=== PATIENT | male | born 1975 | race Caucasian/White ===

== ENCOUNTER → 2021-09-30 | Outpatient (CLI) | payer BC ==
[~2021-09-30] MED LIST: BEBTELOVIMAB (EUA) 175 MG/2 ML VIAL IV NR; SODIUM CHLORIDE 0.9% 500 ML 500 ML in EMPTY BAG 1 BAG IV PRN
[2021-09-30 12:20] VITALS: PULSE 99; TEMP 98
[2021-09-30 13:09] VITALS: BP 128/81; RESP 16
== END ==
LOC: PROCWHC3 12:02
PROVIDERS: ATTEND Physician Assistant Medical
DX: U07.1 COVID-19 (principal); E66.9 Obesity, unspecified; Z28.310 Unvaccinated for COVID-19; F17.200 Nicotine dependence, unspecified, uncomplicated; Z68.31 Body mass index [BMI] 31.0-31.9, adult
CPT/HCPCS: 96374; Q0222; M0222

== ENCOUNTER 2023-04-15 11:57 | Emergency (ER) | payer BC ==
--- NOTE | 2023-04-15 12:23 | ED ---
General Adult HPI - General Chief complaint: Neck Pain/Injury Stated complaint: right swelling in neck Time Seen by Provider: 04/15/23 12:07 Source: patient, RN notes reviewed, old records reviewed Mode of arrival: ambulatory Limitations: no limitations - History of Present Illness Initial comments: 47-year-old presents for evaluation of right-sided neck mass. Patient states he noticed a mass over the past 24 hours. He was seen at urgent care and had x-ray showing soft tissue density and was sent to the emergency department for evaluation by CT imaging. He denies pain. Denies fever. He is a current smoker. He reports prior alcohol use but is not currently drinking. No chest pain or abdominal pain. No difficulty breathing. No difficulty eating or swallowing. - Related Data Allergies Allergy/AdvReac Type Severity Reaction Status Date / Time No Known Allergies Allergy Verified 09/30/21 12:13 Review of Systems ROS Statement: Those systems with pertinent positive or pertinent negative responses have been documented in the HPI. ROS Other: All systems not noted in ROS Statement are negative. Past Medical History Past Medical History: No Reported History History of Any Multi-Drug Resistant Organisms: None Reported Past Surgical History: No Surgical Hx Reported Past Psychological History: No Psychological Hx Reported Past Alcohol Use History: Abuse Past Drug Use History: None Reported General Exam Limitations: no limitations General appearance: alert, in no apparent distress Head exam: Present: atraumatic, normocephalic Eye exam: Present: normal appearance, PERRL Neck exam: Present: other (Supraclavicular swelling on the right, no erythema, no tenderness) Respiratory exam: Present: normal lung sounds bilaterally. Absent: respiratory distress, wheezes Cardiovascular Exam: Present: regular rate, normal rhythm GI/Abdominal exam: Present: soft. Absent: distended, tenderness, guarding Neurological exam: Present: alert, oriented X3, CN II-XII intact. Absent: motor sensory deficit Psychiatric exam: Present: normal affect, normal mood Skin exam: Present: warm, dry, intact. Absent: cyanosis, diaphoretic Course Vital Signs 04/15/23 04/15/23 12:01 13:16 Temperature 98 F Pulse Rate 94 Respiratory 16 18 Rate Blood Pressure 134/89 O2 Sat by Pulse 98 Oximetry Medical Decision Making - Medical Decision Making Was pt. sent in by a medical professional or institution (, PA, LAND EXAMINER, urgent care, hospital, or intermediate...) When possible be specific @ -No Did you speak to anyone other than the patient for history (EMS, parent, family, police, friend...)? What history was obtained from this source @ -No Did you review nursing and triage notes (agree or disagree)? Why? @ -I reviewed and agree with nursing and triage notes Were old charts reviewed (outside hosp., previous admission, EMS record, old EKG, old radiological studies, urgent care reports/EKG's, intermediate records)? Report findings @ -No old charts were reviewed Differential Diagnosis (chest pain, altered mental status, abdominal pain women, abdominal pain men, vaginal bleeding, weakness, fever, dyspnea, syncope, headache, dizziness, GI bleed, back pain, seizure, CVA, palpatations, mental health, musculoskeletal)? @ -Lymphadenopathy, lymphoma, viral infection EKG interpreted by me (3pts min.). @ -As above X-rays interpreted by me (1pt min.). @ -None done CT interpreted by me (1pt min.). @DD showing cervical anterior lymphadenopathy consistent with exam. U/S interpreted by me (1pt. min.). @ -None done What testing was considered but not performed or refused? (CT, X-rays, U/S, labs)? Why? @ -None What meds were considered but not given or refused? Why? @ -None Did you discuss the management of the patient with other professionals (professionals i.e. , PA, LAND EXAMINER, lab, RT, psych nurse, social media content specialist, property field inspector, teacher, major gifts officer, pillowcase sewer)? Give summary @ -No Was smoking cessation discussed for >3mins.? @ -No Was critical care preformed (if so, how long)? @ -No Were there social determinants of health that impacted care today? How? (Homelessness, low income, unemployed, alcoholism, drug addiction, transportation, low edu. Level, literacy, decrease access to med. care, group home, rehab)? @ -No Was there de-escalation of care discussed even if they declined (Discuss DNR or withdrawal of care, Hospice)? DNR status @ -No What co-morbidities impacted this encounter? (DM, HTN, Smoking, COPD, CAD, Cancer, CVA, ARF, Chemo, Hep., AIDS, mental health diagnosis, sleep apnea, morbid obesity)? @ -None Was patient admitted / discharged? Hospital course, mention meds given and route, prescriptions, significant lab abnormalities, going to OR and other pertinent info. @ -47-year-old male with right-sided neck mass and swelling. No pain. Sent in for CT imaging. CT performed showing diffuse lymphadenopathy concerning for lymphoma. Patient's has an appointment arranged with hematology oncology for the following Thursday. Patient is instructed to maintain this appointment. He will return to the emergency department with any worsening or changing symptoms. Undiagnosed new problem with uncertain prognosis? @ yes , lymphadenopathy concern for lymphoma Drug Therapy requiring intensive monitoring for toxicity (Heparin, Nitro, Insulin, Cardizem)? @ -No Were any procedures done? @ -No Diagnosis/symptom? @ -Lymphadenopathy Acute, or Chronic, or Acute on Chronic? @ -[Acute Uncomplicated (without systemic symptoms) or Complicated (systemic symptoms)? @ -default Side effects of treatment? @ -No Exacerbation, Progression, or Severe Exacerbation? @ -No Poses a threat to life or bodily function? How? (Chest pain, [place], [place], pneumonia, PE, COPD, DKA, ARF, appy, cholecystitis, CVA, Diverticulitis, Homicidal, Suicidal, threat to staff... and all critical care pts) @ -[Moderate risk - Lab Data Result diagrams: 04/15/23 12:34 04/15/23 12:34 Lab Results 04/15/23 04/15/23 Range/Units 12:34 12:34 WBC 12.8 H (3.8-10.6) k/uL RBC 5.23 (4.30-5.90) m/uL Hgb 14.7 (13.0-17.5) gm/dL Hct 44.5 (39.0-53.0) % MCV 85.1 (80.0-100.0) fL MCH 28.1 (25.0-35.0) pg MCHC 33.0 (31.0-37.0) g/dL RDW 13.3 (11.5-15.5) % Plt Count 657 H (150-450) k/uL MPV 6.8 Neutrophils % 79 % Lymphocytes % 9 % Monocytes % 7 % Eosinophils % 3 % Basophils % 1 % Neutrophils # 10.2 H (1.3-7.7) k/uL Lymphocytes # 1.2 (1.0-4.8) k/uL Monocytes # 0.9 (0-1.0) k/uL Eosinophils # 0.3 (0-0.7) k/uL Basophils # 0.1 (0-0.2) k/uL Sodium 138 (137-145) mmol/L Potassium 4.4 (3.5-5.1) mmol/L Chloride 98 (98-107) mmol/L Carbon Dioxide 28 (22-30) mmol/L Anion Gap 12 mmol/L BUN 11 (9-20) mg/dL Creatinine 0.89 (0.66-1.25) mg/dL Est GFR (CKD-EPI)AfAm >90 (>60 ml/min/1.73 sqM) Est GFR (CKD-EPI)NonAf >90 (>60 ml/min/1.73 sqM) Glucose 108 H (74-99) mg/dL Calcium 10.3 H (8.4-10.2) mg/dL Total Bilirubin 0.4 (0.2-1.3) mg/dL AST 32 (17-59) U/L ALT 24 (4-49) U/L Alkaline Phosphatase 102 (38-126) U/L Total Protein 8.0 (6.3-8.2) g/dL Albumin 4.6 (3.5-5.0) g/dL Disposition Clinical Impression: Lymphadenopathy Disposition: HOME SELF-CARE Condition: Fair Instructions (If sedation given, give patient instructions): Lymphadenopathy (ED) Additional Instructions: Please follow up with hematology oncology on the Is patient prescribed a controlled substance at d/c from ED?: No Referrals: Naif Roberson [STAFF PHYSICIAN] - 04/22/23 3:00 pm (Appointment at [id number] [place] [address]) None,Stated [REFERRING] - 1-2 days Time of Disposition: 14:34
[2023-04-15 13:05] LABS: Basophils # (A) 0.1 k/uL (0-0.2); Basophils % (A) 1 %; Eosinophils # (A) 0.3 k/uL (0-0.7); Eosinophils % (A) 3 %; HCT 44.5 % (39.0-53.0); HGB 14.7 gm/dL (13.0-17.5); Lymphocytes # (A) 1.2 k/uL (1.0-4.8); Lymphocytes % (A) 9 %; MCH 28.1 pg (25.0-35.0); MCV 85.1 fL (80.0-100.0); Mean Platelet Volume 6.8; Monocytes # (A) 0.9 k/uL (0-1.0); Monocytes % (A) 7 %; Neutrophils # (A) 10.2 k/uL (1.3-7.7); Neutrophils % (A) 79 %; Platelet Count 657 k/uL (150-450); RBC 5.23 m/uL (4.30-5.90); RDW 13.3 % (11.5-15.5); WBC 12.8 k/uL (3.8-10.6)
[2023-04-15 13:10] LABS: ALT 24 U/L (4-49); AST 32 U/L (17-59); African American GFR (CKD) >90 (>60 ml/min/1.73 sqM); Albumin 4.6 g/dL (3.5-5.0); Alkaline Phosphatase 102 U/L (38-126); Anion Gap 12 mmol/L; Blood Urea Nitrogen 11 mg/dL (9-20); Calcium 10.3 mg/dL (8.4-10.2); Carbon Dioxide 28 mmol/L (22-30); Chloride 98 mmol/L (98-107); Glucose 108 mg/dL (74-99); Non-African American GFR(CKD) >90 (>60 ml/min/1.73 sqM); Potassium 4.4 mmol/L (3.5-5.1); Sodium 138 mmol/L (137-145); Total Bilirubin 0.4 mg/dL (0.2-1.3)
--- NOTE | 2023-04-15 13:24 | CT ---
EXAMINATION TYPE: CT neck chest w con CT DLP: 1129.3 mGycm, Automated exposure control for dose reduction was used. DATE OF EXAM: 04/15/2023 1:03 PM COMPARISON: 07/21/2015. CLINICAL INDICATION:Male, 47 years old with history of rt sided neck mass;, Right sided neck mass TECHNIQUE: Standard enhanced CT of the neck and chest. Axial sections with coronal and sagittal refo rmats were obtained. Contrast used:100 ml mL of Isovue 300 with IV Contrast, (none if empty) Oral contrast used: (none if empty) FINDINGS: Brain: Visualized portions are grossly unremarkable. Orbits: Unremarkable Sinuses: Grossly unremarkable. Spaces of the neck: There are right lower neck/shoulder enlarged lymph nodes the largest measuring 43 x 32 mm. Musculoskeletal: No acute osseous pathology. Lymph nodes: Multiple nonenlarged lymph nodes are seen along both anterior chains of the neck. Vascular structures: Visualized major arteries are patent without evidence of aneurysm. Thoracic Inlet/airway: Airway is patent. The lung apices are clear. Soft tissues/Thyroid: Thyroid and remainder of the soft tissues are unremarkable. Other: none. LUNGS/ PLEURA: The lung parenchyma appears unremarkable. AIRWAY: Patent and unremarkable. HEART: Size within normal limits. MEDIASTINUM: Scattered enlarged lymph nodes throughout the mediastinum and right hilar region hilar r egion measuring renal up to 23 mm. Additionally there is conglomerate right paratracheal lymphadenopa thy. AP windowr lymph node measuring up to 2.0 cm in short axis. VASCULATURE: No aortic aneurysm. MUSCULOSKELETAL: No acute osseous abnormalities SOFT TISSUES/LYMPH NODES: Unremarkable. UPPER ABDOMEN: Upper abdomen demonstrates enlarged lymph nodes which are partially visualized in the retroperitoneum and gastrohepatic region. The largest measuring 2.4 cm. IMPRESSION Right shoulder/neck lymph nodes as well as mediastinal and upper abdominal/retroperitoneal lymphadeno brianna. Findings compatible with neoplastic process. Correlate for lymphoma versus other etiologies. O ncology workup recommended
[2023-04-15 14:45] VITALS: BP 139/74; PULSE 81; RESP 16; TEMP 98.1
== END 2023-04-15 14:44 | disposition home or self-care (01) ==
LOC: EC 11:57
DX: R59.1 Generalized enlarged lymph nodes (principal); F17.200 Nicotine dependence, unspecified, uncomplicated
CPT/HCPCS: 99284; 36415; 80053; 85025; 70491; 71260; Q9967

== ENCOUNTER 2023-05-12 12:11 | Day surgery (SDC) | payer BC ==
[2023-05-12] MEDS ORDERED: ALPRAZolam 0.5 MG TAB PO STA (13:32)
[2023-05-12 13:39] VITALS: RESP 16; TEMP 97.6
[2023-05-12 14:54] VITALS: BP 111/75; PULSE 98
--- NOTE | 2023-05-12 15:16 | US ---
ULTRASOUND GUIDED CORE BIOPSY RIGHT NECK LYMPH NODE: CLINICAL HISTORY: Right neck lymph node FINDINGS: The procedure was explained to the patient. The risks, complications, benefits and alternatives were discussed and any questions were answered. Informed consent was obtained. Patient was placed supin e on the ultrasound table and prepped and draped in the usual sterile fashion. Utilizing a 18 gauge needle, two passes were made into the right neck lymph node. Patient was stable throughout the procedure. Pathology is pending. All elements of maximal barrier technique were utilized. IMPRESSION: 1. Successful ultrasound guided core biopsy right neck lymph node.
== END 2023-05-12 14:20 | disposition home or self-care (01) ==
LOC: RADPROMAIN 12:11
PROVIDERS: ATTEND Internal Medicine
DX: R59.0 Localized enlarged lymph nodes (principal); C96.9 Malignant neoplasm of lymphoid, hematopoietic and related tissue, unspecified
CPT/HCPCS: 38505; 76942; 88305; 88341; 88342

== ENCOUNTER → 2023-06-04 | Outpatient (CLI) | payer BC ==
--- NOTE | 2023-06-08 15:57 | PE ---
EXAMINATION TYPE: PET CT fusion skull to thigh DATE OF EXAM: 06/04/2023 COMPARISON: None Prior PET/CT: None at this location HISTORY: Lymphadenopathy TECHNIQUE: Following the intravenous administration of 12.3 mCi of F-18 FDG, whole body images are p erformed from the skull base to the midthigh. Images are reviewed on the computer in the coronal, ax ial, and sagittal planes. Reconstructed rotating images are created on independent workstation and r eviewed on the computer. A localization and attenuation correction CT is performed in conjunction w ith the PET scan. DLP: 813.32 mGycm SCAN: Initial Blood glucose: 90 mg/dL Average Mediastinum SUV: 1.81 Average Liver SUV: 2.21 FINDINGS: NECK: Abnormal uptake is in the supraclavicular lymph nodes. Example image 54, left SUV 11.09, right SUV 8.15. Additional right supraclavicular lymph nodes are present. THORAX: There is extensive adenopathy within the mediastinum including superior mediastinum, paratrac heal, periaortic subcarinal, peribronchial, paraesophageal, para-aortic and retrocrural. Additional u ptake is within the posterior medial paraspinal soft tissue. ABDOMEN: Extensive adenopathy including celiac axis, periportal, periaortic, retrocaval. PELVIS: No abnormal uptake OSSEOUS STRUCTURES: No abnormal uptake LOCALIZATION CT: Extensive adenopathy is evident and appears to correspond to the areas of uptake. No nobstructing renal stone is in the left mid kidney. Couple punctate nonobstructing upper pole right r enal stones are present. COMPARISON: Adenopathy appears similar to comparison of 04/15/2023. IMPRESSION: 1. Extensive abnormal uptake within adenopathy within the supraclavicular regions, through the medias tinum and thoracic paraspinal soft tissue, and within the upper abdomen.
== END | disposition home or self-care (01) ==
LOC: RADPETMAIN 07:18
PROVIDERS: ATTEND Internal Medicine
DX: R59.0 Localized enlarged lymph nodes (principal)
CPT/HCPCS: 78815; A9552

== ENCOUNTER 2023-07-07 12:25 | Day surgery (SDC) | payer BC ==
[2023-07-07] MEDS: ALPRAZolam 0.5 MG TAB PO STA (12:52)
[2023-07-07 13:34] VITALS: RESP 16; TEMP 98.1
[2023-07-07 15:10] VITALS: BP 138/88; PULSE 90
--- NOTE | 2023-07-07 15:52 | US ---
EXAMINATION TYPE: US biopsy lymph node DATE OF EXAM: 07/07/2023 2:25 PM CLINICAL INDICATION:Male, 47 years old with history of R59.0 LOCALIZED ENLARGED LYMPH NODES; , thyroi d nodule. COMPARISON: 05/12/2023 ATTENDING: Dr. Toby Contreras PROCEDURE: Informed consent was obtained. The risks and benefits of the procedure were discussed with the patien t. The site was marked. Timeout procedure was performed Ultrasound imaging of the left neck demonstrates lymphadenopathy The patient was prepped, draped in the usual sterile fashion, and locally anesthetized with 1% lidoca ine. Right Four 18-gauge core biopsies were obtained. Samples were sent to the pathology department f or further analysis. Patient tolerated the procedure without incident and was sent home in stable co ndition. IMPRESSION: Successful 18-gauge core biopsy of the right neck lymph node.
== END 2023-07-07 14:25 | disposition home or self-care (01) ==
LOC: RADPROMAIN 12:25
PROVIDERS: ATTEND Internal Medicine
DX: C79.89 Secondary malignant neoplasm of other specified sites (principal)
CPT/HCPCS: 38505; 76942; 88305; 88341; 88342

== ENCOUNTER → 2023-09-07 | Outpatient (CLI) | payer BC ==
[2023-09-07 14:07] LABS: African American GFR (CKD) 77 (>60 ml/min/1.73 sqM); Blood Urea Nitrogen 13 mg/dL (9-20); Non-African American GFR(CKD) 66 (>60 ml/min/1.73 sqM)
--- NOTE | 2023-09-07 16:00 | CT ---
EXAMINATION TYPE: CT soft tissue neck w con DATE OF EXAM: 09/07/2023 COMPARISON: 04/15/2023 and 06/04/2023 HISTORY: 47-year-old male C80.0 Suspected CA. TECHNIQUE: Contiguous axial scanning of the soft tissues of the neck performed with IV Contrast, steven ent injected with 100ml mL of Isovue 300. Coronal/sagittal reconstructions performed. CT DLP: 3097.7 mGycm Automated exposure control for dose reduction was used. FINDINGS: Lower right cervical adenopathy measures up to 3.7 cm versus 3.5 cm previously. Left paramedian lower neck adenopathy measures up to 2.2 cm versus 1.2 cm, previously. Medial left supraclavicular adenopathy measures 3.4 cm versus 2.0 cm, previously. Medial right lower cervical adenopathy measures 2.7 cm versus 1.9 cm, previously. Small 2.5 cm intramuscular lipoma medial right pectoralis major. Small 8 mm hypodense nodule right lobe of the thyroid gland. Submandibular glands are satisfactory. Parotid glands are mildly atrophic. Punctate calcifications of the bilateral palatine tonsils. Nasopharynx and oropharynx are otherwise c lear. Epiglottis and prevertebral soft tissues are satisfactory. Glottic and subglottic structures as well as the tracheal column are clear. Moderate spondylotic change at C6/C7. Visualized intracranial structures, orbits and globes, paranasal sinuses, and mastoid air cells appea r clear. IMPRESSION: SLIGHT PROGRESSION IN MID AND LOWER CERVICAL ADENOPATHY COMPARED TO 06/04/2023 WITH LYMPH NODES MEASUR ING UP TO 3.7 CM.
--- NOTE | 2023-09-07 16:55 | CT ---
EXAMINATION TYPE: CT ChestAbdPelvis w con DATE OF EXAM: 09/07/2023 COMPARISON: Head CT 06/04/2023 HISTORY: 47-year-old male C80.0, Suspected CA. TECHNIQUE: Contiguous axial scanning of the chest, abdomen, and pelvis performed with IV Contrast, pa tient injected with 100ml mL of Isovue 300. Delayed images through the kidneys were obtained. Coronal /sagittal reconstructions performed. CT DLP: 3097.7 mGycm Automated exposure control for dose reduction was used. FINDINGS: Chest: Heart is normal size with small anterior pericardial effusion which is unchanged. Aorta normal caliber with conventional arch vessel branching anatomy. Redemonstrated diffuse mediastinal adenopathy. Lymph nodes have enlarged in the interval currently me asuring up to 5.1 cm versus up to 3.2 cm, previously. Additional posterior mediastinal paraspinal adenopathy and retrocrural adenopathy measuring up to 3.8 cm versus 2.5 cm, previously. There is some pleural-based nodularity posteromedial lower lung measuring up to 3.7 cm on the right v ersus 2.1 cm previously. New small right and trace left pleural effusions. Some patchy density at the right base probably atel ectasis. ABDOMEN: No definite focal liver lesion is seen. There is anterior displacement of the main portal vein due to extensive underlying gastrohepatic and loulou hepatic adenopathy. This extends to the retroperitoneum with no conglomerate adenopathy measuri ng up to 14.3 cm. Clustered, prominent nodes in the gastrohepatic ligament region measuring up to 7.2 cm, previously. Individual retroperitoneal nodes measure up to 7.0 cm on the left versus 4.3 cm, previously. There is moderate left-sided hydronephrosis and delayed excretion of contrast from the left kidney. T he reason for this unclear. 5 mm nonobstructing left renal calculus. No dilated small bowel, free fluid, or free air. Normal appendix. Mild stool burden. Mildly redundant sigmoid colon. No pericolonic inflammatory dinero e. Pelvis: Bladder incompletely distended. No abnormal fluid collection in the pelvis or pelvic lymphadenopathy. Bones: Mild degenerative change of the hips. Facet arthropathy lower lumbar spine. Normal variant sternal fo ramen. No osseous destructive process. IMPRESSION: 1. PROGRESSIVE ANTERIOR, MIDDLE, AND POSTERIOR MEDIASTINAL ADENOPATHY. WORSENING RETROCRURAL ADENOPAT HY. INCREASING PLEURAL-BASED NODULARITY POSTEROMEDIAL MID AND LOWER LUNGS NOW WITH SMALL RIGHT AND TR SARAI LEFT PLEURAL EFFUSIONS. 2. WORSENING, NOW CONGLOMERATE UPPER ABDOMINAL AND RETROPERITONEAL ADENOPATHY. 3. MODERATE LEFT-SIDED HYDRONEPHROSIS APPEARS WORSENED FROM PRIOR. UNCLEAR ETIOLOGY.
== END | disposition home or self-care (01) ==
LOC: RADCTMAIN 13:04
PROVIDERS: ATTEND Internal Medicine
DX: C80.0 Disseminated malignant neoplasm, unspecified (principal); J90 Pleural effusion, not elsewhere classified; R59.0 Localized enlarged lymph nodes; N13.30 Unspecified hydronephrosis; R91.8 Other nonspecific abnormal finding of lung field
CPT/HCPCS: 82565; 84520; 70491; 71260; 74177; 36415; Q9967

== ENCOUNTER 2023-09-24 14:15 | Inpatient (IN) | payer BC ==
--- NOTE | 2023-09-24 14:37 | ED ---
Recheck HPI - General Chief Complaint: Recheck/Abnormal Lab/Rx Stated Complaint: Abd labs-sent from PCP Time Seen by Provider: 09/24/23 14:24 Source: patient, RN notes reviewed, old records reviewed Mode of arrival: ambulatory Limitations: no limitations - History of Present Illness Initial Comments: This is a 48-year-old male to the ER for evaluation today. Patient has new diagnosis of cancer presents to office today with evaluation in regards to po sitive outpatient lab test of increasing calcium levels. Patient himself feels weak and has been feeling increasingly weak here in the ER but has no real significant complaints MD Complaint: abnormal lab -: minutes(s) Returns Today for: Called Because of Abnormal Lab/Test, persistent/worsening pain related to initial visit Symptoms Since Prior Visit: worsening pain Context: planned re-check, called for abnormal lab result Associated Symptoms: none Treatments Prior to Arrival: other - Related Data Home Medications Medication Instructions Recorded Confirmed Dextroamphetamine/Amphetamine 30 mg PO TID PRN 04/30/23 09/30/23 [Adderall] HYDROcodone/APAP 7.5-325MG [[place] 1 tab PO TID PRN 04/30/23 09/30/23 7.5-325] lisinopriL [Zestril] 10 mg PO DAILY 04/30/23 09/30/23 Cholecalciferol (Vitamin D3) 1,250 mcg PO Q28D 09/24/23 09/30/23 [Vitamin D3 (1250 Mcg = 50,000 Iu)] Cyanocobalamin [Vitamin B-12 1,000 mcg SQ TU 09/24/23 09/30/23 Injection] OLANZapine [ZyPREXA] 2.5 - 5 mg PO DIRECTED 09/24/23 09/30/23 ondansetron HCL [Zofran] 8 mg PO Q6H PRN 09/24/23 09/30/23 Acetaminophen/Diphenhydramine 2 tab PO HS PRN 09/30/23 09/30/23 [Tylenol PM 500-25mg] Docusate [Colace] 100 mg PO DAILY PRN 09/30/23 09/30/23 amLODIPine [Norvasc] 5 mg PO DIRECTED 09/30/23 09/30/23 Allergies Allergy/AdvReac Type Severity Reaction Status Date / Time No Known Allergies Allergy Verified 09/30/23 19:26 Review of Systems ROS Statement: Those systems with pertinent positive or pertinent negative responses have been documented in the HPI. ROS Other: All systems not noted in ROS Statement are negative. Past Medical History Past Medical History: Cancer, Hyperlipidemia, Hypertension Additional Past Medical History / Comment(s): cervical and supraclavicular lymphadenopathy , constipated recently .recent tx for bronchitis. prod cough. abx and steroids.( pt states Dr Dickerson is aware) .still testing to confirm cancer . recent PET scan. left foot pain from prior injury playing basketball History of Any Multi-Drug Resistant Organisms: None Reported Past Surgical History: No Surgical Hx Reported Additional Past Surgical History / Comment(s): lymph node core biopsy right suprclavicular x2. - xanax pt states he was not asleep Past Anesthesia/Blood Transfusion Reactions: No Reported Reaction Additional Past Anesthesia/Blood Transfusion Reaction / Comment(s): no history transfusions Past Psychological History: ADD/ADHD Smoking Status: Current every day smoker - Past Family History Father Family Medical History: Diabetes Mellitus General Exam Limitations: no limitations General appearance: alert, in no apparent distress Head exam: Present: atraumatic, normocephalic, normal inspection Eye exam: Present: normal appearance, PERRL, EOMI. Absent: scleral icterus, conjunctival injection, periorbital swelling ENT exam: Present: normal exam, mucous membranes moist Neck exam: Present: normal inspection. Absent: tenderness, meningismus, lymphadenopathy Respiratory exam: Present: normal lung sounds bilaterally. Absent: respiratory distress, wheezes, rales, rhonchi, stridor Cardiovascular Exam: Present: regular rate, normal rhythm, normal heart sounds. Absent: systolic murmur, diastolic murmur, rubs, gallop, clicks GI/Abdominal exam: Present: soft, normal bowel sounds. Absent: distended, tenderness, guarding, rebound, rigid Extremities exam: Present: normal inspection, full ROM, normal capillary refill. Absent: tenderness, pedal edema, joint swelling, calf tenderness Back exam: Present: normal inspection Neurological exam: Present: alert, oriented X3, CN II-XII intact Psychiatric exam: Present: normal affect, normal mood Skin exam: Present: warm, dry, intact, normal color. Absent: rash Course Vital Signs 09/24/23 09/24/23 09/24/23 14:21 15:15 16:14 Temperature 98.0 F 97.7 F 98.3 F Pulse Rate 88 75 73 Respiratory 20 17 17 Rate Blood Pressure 163/94 166/106 167/113 O2 Sat by Pulse 98 97 100 Oximetry 09/24/23 09/24/23 09/24/23 17:02 18:05 18:30 Temperature 97.9 F Pulse Rate 71 73 71 Respiratory 20 18 17 Rate Blood Pressure 165/111 167/105 163/97 O2 Sat by Pulse 97 98 97 Oximetry 09/24/23 09/24/23 09/24/23 19:30 20:45 21:17 Temperature Pulse Rate 73 75 69 Respiratory 21 19 18 Rate Blood Pressure 146/87 175/116 182/110 O2 Sat by Pulse 97 98 99 Oximetry 09/24/23 21:30 Temperature Pulse Rate 67 Respiratory 18 Rate Blood Pressure 150/91 O2 Sat by Pulse 98 Oximetry - Reevaluation(s) Reevaluation #1: 09/24/23 16:44 Records reviewed Reevaluation #2: 09/24/23 16:44 Symptoms are unchanged Reevaluation #3: 09/24/23 16:44 Patient informed of results and questions answered Reevaluation #4: Was pt. sent in by a medical professional or institution (, PA, TOW OPERATOR, urgent care, hospital, or [facility]...) When possible be specific @ -no Did you speak to anyone other than the patient for history (EMS, parent, family, police, friend...)? What history was obtained from this source @ -no Did you review nursing and triage notes (agree or disagree)? Why? @ -agree Are old charts reviewed (outside hosp., previous admission, EMS record, old EKG, old radiological studies, urgent care reports/EKG's, [facility] records)? Report findings @ -yes Differential Diagnosis (chest pain, altered mental status, abdominal pain women, abdominal pain men, vaginal bleeding, weakness, fever, dyspnea, syncope, headache, dizziness, GI bleed, back pain, seizure, CVA, palpatations, mental health, musculoskeletal)? @ -prior EKG interpreted by me (3pts min.). @ -yes X-rays interpreted by me (1pt min.). @ -no CT interpreted by me (1pt min.). @ -no U/S interpreted by me (1pt. min.). @ -no What testing was considered but not performed or refused? (CT, X-rays, U/S, labs)? Why? @ -none What meds were considered but not given or refused? Why? @ -none Did you discuss the management of the patient with other professionals (professionals i.e. , PA, TOW OPERATOR, lab, RT, psych nurse, social service technician, numerical control nesting operator, teacher, chief data officer, high risk case manager)? Give summary @ -no Was smoking cessation discussed for >3mins.? @ -no Was critical care preformed (if so, how long)? @ -yes31 Were there social determinants of health that impacted care today? How? (Homelessness, low income, unemployed, alcoholism, drug addiction, transportation, low edu. Level, literacy, decrease access to med. care, long-term, rehab)? @ -none Was there de-escalation of care discussed even if they declined (Discuss DNR or withdrawal of care, Hospice)? DNR status @ -no What co-morbidities impacted this encounter? (DM, HTN, Smoking, COPD, CAD, Cancer, CVA, ARF, Chemo, Hep., AIDS, mental health diagnosis, sleep apnea, morbid obesity)? @ -none Was patient admitted / discharged? Hospital course, mention meds given and route, prescriptions, significant lab abnormalities, going to OR and other pertinent info. @ - 48 male with cancer malignant cancer coming in for elevation of calcium level on an outpatient basis. Patient also has acute kidney injury and will admit for IV hydration Admitted Undiagnosed new problem with uncertain prognosis? @ -no Drug Therapy requiring intensive monitoring for toxicity (Heparin, Nitro, Insuli n, Cardizem)? @ -no Were any procedures done? @ -no Diagnosis/symptom? @ -Renal failure hypercalcemia Acute, or Chronic, or Acute on Chronic? @ -Acute Uncomplicated (without systemic symptoms) or Complicated (systemic symptoms)? @ -Complicated Side effects of treatment? @ -no Exacerbation, Progression, or Severe Exacerbation? @ -exacerbation Poses a threat to life or bodily function? How? (Chest pain, USA, MO, pneumonia, PE, COPD, DKA, ARF, appy, cholecystitis, CVA, Diverticulitis, Homicidal, Suicidal, threat to staff... and all critical care pts) @ -yes with significant lab abnormalities Reevaluation #5: Differential Weakness: Hypoglycemia, shock, sepsis, hyponatremia, anemia, infection, MO, ETOH, adverse medicine reaction, overdose, stroke, this is not meant to be an all-inclusive list. - Consultations Consultation #1: Spoke with Dr. Hester to admit this patient Medical Decision Making - Medical Decision Making 48 male with cancer malignant cancer coming in for elevation of calcium level on an outpatient basis. Patient also has acute kidney injury and will admit for IV hydration - Lab Data Result diagrams: 09/25/23 08:22 09/29/23 06:54 Lab Results 09/24/23 09/24/23 Range/Units 14:38 14:38 WBC 10.7 H (3.8-10.6) k/uL RBC 4.45 (4.30-5.90) m/uL Hgb 12.7 L (13.0-17.5) gm/dL Hct 37.3 L (39.0-53.0) % MCV 83.8 (80.0-100.0) fL MCH 28.5 (25.0-35.0) pg MCHC 34.0 (31.0-37.0) g/dL RDW 16.2 H (11.5-15.5) % Plt Count 372 (150-450) k/uL MPV 10.3 Neutrophils % 78 % Lymphocytes % 7 % Monocytes % 11 % Eosinophils % 3 % Basophils % 0 % Neutrophils # 8.3 H (1.3-7.7) k/uL Lymphocytes # 0.7 L (1.0-4.8) k/uL Monocytes # 1.2 H (0-1.0) k/uL Eosinophils # 0.3 (0-0.7) k/uL Basophils # 0.1 (0-0.2) k/uL Anisocytosis Slight Sodium 141 (137-145) mmol/L Potassium 3.9 (3.5-5.1) mmol/L Chloride 102 (98-107) mmol/L Carbon Dioxide 30 (22-30) mmol/L Anion Gap 9 mmol/L BUN 33 H (9-20) mg/dL Creatinine 2.49 H (0.66-1.25) mg/dL Est GFR (CKD-EPI)AfAm 34 (>60 ml/min/1.73 sqM) Est GFR (CKD-EPI)NonAf 29 (>60 ml/min/1.73 sqM) Glucose 96 (74-99) mg/dL Calcium 13.5 H* (8.4-10.2) mg/dL Ionized Calcium Rohit 7.6 H* (4.5-5.3) mg/dL Phosphorus 4.0 (2.5-4.5) mg/dL Magnesium 1.5 L (1.6-2.3) mg/dL Total Bilirubin 0.6 (0.2-1.3) mg/dL AST 28 (17-59) U/L ALT 15 (4-49) U/L Alkaline Phosphatase 125 (38-126) U/L Total Protein 7.6 (6.3-8.2) g/dL Albumin 4.2 (3.5-5.0) g/dL - EKG Data -: EKG Interpreted by Me (EKG sinus 71 [place] 148 QRS 91 QTc 390) Disposition Clinical Impression: Hypercalcemia, SHANEKA (acute kidney injury) Disposition: ADMITTED IP TO THIS HOSP Condition: Fair Is patient prescribed a controlled substance at d/c from ED?: No Time of Disposition: 16:45
[2023-09-24] MEDS: SODIUM CHLORIDE 0.9% 1,000 ML IV STA ×2 (14:41)
[2023-09-24 15:12] LABS: Ionized Calcium 7.6 mg/dL (4.5-5.3)
[2023-09-24 15:14] LABS: ALT 15 U/L (4-49); AST 28 U/L (17-59); African American GFR (CKD) 34 (>60 ml/min/1.73 sqM); Albumin 4.2 g/dL (3.5-5.0); Alkaline Phosphatase 125 U/L (38-126); Anion Gap 9 mmol/L; Blood Urea Nitrogen 33 mg/dL (9-20); Carbon Dioxide 30 mmol/L (22-30); Chloride 102 mmol/L (98-107); Glucose 96 mg/dL (74-99); Magnesium 1.5 mg/dL (1.6-2.3); Non-African American GFR(CKD) 29 (>60 ml/min/1.73 sqM); Potassium 3.9 mmol/L (3.5-5.1); Sodium 141 mmol/L (137-145); Total Bilirubin 0.6 mg/dL (0.2-1.3); Total Protein 7.6 g/dL (6.3-8.2)
[2023-09-24 15:21] LABS: Calcium 13.5 mg/dL (8.4-10.2)
[2023-09-24 15:56] LABS: Anisocytosis Slight; Basophils # (A) 0.1 k/uL (0-0.2); Basophils % (A) 0 %; Eosinophils # (A) 0.3 k/uL (0-0.7); Eosinophils % (A) 3 %; HCT 37.3 % (39.0-53.0); HGB 12.7 gm/dL (13.0-17.5); Lymphocytes # (A) 0.7 k/uL (1.0-4.8); Lymphocytes % (A) 7 %; MCH 28.5 pg (25.0-35.0); MCV 83.8 fL (80.0-100.0); Mean Platelet Volume 10.3; Monocytes # (A) 1.2 k/uL (0-1.0); Monocytes % (A) 11 %; Neutrophils # (A) 8.3 k/uL (1.3-7.7); Neutrophils % (A) 78 %; Platelet Count 372 k/uL (150-450); RBC 4.45 m/uL (4.30-5.90); RDW 16.2 % (11.5-15.5); WBC 10.7 k/uL (3.8-10.6)
[2023-09-24] MEDS: SODIUM CHLORIDE 0.9% 1,000 ML IV ONE (16:22)
[2023-09-24] MEDS ORDERED: NALOXONE 0.4 MG/ML 1 ML VIAL IV PRN (16:41)
[2023-09-24] MEDS: LABETALOL 5 MG/ML VIAL MDV IVP STA ×2 (18:22→21:18)
[2023-09-24] MEDS: hydrALAZINE HCL 20 MG/ML 1 ML VIAL IVP PRN (22:39)
[2023-09-25 09:40] LABS: Anisocytosis Slight; Basophils # (A) 0.1 k/uL (0-0.2); Basophils % (A) 1 %; Eosinophils # (A) 0.3 k/uL (0-0.7); Eosinophils % (A) 2 %; HCT 35.7 % (39.0-53.0); HGB 11.8 gm/dL (13.0-17.5); Lymphocytes # (A) 0.9 k/uL (1.0-4.8); Lymphocytes % (A) 7 %; MCH 28.1 pg (25.0-35.0); MCHC 33.1 g/dL (31.0-37.0); MCV 84.9 fL (80.0-100.0); Mean Platelet Volume 10.2; Monocytes # (A) 1.3 k/uL (0-1.0); Monocytes % (A) 10 %; Neutrophils # (A) 10.2 k/uL (1.3-7.7); Neutrophils % (A) 79 %; Platelet Count 421 k/uL (150-450); RBC 4.21 m/uL (4.30-5.90); RDW 16.5 % (11.5-15.5); WBC 12.9 k/uL (3.8-10.6)
[2023-09-25 10:14] LABS: ALT 14 U/L (4-49); AST 24 U/L (17-59); African American GFR (CKD) 34 (>60 ml/min/1.73 sqM); Albumin 3.9 g/dL (3.5-5.0); Alkaline Phosphatase 132 U/L (38-126); Anion Gap 7 mmol/L; Blood Urea Nitrogen 28 mg/dL (9-20); Calcium 12.9 mg/dL (8.4-10.2); Carbon Dioxide 27 mmol/L (22-30); Chloride 108 mmol/L (98-107); Glucose 87 mg/dL (74-99); Magnesium 1.5 mg/dL (1.6-2.3); Non-African American GFR(CKD) 29 (>60 ml/min/1.73 sqM); Phosphorus 3.7 mg/dL (2.5-4.5); Potassium 3.8 mmol/L (3.5-5.1); Sodium 142 mmol/L (137-145); Total Bilirubin 0.4 mg/dL (0.2-1.3); Total Protein 6.9 g/dL (6.3-8.2)
--- NOTE | 2023-09-25 10:40 | P.NPCON ---
History of Present Illness - Reason for Consult acute renal failure - History of Present Illness Reason for consultation: Acute kidney injury History of present illness: Patient is a 48-year-old male seen in renal consultation for acute kidney injury. Patient's creatinine dated September 09, 2023 was 1.2. This admission it has been stable at 2.5. Patient had blood work done outpatient and was advised to go to the hospital due to high calcium level. Calcium level on admission was 13.5 with ionized calcium at 7.6. Patient has been receiving normal saline at 130 cc an hour. Calcium level this morning was 12.9. Patient states he was recently diagnosed with testicular cancer and is scheduled to start chemotherapy next week. He does admit to taking Tums as needed. Patient states he took about 4-6 tabs of Tums in the last week. He also admits to taking Aleve as needed. Patient states he was also taking a vitamin D supplement once a month. No evidence of hypotension. In fact blood pressures have been on the higher side. He was on lisinopril outpatient which is currently held. Patient had a CT of the chest abdomen and pelvis done with IV contrast on September 07, 2023 which showed increasing pleural nodularity, mediastinal adenopathy, abdominal and retroperitoneal adenopathy as well as left-sided hydronephrosis. Patient denies history of diabetes or coronary artery disease. Denies family history of renal disease. Oral intake has been poor the last few days and he did vomit once. Vital signs are stable. General: No acute distress. HEENT: Head exam is unremarkable. LUNGS: No audible rhonchi or wheezes. HEART: Rate and Rhythm are regular. ABDOMEN: Nontender. EXTREMITITES: No edema. Past Medical History Past Medical History: Cancer, Hyperlipidemia, Hypertension Additional Past Medical History / Comment(s): cervical and supraclavicular lymphadenopathy , constipated recently .recent tx for bronchitis. prod cough. abx and steroids.( pt states Dr Dickerson is aware) .still testing to confirm cancer . recent PET scan. left foot pain from prior injury playing basketball History of Any Multi-Drug Resistant Organisms: None Reported Past Surgical History: No Surgical Hx Reported Additional Past Surgical History / Comment(s): lymph node core biopsy right suprclavicular x2. - xanax pt states he was not asleep Past Anesthesia/Blood Transfusion Reactions: No Reported Reaction Additional Past Anesthesia/Blood Transfusion Reaction / Comment(s): no history transfusions Past Psychological History: ADD/ADHD Smoking Status: Current every day smoker Past Alcohol Use History: None Reported Additional Past Alcohol Use History / Comment(s): smoking less when sick. 12-13 cigarettes Past Drug Use History: None Reported - Past Family History Father Family Medical History: Diabetes Mellitus Medications and Allergies Home Medications Medication Instructions Recorded Confirmed Type Dextroamphetamine/Amphetamine 30 mg PO TID PRN 04/30/23 09/24/23 History [Adderall] HYDROcodone/APAP 7.5-325MG [[place] 1 tab PO TID PRN 04/30/23 09/24/23 History 7.5-325] lisinopriL [Zestril] 10 mg PO DAILY 04/30/23 09/24/23 History Cholecalciferol (Vitamin D3) 1,250 mcg PO Q28D 09/24/23 09/24/23 History [Vitamin D3 (1250 Mcg = 50,000 Iu)] Cyanocobalamin [Vitamin B-12 1,000 mcg SQ TU 09/24/23 09/24/23 History Injection] OLANZapine [ZyPREXA] 2.5 - 5 mg PO DIRECTED 09/24/23 09/24/23 History ondansetron HCL [Zofran] 8 mg PO Q6H PRN 09/24/23 09/24/23 History Allergies Allergy/AdvReac Type Severity Reaction Status Date / Time rosuvastatin [From Crestor] AdvReac Nausea & Verified 09/24/23 16:16 Vomiting Physical Exam Vitals: Vital Signs Temp Pulse Pulse Resp BP BP Pulse Ox 09/25/23 09:16 97.8 F 66 16 161/85 96 09/25/23 04:00 80 16 163/92 97 09/24/23 23:07 97.7 F 72 16 182/94 97 09/24/23 21:30 67 18 150/91 98 09/24/23 21:17 69 18 182/110 99 09/24/23 20:45 75 19 175/116 98 09/24/23 19:30 73 21 146/87 97 09/24/23 18:30 71 17 163/97 97 09/24/23 18:05 97.9 F 73 18 167/105 98 09/24/23 17:02 71 20 165/111 97 09/24/23 16:14 98.3 F 73 17 167/113 100 09/24/23 15:15 97.7 F 75 17 166/106 97 09/24/23 14:21 98.0 F 88 20 163/94 98 Intake and Output 09/24/23 09/25/23 09/25/23 22:59 06:59 14:59 Intake Total 540 118 Balance 540 118 Intake: Oral 540 118 Other: # Voids 1 Weight 102.965 kg Results - Lab Results Most recent lab results Calcium 12.9 mg/dL (8.4-10.2) H 09/25/23 09:21 Phosphorus 3.7 mg/dL (2.5-4.5) 09/25/23 09:21 Magnesium 1.5 mg/dL (1.6-2.3) L 09/25/23 09:21 09/25/23 08:22 09/25/23 09:21 Assessment and Plan Plan: Assessment: 1. Acute kidney injury secondary to ATN secondary to hypercalcemia. Also genet rn for obstructive uropathy with recent CAT scan showing left-sided hydronephrosis. Creatinine stable at 2.5. Creatinine 1.2 dated September 09, 2023. 2. Hypercalcemia of malignancy further worsen with the use of Tums and vitamin D supplementation. 3. Left-sided hydronephrosis. 4. Recently diagnosed malignancy with significant adenopathy noted on CAT scan. Oncology consulted. 5. Hypomagnesemia from poor intake. Plan: Resume IV fluids with normal saline at 125 cc an hour. Calcitonin IM x 1 dose today. Zometa 4 mg IV once today. Replace magnesium. Avoid nephrotoxins. Continue to avoid calcium and vitamin D supplementation at this time. Check bladder scan to rule out urinary retention. Consult urology for the hydronephrosis. Check urinalysis. Check PTH and vitamin D level. Check calcitriol level as well as serum electrophoresis with immunofixation. Thank you for the consultation. I will continue to follow the patient with you during his hospital stay.
[2023-09-25] MEDS: CALCITONIN INJ 200 UNIT/ML (MDV) VIAL IM ONE (12:20)
[2023-09-25] MEDS: ZOLEDRONIC ACID 4 MG in SODIUM CHLORIDE 0.9% 100 ML IV ONE (12:21)
[2023-09-25] MEDS: SODIUM CHLORIDE 0.9% 1,000 ML IV SCH (12:21)
[2023-09-25] MEDS: ONDANSETRON 4 MG/2 ML VIAL IVP PRN (12:56)
[2023-09-25] MEDS: MAGNESIUM SULFATE-D5W PMX 1 GM in DEXTROSE/WATER 1 100ML.BAG IVPB SCH (12:56)
[2023-09-25 15:55] LABS: Protein, Total 6.9 g/dL (6.2-8.2)
[2023-09-25] MEDS: MORPHINE SULFATE 4 MG/ML SYRINGE IV PRN (20:12)
--- NOTE | 2023-09-26 01:10 | P.CONS ---
History of Present Illness - Reason for Consult Consult date: 09/25/23 hypercalcemia, cancer hx Requesting physician: Abhishek Wise - Chief Complaint elevated calcium, weakness - History of Present Illness Mr. Dumas is a 47 year old gentleman with a PMHx significant for ADHD and HL who presents for evaluation of lymphadenopathy. He noted mass in the right shoulder and neck after showering on 04/15/2023. He denied any preceeding excess fatigue, fevers, chills, night sweats, anorexia, weight loss, or any other sites of lymphadenopathy. Due to the swelling in the right neck, he presented to [facility] for additional management. CBC noted neutrophilic leukocytosis and thrombocytosis with WBC 12.8 (ANC 10.2) and platelets 657. CMP had no acute abnormalities. CT neck and chest on 04/15/2023 lymphadenopathy in the right neck/shoulder with the largest measuring 4.3 x 3.2 cm. Right hilar and mediastinal lymphadenopathy along with gastrohepatic and retroperitoneal lymphadenopathy was also noted. Biopsy of right supraclavicular lymph node on 05/12/2023 noted atypical neoplasm. Consultation at the [facility] reported metastatic undifferentiated malignant epithelioid neoplasm, which was suspicious for melanoma based on cell morphology and prominent nucleoli. PET/CT on 06/04/2023 noted FDG avid lymphadenopathy in the left supraclavicular, mediastinal, and upper abdominal lymph nodes. Labs following initial visit revealed persistent neutrophilic leukocytosis and thrombocytosis with negative HIV, hepatitis panel, and no evidence of monoclonal gammopathy. Serum tryptase was normal. Guardant 360 circulating tumor DNA did reveal evidence of KIT [id number] mutation in addition to 2 KRAS and 2 NRAS mutations. Repeat biopsy of the right supraclavicular lymph node obtained on 07/07/2023 due to insufficient sample for cancer type ID from the original biopsy was positive for vimentin and CD117. Cancer type ID noted 96% probability of seminoma with a less than 5% probability of nonseminoma. NGS from the lymph node revealed KRAS mutation ([id number]) with RUSTAM, low TMB, and PD-L1 50%. Bone marrow biopsy on 07/24/2023 noted variable cellularity at 30 to 45% with myeloid and megakaryocyte hyperplasia and few at ypical megakaryocytes seen with no staining consistent with CD117 or tryptase. FISH and cytogenetics were normal with flow cytometry noted to have limited sample. 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 Further workup revealed elevated beta-hCG at 175 and LDH is 658 in addition to vitamin B12 and iron deficiency. He received his first dose of Feraheme and parenteral vitamin B12 on 09/07/2023. 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 Recommended proceeding with 3-4 cycles of BEP chemotherapy. Patient is scheduled to begin cycle 1 on 09/28/23. Patient presented to the emergency room for elevated calcium noted on outpatient lab testing. Patient is reporting increased generalized weakness and 2 episodes of n/v. Denies confusion, muscle cramping and constipation. On admission calcium was noted at 13.5. Ionized calcium 7.6. Patient was given 3 L normal saline bolus. Repeat calcium today 12.9. Zometa and calcitonin has been ordered by nephrology. WBC 12.9, hemoglobin 11.8, platelets 421,000. Patient also noted to be in acute kidney failure with creatinine 2.5, GFR 29. Review of Systems 10 point ROS is negative except as stated in the HPI Past Medical History Past Medical History: Cancer, Hyperlipidemia, Hypertension Additional Past Medical History / Comment(s): cervical and supraclavicular lymphadenopathy , constipated recently .recent tx for bronchitis. prod cough. abx and steroids.( pt states Dr Dickerson is aware) .still testing to confirm cancer . recent PET scan. left foot pain from prior injury playing basketball History of Any Multi-Drug Resistant Organisms: None Reported Past Surgical History: No Surgical Hx Reported Additional Past Surgical History / Comment(s): lymph node core biopsy right suprclavicular x2. - xanax pt states he was not asleep Past Anesthesia/Blood Transfusion Reactions: No Reported Reaction Additional Past Anesthesia/Blood Transfusion Reaction / Comm: no history tr ansfusions Past Psychological History: ADD/ADHD Smoking Status: Current every day smoker Past Alcohol Use History: None Reported Additional Past Alcohol Use History / Comment(s): smoking less when sick. 12-13 cigarettes Past Drug Use History: None Reported - Past Family History Father Family Medical History: Diabetes Mellitus Medications and Allergies Home Medications Medication Instructions Recorded Confirmed Type Dextroamphetamine/Amphetamine 30 mg PO TID PRN 04/30/23 09/24/23 History [Adderall] HYDROcodone/APAP 7.5-325MG [[place] 1 tab PO TID PRN 04/30/23 09/24/23 History 7.5-325] lisinopriL [Zestril] 10 mg PO DAILY 04/30/23 09/24/23 History Cholecalciferol (Vitamin D3) 1,250 mcg PO Q28D 09/24/23 09/24/23 History [Vitamin D3 (1250 Mcg = 50,000 Iu)] Cyanocobalamin [Vitamin B-12 1,000 mcg SQ TU 09/24/23 09/24/23 History Injection] OLANZapine [ZyPREXA] 2.5 - 5 mg PO DIRECTED 09/24/23 09/24/23 History ondansetron HCL [Zofran] 8 mg PO Q6H PRN 09/24/23 09/24/23 History Allergies Allergy/AdvReac Type Severity Reaction Status Date / Time rosuvastatin [From Crestor] AdvReac Nausea & Verified 09/24/23 16:16 Vomiting Physical Exam Vitals: Vital Signs Temp Pulse Pulse Resp BP BP Pulse Ox 09/25/23 09:16 97.8 F 66 16 161/85 96 09/25/23 04:00 80 16 163/92 97 09/24/23 23:07 97.7 F 72 16 182/94 97 09/24/23 21:30 67 18 150/91 98 09/24/23 21:17 69 18 182/110 99 09/24/23 20:45 75 19 175/116 98 09/24/23 19:30 73 21 146/87 97 09/24/23 18:30 71 17 163/97 97 09/24/23 18:05 97.9 F 73 18 167/105 98 09/24/23 17:02 71 20 165/111 97 09/24/23 16:14 98.3 F 73 17 167/113 100 09/24/23 15:15 97.7 F 75 17 166/106 97 09/24/23 14:21 98.0 F 88 20 163/94 98 Intake and Output 09/24/23 09/25/2324 22:59 06:59 14:59 Intake Total 540 118 Balance 540 118 Intake: Oral 540 118 Other: # Voids 1 Weight 102.965 kg - Constitutional General appearance: average body habitus, no acute distress - EENT Eyes: anicteric sclerae, EOMI ENT: hearing grossly normal - Neck approx 2-3 cm medial right supraclavicular LN Neck: lymphadenopathy - Respiratory Respiratory: bilateral: CTA - Cardiovascular Rhythm: regular Heart sounds: normal: S1, S2 - Gastrointestinal General gastrointestinal: soft, no tenderness - Integumentary Integumentary: no cyanotic, no jaundiced - Neurologic Neurologic: CNII-XII intact - Musculoskeletal Musculoskeletal: strength equal bilaterally - Psychiatric Psychiatric: A&O x's 3 Results CBC & Chem 7: 09/25/23 08:22 09/25/23 09:21 Labs: Abnormal Lab Results - Last 24 Hours (Table) 09/24/23 09/24/23 Range/Units 14:38 14:38 WBC 10.7 H (3.8-10.6) k/uL Hgb 12.7 L (13.0-17.5) gm/dL Hct 37.3 L (39.0-53.0) % RDW 16.2 H (11.5-15.5) % Neutrophils # 8.3 H (1.3-7.7) k/uL Lymphocytes # 0.7 L (1.0-4.8) k/uL Monocytes # 1.2 H (0-1.0) k/uL BUN 33 H (9-20) mg/dL Creatinine 2.49 H (0.66-1.25) mg/dL Calcium 13.5 H* (8.4-10.2) mg/dL Ionized Calcium Rohit 7.6 H* (4.5-5.3) mg/dL Magnesium 1.5 L (1.6-2.3) mg/dL Assessment and Plan (1) SHANEKA (acute kidney injury) Current Visit: Yes Status: Acute Priority: High Code(s): N17.9 - ACUTE KIDNEY FAILURE, UNSPECIFIED SNOMED Code(s): 74447890 (2) Hypercalcemia Current Visit: Yes Status: Acute Priority: High Code(s): E83.52 - HYPERCALCEMIA SNOMED Code(s): 86320773 (3) Seminoma Current Visit: Yes Status: Acute Priority: High Code(s): C62.90 - MALIG NEOPLASM OF UNSP TESTIS, UNSP DESCENDED OR UNDESCENDED SNOMED Code(s): 281028714 Plan: Hypercalcemia of malignancy: -Presented to the emergency room for elevated calcium noted on outpatient lab testing. Patient is reporting increased generalized weakness and 2 episodes of n/v -On admission calcium was noted at 13.5. Ionized calcium 7.6. Patient was given 3 L normal saline bolus. Repeat calcium today 12.9. Zometa and calcitonin has been ordered by nephrology. -Continue to monitor calcium levels daily SHANEKA: -Creatinine 2.5, GFR 29 -R/t hypercalcemia, and possibly left sided hydronephrosis noted on CT scan on 09/07/23. -Nephrology following Seminoma: -Full history in HPI -Extensive workup revealed seminoma, consistent with stage IIIB ([id number]) that is intermediate risk given LDH elevation of almost 3 times upper limit of normal -Recommended proceeding with 3-4 cycles of BEP chemotherapy. Patient is scheduled to begin cycle 1 on 09/28/23 -Pending course of hospitalization, and noted SHANEKA, may need to delay treatment due to nephrotoxicity of cisplatin Doctor attests: I performed a history and physical examination of this patient, developed impression and plan of care. Discussed with dictator. I agree with dictators note, documented as a scribe.
[2023-09-26 07:49] LABS: ALT 14 U/L (4-49); AST 28 U/L (17-59); African American GFR (CKD) 38 (>60 ml/min/1.73 sqM); Alkaline Phosphatase 145 U/L (38-126); Anion Gap 9 mmol/L; Blood Urea Nitrogen 24 mg/dL (9-20); Carbon Dioxide 23 mmol/L (22-30); Chloride 109 mmol/L (98-107); Glucose 98 mg/dL (74-99); Magnesium 1.7 mg/dL (1.6-2.3); Non-African American GFR(CKD) 33 (>60 ml/min/1.73 sqM); Potassium 3.7 mmol/L (3.5-5.1); Sodium 141 mmol/L (137-145); Total Bilirubin 0.8 mg/dL (0.2-1.3); Total Protein 7.2 g/dL (6.3-8.2)
[2023-09-26] MEDS: LORazepam 1 MG TAB PO PRN (10:08)
--- NOTE | 2023-09-26 10:14 | P.PN ---
Subjective Patient is seen in follow-up for acute kidney injury and hypercalcemia. Renal function slightly better. On IV fluids. Calcium level trending down. No active complaints. Vital signs are stable. General: No acute distress. HEENT: Head exam is unremarkable. LUNGS: No audible rhonchi or wheezes. HEART: Rate and Rhythm are regular. ABDOMEN: Nontender. EXTREMITITES: No edema. Objective - Vital Signs Vital signs: Vital Signs Temp 98.0 F 09/26/23 07:48 Pulse 103 H 09/26/23 08:00 Resp 16 09/26/23 08:00 BP 168/90 09/26/23 07:48 Pulse Ox 95 09/26/23 07:48 FiO2 Intake & Output 09/25/23 09/26/23 09/26/23 18:59 06:59 18:59 Intake Total 118 1080 Balance 118 1080 Intake: Oral 118 1080 Other: Voiding Method Toilet # Voids 1 - Labs CBC & Chem 7: 09/25/23 08:22 09/26/23 07:13 Labs: Abnormal Lab Results - Last 24 Hours (Table) 09/25/23 09/25/23 09/25/23 Range/Units 09:21 12:22 12:22 Chloride 108 H (98-107) mmol/L BUN 28 H (9-20) mg/dL Creatinine 2.50 H (0.66-1.25) mg/dL Calcium 12.9 H (8.4-10.2) mg/dL Magnesium 1.5 L (1.6-2.3) mg/dL Alkaline Phosphatase 132 H (38-126) U/L Vitamin D 25-Hydroxy 24.3 L (30.0-100.0) ng/mL PTH Intact 10.3 L (14.0-72.0) pg/mL 09/26/23 Range/Units 07:13 Chloride 109 H (98-107) mmol/L BUN 24 H (9-20) mg/dL Creatinine 2.26 H (0.66-1.25) mg/dL Calcium 12.0 H (8.4-10.2) mg/dL Magnesium (1.6-2.3) mg/dL Alkaline Phosphatase 145 H (38-126) U/L Vitamin D 25-Hydroxy (30.0-100.0) ng/mL PTH Intact (14.0-72.0) pg/mL Assessment and Plan Plan: Assessment: 1. Acute kidney injury secondary to ATN secondary to hypercalcemia. Also concern for obstructive uropathy with recent CAT scan showing left-sided hydronephrosis. Renal function better. Creatinine 2.26.. Creatinine 1.2 dated September 09, 2023. 2. Hypercalcemia of malignancy further worsen with the use of Tums and vitamin D supplementation. Status post calcitonin and Zometa given September 25, 2023. PTH appropriately suppressed at 10.3. Vitamin D level 24.3. 3. Left-sided hydronephrosis. Urology consulted. 4. Recently diagnosed seminoma with significant adenopathy noted on CAT scan. Oncology following. 5. Hypomagnesemia from poor intake. Replaced. Better. 6. Benign hypertension. Plan: Maintain IV fluids. Avoid nephrotoxins. Continue to avoid calcium and vitamin D supplementation at this time. Follow-up urinalysis. Follow-up pending workup for hypercalcemia. Add oral magnesium oxide. Add amlodipine 5 mg once daily. Maintain as needed hydralazine.
--- NOTE | 2023-09-26 11:41 | P.GSCN ---
History of Present Illness Consult date: 09/26/23 Reason for Consult: Left hydronephrosis History of present illness: This is a 48-year-old male admitted to the hospital with hypercalcemia secondary to malignancy. He is recently diagnosed with metastatic seminoma with plan to start chemotherapy on Thursday. He was admitted to the hospital due to significant hypercalcemia with acute kidney injury. His creatinine on presentation was 2.5 from a baseline of 1.2. He did have a CT abdomen pelvis on September 06 which showed evidence of left hydronephrosis, with significant retroperitoneal lymphadenopathy compressing the ureter. He is having diffuse abdominal pain but denies any focal left flank pain. Denies any voiding dysfunction or gross hematuria. No previous history of kidney stones or any previous renal surgeries. His creatinine is slowly trending down to 2.29 from a 2.5. Review of Systems - Constitutional Reports weakness, Denies chills, Denies fever - EENT Ears, nose, mouth and throat: Denies dysphagia - Cardiovascular Denies chest pain, Denies shortness of breath - Respiratory Denies cough, Denies 7 - Gastrointestinal Reports abdominal pain, Denies nausea, Denies vomiting - Genitourinary Denies dysuria, Denies flank pain, Denies hematuria Past Medical History Past Medical History: Cancer, Hyperlipidemia, Hypertension Additional Past Medical History / Comment(s): cervical and supraclavicular lymphadenopathy , constipated recently .recent tx for bronchitis. prod cough. abx and steroids.( pt states Dr Dickerson is aware) .still testing to confirm cancer . recent PET scan. left foot pain from prior injury playing basketball History of Any Multi-Drug Resistant Organisms: None Reported Past Surgical History: No Surgical Hx Reported Additional Past Surgical History / Comment(s): lymph node core biopsy right suprclavicular x2. - xanax pt states he was not asleep Past Anesthesia/Blood Transfusion Reactions: No Reported Reaction Additional Past Anesthesia/Blood Transfusion Reaction / Comm: no history transfusions Past Psychological History: ADD/ADHD Smoking Status: Current every day smoker Past Alcohol Use History: None Reported Additional Past Alcohol Use History / Comment(s): smoking less when sick. 12-13 cigarettes Past Drug Use History: None Reported - Past Family History Father Family Medical History: Diabetes Mellitus Medications and Allergies Home Medications Medication Instructions Recorded Confirmed Type Dextroamphetamine/Amphetamine 30 mg PO TID PRN 04/30/23 09/24/23 History [Adderall] HYDROcodone/APAP 7.5-325MG [[place] 1 tab PO TID PRN 04/30/23 09/24/23 History 7.5-325] lisinopriL [Zestril] 10 mg PO DAILY 04/30/23 09/24/23 History Cholecalciferol (Vitamin D3) 1,250 mcg PO Q28D 09/24/23 09/24/23 History [Vitamin D3 (1250 Mcg = 50,000 Iu)] Cyanocobalamin [Vitamin B-12 1,000 mcg SQ TU 09/24/23 09/24/23 History Injection] OLANZapine [ZyPREXA] 2.5 - 5 mg PO DIRECTED 09/24/23 09/24/23 History ondansetron HCL [Zofran] 8 mg PO Q6H PRN 09/24/23 09/24/23 History Allergies Allergy/AdvReac Type Severity Reaction Status Date / Time rosuvastatin [From Crestor] AdvReac Nausea & Verified 09/24/23 16:16 Vomiting Surgical - Exam Vital Signs Temp Pulse Resp BP Pulse Ox 98.0 F 88 20 163/94 98 09/24/23 14:21 09/24/23 14:21 09/24/23 14:21 09/24/23 14:21 09/24/23 14:21 - General no distress, no pain - Eyes normal ocular movement, no pale - ENT normal nares, normal mucosa - Respiratory normal expansion, normal respiratory effort - Abdomen Abdomen: soft, non tender, no distended - Psychiatric oriented to time, oriented to person, oriented to place Results - Labs 09/25/23 08:22 09/26/23 07:13 Abnormal Lab Results - Last 24 Hours (Table) 09/25/23 09/25/23 09/26/23 Range/Units 12:22 12:22 07:13 Chloride 109 H (98-107) mmol/L BUN 24 H (9-20) mg/dL Creatinine 2.26 H (0.66-1.25) mg/dL Calcium 12.0 H (8.4-10.2) mg/dL Alkaline Phosphatase 145 H (38-126) U/L Vitamin D 25-Hydroxy 24.3 L (30.0-100.0) ng/mL PTH Intact 10.3 L (14.0-72.0) pg/mL Diabetes panel 09/26/23 Range/Units 07:13 Sodium 141 (137-145) mmol/L Potassium 3.7 (3.5-5.1) mmol/L Chloride 109 H (98-107) mmol/L Carbon Dioxide 23 (22-30) mmol/L BUN 24 H (9-20) mg/dL Creatinine 2.26 H (0.66-1.25) mg/dL Glucose 98 (74-99) mg/dL Calcium 12.0 H (8.4-10.2) mg/dL AST 28 (17-59) U/L ALT 14 (4-49) U/L Alkaline Phosphatase 145 H (38-126) U/L Total Protein 7.2 (6.3-8.2) g/dL Albumin 4.0 (3.5-5.0) g/dL Calcium panel 09/26/23 Range/Units 07:13 Calcium 12.0 H (8.4-10.2) mg/dL Albumin 4.0 (3.5-5.0) g/dL Pituitary panel 09/26/23 Range/Units 07:13 Sodium 141 (137-145) mmol/L Potassium 3.7 (3.5-5.1) mmol/L Chloride 109 H (98-107) mmol/L Carbon Dioxide 23 (22-30) mmol/L BUN 24 H (9-20) mg/dL Creatinine 2.26 H (0.66-1.25) mg/dL Glucose 98 (74-99) mg/dL Calcium 12.0 H (8.4-10.2) mg/dL Adrenal panel 09/26/23 Range/Units 07:13 Sodium 141 (137-145) mmol/L Potassium 3.7 (3.5-5.1) mmol/L Chloride 109 H (98-107) mmol/L Carbon Dioxide 23 (22-30) mmol/L BUN 24 H (9-20) mg/dL Creatinine 2.26 H (0.66-1.25) mg/dL Glucose 98 (74-99) mg/dL Calcium 12.0 H (8.4-10.2) mg/dL Total Bilirubin 0.8 (0.2-1.3) mg/dL AST 28 (17-59) U/L ALT 14 (4-49) U/L Alkaline Phosphatase 145 H (38-126) U/L Total Protein 7.2 (6.3-8.2) g/dL Albumin 4.0 (3.5-5.0) g/dL Assessment and Plan Assessment: 48-year-old male with metastatic seminoma, admitted to the hospital with acute kidney injury secondary to hypercalcemia. Had a CT from September 06 showing evidence of left-sided hydronephrosis secondary to retroperitoneal lymphadenopathy. Acute kidney injury is likely secondary to his hypercalcemia, there is a potential component of obstructive uropathy secondary to hydrone phrosis. Discussed with him his hydronephrosis is secondary to the retroperitoneal lymphadenopathy, if there is regression of his lymphadenopathy with chemotherapy the hydronephrosis would resolve, at this point we will continue to trend his creatinine, if no further improvement of kidney function despite addressing the hypercalcemia then he might require a stent, otherwise we will monitor progression of his renal function as he continues with his chemotherapy.
[2023-09-26] MEDS: amLODIPine 5 MG TAB PO SCH (15:21)
[2023-09-26] MEDS: MAGNESIUM OXIDE 400 MG TAB PO SCH (15:21)
--- NOTE | 2023-09-26 16:43 | HP ---
HISTORY AND PHYSICAL CHIEF COMPLAINT: Hypercalcemia and lower abdominal discomfort. HISTORY OF PRESENT ILLNESS: This is the first known admission for this 48-year-old white male. He is healthy up until several months ago when he presented with a mass in his neck and after extensive workup, he has been found to likely have a metastatic seminoma. He has recently been seeing Oncology and wished to be started on chemotherapy next week. Laboratory studies revealed a high calcium and he was told to come to the hospital. He had no nausea, vomiting, muscle cramps, etc. He is having quite a bit of lower abdominal discomfort. REVIEW OF SYSTEMS: He has otherwise not had any symptoms. Past medical history, family history, personal and social histories are essentially unremarkable otherwise. He is weak. He does not have what he would describe is bone pain. Calcium was 14. PHYSICAL EXAMINATION: VITAL SIGNS: Normal. HEAD, EARS, EYES, NOSE, MOUTH, AND THROAT: Normal. NECK: Veins not distended. CHEST: Clear. CARDIAC: Normal. ABDOMEN: Slightly tender and distended particularly in the lower half and there is no definite masses or tenderness. Bowel sounds are present. EXTREMITIES: Normal. IMPRESSION: 1. Hypercalcemia. 2. Lower abdominal discomfort. 3. Probable metastatic seminoma. PLAN: 1. Bedrest. 2. IV fluids. 3. Correct hypercalcemia. 4. Consult with Oncology. MMPHANL / IJN: [id number] /
[2023-09-26 18:41] LABS: Appearance,Urine Clear (Clear); Bilirubin,Urine Negative (Negative); Blood,Urine Negative (Negative); Color,Urine Colorless; Glucose,Urine (UA) Negative (Negative); Ketones,Urine Negative (Negative); Leukocyte Esterase,Urine Negative (Negative); Nitrite,Urine Negative (Negative); Protein,Urine Negative (Negative); Specific Gravity,Urine 1.006 (1.001-1.035); Urobilinogen,Urine <2.0 mg/dL (<2.0)
[2023-09-26] MEDS: ZOLPIDEM 5 MG TAB PO PRN (20:34)
--- NOTE | 2023-09-27 03:48 | PN ---
PROGRESS NOTE DATE OF SERVICE: 09/26/2023 CHIEF COMPLAINT: Metastatic testicular carcinoma. HISTORY OF PRESENT ILLNESS: This gentleman is a little bit more comfortable, although he still has quite a bit of lower abdominal discomfort. PHYSICAL EXAMINATION: VITAL SIGNS: Normal. CHEST: Clear. CARDIAC: Normal. ABDOMEN: Protuberant and he is somewhat tender in both lower quadrants. 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 PLAN: Continue him to keep comfortable as possible and to allow him to rest. MMODL / IJN: [id number] /
--- NOTE | 2023-09-27 08:59 | PN ---
PROGRESS NOTE DATE OF SERVICE: 09/25/2023 CHIEF COMPLAINT: Hypercalcemia. HISTORY OF PRESENT ILLNESS: This gentleman is having some difficulty, just feeling comfortable. He is having a lot of discomfort in the lower abdomen and back, which is probably a reflection of retroperitoneal adenopathy and ureteral obstruction on the left. LABORATORY DATA: BUN was elevated slightly at 28 and creatinine is at 2.5. PHYSICAL EXAMINATION: VITAL SIGNS: Blood pressure is elevated 167/92. CHEST: Clear. CARDIAC: Normal. ABDOMEN: Somewhat distended and has a full feeling in the lower quadrants. It was slight mild tenderness. IMPRESSION: 1. Hypercalcemia. 2. Metastatic seminoma. 3. Hypertension. 4. Acute kidney injury. PLAN: for comfort. MMODL / IJN: [id number] /
[2023-09-27 09:02] LABS: ALT 11 U/L (4-49); AST 25 U/L (17-59); African American GFR (CKD) 35 (>60 ml/min/1.73 sqM); Albumin 3.5 g/dL (3.5-5.0); Alkaline Phosphatase 124 U/L (38-126); Anion Gap 7 mmol/L; Blood Urea Nitrogen 21 mg/dL (9-20); Calcium 10.5 mg/dL (8.4-10.2); Carbon Dioxide 21 mmol/L (22-30); Chloride 108 mmol/L (98-107); Glucose 86 mg/dL (74-99); Magnesium 1.5 mg/dL (1.6-2.3); Non-African American GFR(CKD) 31 (>60 ml/min/1.73 sqM); Potassium 3.6 mmol/L (3.5-5.1); Sodium 136 mmol/L (137-145); Total Bilirubin 0.7 mg/dL (0.2-1.3); Total Protein 6.7 g/dL (6.3-8.2)
--- NOTE | 2023-09-27 10:05 | P.PN ---
Subjective Patient is seen in follow-up for acute kidney injury and hypercalcemia. Renal function fairly stable. On IV fluids. Calcium level trending down. No active complaints. Vital signs are stable. General: No acute distress. HEENT: Head exam is unremarkable. LUNGS: No audible rhonchi or wheezes. HEART: Rate and Rhythm are regular. ABDOMEN: Nontender. EXTREMITITES: No edema. Objective - Vital Signs Vital signs: Vital Signs Temp 97.5 F L 09/27/23 08:30 Pulse 83 09/27/23 08:34 Resp 16 09/27/23 08:34 BP 156/79 09/27/23 08:30 Pulse Ox 96 09/27/23 08:30 FiO2 Intake & Output 09/26/23 09/27/23 09/27/23 18:59 06:59 18:59 Intake Total 540 Balance 540 Intake: Oral 540 Other: Voiding Method Toilet Toilet Toilet # Voids 5 3 - Labs CBC & Chem 7: 09/25/23 08:22 09/27/23 08:23 Labs: Abnormal Lab Results - Last 24 Hours (Table) 09/27/23 Range/Units 08:23 Sodium 136 L (137-145) mmol/L Chloride 108 H (98-107) mmol/L Carbon Dioxide 21 L (22-30) mmol/L BUN 21 H (9-20) mg/dL Creatinine 2.42 H (0.66-1.25) mg/dL Calcium 10.5 H (8.4-10.2) mg/dL Magnesium 1.5 L (1.6-2.3) mg/dL Assessment and Plan Plan: Assessment: 1. Acute kidney injury secondary to ATN secondary to hypercalcemia. Also concern for obstructive uropathy with recent CAT scan showing left-sided hydronephrosis. Renal function fairly stable this admission. Creatinine 2.42 today. Creatinine 1.2 dated September 09, 2023. UA benign. 2. Hypercalcemia of malignancy further worsen with the use of Tums and vitamin D supplementation. Status post calcitonin and Zometa given September 25, 2023. PTH appropriately suppressed at 10.3. Vitamin D level 24.3. 3. Left-sided hydronephrosis. Urology following. 4. Recently diagnosed seminoma with significant adenopathy noted on CAT scan. Oncology following. 5. Hypomagnesemia from poor intake. Replaced. On oral magnesium oxide. 6. Benign hypertension. Plan: Maintain IV fluids. Avoid nephrotoxins. Continue to avoid calcium and vitamin D supplementation at this time. Follow-up pending workup for hypercalcemia. 2 g IV magnesium sulfate today. Maintain as needed hydralazine. Replace potassium.
[2023-09-27] MEDS: POTASSIUM CHLORIDE ER 20 MEQ TAB.ER PO STA (11:03)
[2023-09-27] MEDS: MAGNESIUM SULFATE-D5W PMX 1 GM in DEXTROSE/WATER 1 100ML.BAG IVPB SCH (11:03)
--- NOTE | 2023-09-27 13:44 | P.PN ---
Subjective Progress Note Date: 09/27/23 Creatinine did increase to 2.4 from 2.2 this morning. Denies any flank pain. Denies any gross hematuria or voiding difficulties Objective - Vital Signs Vital signs: Vital Signs Temp 97.5 F L 09/27/23 08:30 Pulse 89 09/27/23 11:09 Resp 16 09/27/23 11:09 BP 134/80 09/27/23 11:09 Pulse Ox 95 09/27/23 11:09 FiO2 Intake & Output 09/26/23 09/27/23 09/27/23 18:59 06:59 18:59 Intake Total 540 Balance 540 Intake: Oral 540 Other: Voiding Method Toilet Toilet Toilet # Voids 5 3 2 - Constitutional General appearance: Present: no acute distress - Gastrointestinal General gastrointestinal: Present: soft. 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 Had a CT from September 06 showing evidence of left-sided hydronephrosis secondary to retroperitoneal lymphaden opathy. Hypercalcemia is improving, he did have worsening of kidney function this morning creatinine is up to 2.4 from 2.2. Of note creatinine was 1.4, 2 weeks ago. Discussed with him given the worsening renal function and the plan to start cisplatin based chemotherapy for his seminoma I do recommend proceeding with stent insertion today. Discussed he was set up for plan to proceed with stent insertion today, but he is refusing to proceed with stent insertion. Discussed with him I highly recommend proceeding with that to preserve his renal function, discussed would be difficult to start cisplatin based chemotherapy without optimizing his renal function. At this time he would like to discuss this with his extended family as they are considering transfer to [facility] for further care rather than continuing care and here. He indicated he would like to discuss this with his family further and inform us if he would like to proceed with stent tomorrow -Keep n.p.o. past midnight, will tentatively put on the schedule for cystoscopy and left stent insertion if he is agreeable tomorrow
--- NOTE | 2023-09-28 04:01 | PN ---
PROGRESS NOTE CHIEF COMPLAINT: Hypercalcemia and metastatic CA of the testicle. HISTORY OF PRESENT ILLNESS: This gentleman is doing a little bit better. He is resting more easily. He is not having a lot of discomfort. Calcium is down to normal. PHYSICAL EXAMINATION: CHEST: Clear. CARDIAC: Normal. ABDOMEN: Remains slightly distended. IMPRESSION: 1. Hypercalcemia. 2. Metastatic carcinoma of the testicle. 3. CKD with ureteral obstruction from retroperitoneal adenopathy. PLAN: 1. He could probably go home when and if he is cleared by Nephrology and Oncology. MMODL / IJN: [id number] /
--- NOTE | 2023-09-28 10:13 | P.PN ---
Subjective Patient is seen in follow-up for acute kidney injury and hypercalcemia. Renal function fairly stable as of yesterday. On IV fluids. Calcium level trending down. No active complaints. Vital signs are stable. General: No acute distress. HEENT: Head exam is unremarkable. LUNGS: No audible rhonchi or wheezes. HEART: Rate and Rhythm are regular. ABDOMEN: Nontender. EXTREMITITES: No edema. Objective - Vital Signs Vital signs: Vital Signs Temp 98.2 F 09/27/23 20:00 Pulse 81 09/28/23 03:45 Resp 16 09/28/23 03:45 BP 137/73 09/28/23 03:45 Pulse Ox 95 09/28/23 03:45 FiO2 Intake & Output 09/27/23 09/28/23 09/28/23 18:59 06:59 18:59 Intake Total 236 540 Balance 236 540 Intake: Oral 236 540 Other: Voiding Method Toilet Toilet # Voids 2 1 - Labs CBC & Chem 7: 09/25/23 08:22 09/27/23 08:23 Assessment and Plan Plan: Assessment: 1. Acute kidney injury secondary to ATN secondary to hypercalcemia. Also concern for obstructive uropathy with recent CAT scan showing left-sided hydronephrosis. Renal function fairly stable this admission. Creatinine 2.42 yesterday. Creatinine 1.2 dated September 09, 2023. UA benign. 2. Hypercalcemia of malignancy further worsen with the use of Tums and vitamin D supplementation. Status post calcitonin and Zometa given September 25, 2023. PTH appropriately suppressed at 10.3. Vitamin D level 24.3. 3. Left-sided hydronephrosis. Urology following. 4. Recently diagnosed seminoma with significant adenopathy noted on CAT scan. Oncology following. 5. Hypomagnesemia from poor intake. Replaced. On oral magnesium oxide. 6. Benign hypertension. Stable. Plan: Maintain IV fluids. Decrease rate to 75 cc an hour. Avoid nephrotoxins. Continue to avoid calcium and vitamin D supplementation at this time. Follow-up pending workup for hypercalcemia. Maintain as needed hydralazine. Cystoscopy with left ureteral stent placement today.
[2023-09-28 10:42] LABS: African American GFR (CKD) 38 (>60 ml/min/1.73 sqM); Anion Gap 9 mmol/L; Blood Urea Nitrogen 21 mg/dL (9-20); Calcium 9.9 mg/dL (8.4-10.2); Carbon Dioxide 20 mmol/L (22-30); Chloride 112 mmol/L (98-107); Glucose 75 mg/dL (74-99); Non-African American GFR(CKD) 33 (>60 ml/min/1.73 sqM); Potassium 3.9 mmol/L (3.5-5.1); Sodium 141 mmol/L (137-145)
[2023-09-28 11:13] LABS: Angiotensin-1 Converting Enz. 4 U/L (8-52)
[2023-09-28] MEDS: LACTATED RINGERS 1,000 ML IV SCH (13:43)
[2023-09-28] MEDS: ONDANSETRON 4 MG/2 ML VIAL IVP ONE ×2 (13:51→15:51)
[2023-09-28] MEDS ORDERED: LIDOCAINE 1% INJ 10MG/ML (20 ML MDV) ONE (14:10)
[2023-09-28] MEDS ORDERED: fentaNYL (PF) 50 MCG/ML 2 ML AMP ONE (14:10)
[2023-09-28] MEDS ORDERED: PROPOFOL 10 MG/ML 20 ML VIAL IV ONE (14:10)
[2023-09-28] MEDS ORDERED: KETAMINE HCL IN 0.9 % NACL 50 MG/5 ML SYRINGE ONE (14:10)
[2023-09-28] MEDS ORDERED: GLYCOPYRROLATE 0.2 MG/ML 2 ML VIAL ONE (14:10)
[2023-09-28] MEDS ORDERED: MIDAZOLAM 2 MG/2 ML VIAL ONE (14:10)
[2023-09-28] MEDS: SODIUM CHLORIDE 0.9% 50 ML with ceFAZolin 2,000 MG IV ONE (14:30)
[2023-09-28] MEDS: IOPAMIDOL-370 50ML BTL INJ ONE (14:36)
--- NOTE | 2023-09-28 14:48 | P.PN ---
Subjective Progress Note Date: 09/28/23 At today's visit patient is reporting fatigue. Patient is scheduled for cystoscopy today for left urethral stent placement. Calcium has improved, 9.9 today. Mild improvement in kidney function with creatinine 2.28, GFR 33. Objective - Vital Signs Vital signs: Vital Signs Temp 97.7 F 09/28/23 08:10 Pulse 85 09/28/23 08:10 Resp 16 09/28/23 08:10 BP 143/78 09/28/23 08:10 Pulse Ox 96 09/28/23 08:10 FiO2 Intake & Output 09/27/23 09/28/23 09/28/23 18:59 06:59 18:59 Intake Total 236 540 Balance 236 540 Intake: Oral 236 540 Other: Voiding Method Toilet Toilet # Voids 2 1 1 - Constitutional General appearance: Present: no acute distress - EENT Eyes: Present: anicteric sclerae, EOMI ENT: Present: hearing grossly normal - Respiratory Details: breathing is even and unlabored - Cardiovascular Details: skin warm and dry - Gastrointestinal General gastrointestinal: Present: soft. Absent: tenderness - Integumentary Integumentary: Absent: cyanotic - Neurologic Neurologic: Present: CNII-XII intact - Musculoskeletal Musculoskeletal: Present: strength equal bilaterally - Psychiatric Psychiatric: Present: A&O x's 3 - Labs CBC & Chem 7: 09/25/23 08:22 09/28/23 09:19 Labs: Abnormal Lab Results - Last 24 Hours (Table) 09/25/23 09/28/23 Range/Units 12:22 09:19 Chloride 112 H (98-107) mmol/L Carbon Dioxide 20 L (22-30) mmol/L BUN 21 H (9-20) mg/dL Creatinine 2.28 H (0.66-1.25) mg/dL Angiotensin Convert Enz 4 L (8-52) U/L Assessment and Plan (1) SHANEKA (acute kidney injury) Current Visit: Yes Status: Acute Priority: High Code(s): N17.9 - ACUTE KIDNEY FAILURE, UNSPECIFIED SNOMED Code(s): 83867062 (2) Hypercalcemia Current Visit: Yes Status: Acute Priority: High Code(s): E83.52 - H YPERCALCEMIA SNOMED Code(s): 50884835 (3) Seminoma Current Visit: Yes Status: Acute Priority: High Code(s): C62.90 - MALIG NEOPLASM OF UNSP TESTIS, UNSP DESCENDED OR UNDESCENDED SNOMED Code(s): 755508000 Plan: Hypercalcemia of malignancy: -Presented to the emergency room for elevated calcium noted on outpatient lab testing. Patient is reporting increased generalized weakness and 2 episodes of n/v -On admission calcium was noted at 13.5. Ionized calcium 7.6. Patient was given 3 L normal saline bolus. Repeat calcium 12.9. Zometa and calcitonin has been given -Calcium now normal at 9.9 -Continue to monitor calcium levels SHANEKA: -Kidney functioning showing mild improvement. Creatinine 2.28, GFR 33 -R/t hypercalcemia, and possibly left sided hydronephrosis noted on CT scan on 09/07/23. Scheduled for cystoscopy and stent placement today -Nephrology following Seminoma: -Full history in HPI -Extensive workup revealed seminoma, consistent with stage IIIB ([id number]) that is intermediate risk given LDH elevation of almost 3 times upper limit of normal -Recommended proceeding with 3-4 cycles of BEP chemotherapy. Patient was scheduled to begin cycle 1 on 09/28/23 -Treatment will currently be on hold, until pt has acutely recovered and kidney function improves, due to nephrotoxicity of cisplatin. Will continue to follow course of hospitalization and schedule clinic f/u upon discharge
--- NOTE | 2023-09-28 15:14 | FL ---
EXAMINATION TYPE: FL urography retrograde DATE OF EXAM: 09/28/2023 COMPARISON: NONE HISTORY: Fluoroscopy time. Fluoroscopy was provided to the referring clinician.
[2023-09-28] MEDS: DEXAMETHASONE SOD PHOSPHATE 4 MG/ML 1 ML VIAL IV ONE (15:51)
[2023-09-28 17:27] LABS: Albumin 3.71 g/dL (3.80-4.90); Gamma Globulin 1.21 g/dL (0.70-1.50)
[2023-09-28 21:57] LABS: Vitamin D, 1, 25-Dihydroxy 95 pg/mL (20 - 79)
[2023-09-29] MEDS ORDERED: HYDROmorphone 0.5 MG/0.5 ML SYRINGE IVP PRN (07:00)
[2023-09-29 07:35] LABS: ALT 12 U/L (4-49); AST 22 U/L (17-59); African American GFR (CKD) 50 (>60 ml/min/1.73 sqM); Albumin 3.6 g/dL (3.5-5.0); Alkaline Phosphatase 132 U/L (38-126); Anion Gap 7 mmol/L; Blood Urea Nitrogen 26 mg/dL (9-20); Calcium 8.9 mg/dL (8.4-10.2); Carbon Dioxide 20 mmol/L (22-30); Chloride 111 mmol/L (98-107); Glucose 100 mg/dL (74-99); Magnesium 1.9 mg/dL (1.6-2.3); Non-African American GFR(CKD) 43 (>60 ml/min/1.73 sqM); Sodium 138 mmol/L (137-145); Total Bilirubin 0.3 mg/dL (0.2-1.3); Total Protein 6.7 g/dL (6.3-8.2)
[2023-09-29 07:57] LABS: Potassium 4.1 mmol/L (3.5-5.1)
[2023-09-29] MEDS: LIDOCAINE 1% INJ 10MG/ML (20 ML MDV) SQ ONE (07:58)
--- NOTE | 2023-09-29 08:06 | P.PCN ---
Date of Procedure: 09/29/23 Preoperative Diagnosis: Testicular cancer, need for IV access for chemotherapy Postoperative Diagnosis: Same Procedure(s) Performed: Left upper extremity basilic vein PICC placement under ultrasound and fluoroscopic guidance Anesthesia: local Surgeon: Alek Vincent Estimated Blood Loss (ml): 5 Pathology: none sent Condition: stable Disposition: floor Description of Procedure: After written and informed consent was obtained the patient and all risks, benefits and competitions were described the patient was brought to the [employer] and laid in a supine position with his right arm outstretched on an armboard. The area of the right arm was prepped and draped in usual sterile fashion. Timeout was performed in normal fashion. Utilizing ultrasound the basilic vein was visualized and shown to be compressible without any visible thrombus. Under ultrasound guidance the basilic vein was then cannulated with a micropuncture needle and wire was placed under direct visualization of fluoroscopy. Introducer sheath was then placed. The catheter was measured and cut to the ap propriate length which was 44 cm. The catheter was then guided through the breakaway sheath and the sheath was removed with good positioning was visualized under fluoroscopy. The catheter was pulled and flushed easily. It was then secured in place in normal fashion. Patient tolerated the procedure well was sent back to his room for recovery.
--- NOTE | 2023-09-29 08:46 | IR ---
EXAMINATION TYPE: IR cvc insert >=5 years DATE OF EXAM: 09/29/2023 COMPARISON: NONE HISTORY: Fluoroscopy time. Fluoroscopy was provided to the referring clinician.
--- NOTE | 2023-09-29 10:22 | P.PN ---
Subjective Patient is seen in follow-up for acute kidney injury and hypercalcemia. Renal function improving. On IV fluids. Calcium level now normal. Admits to good urine output. No active complaints. Vital signs are stable. General: No acute distress. HEENT: Head exam is unremarkable. LUNGS: No audible rhonchi or wheezes. HEART: Rate and Rhythm are regular. ABDOMEN: Nontender. EXTREMITITES: No edema. Objective - Vital Signs Vital signs: Vital Signs Temp 97.6 F 09/29/23 04:00 Pulse 87 09/29/23 04:00 Resp 16 09/29/23 04:00 BP 117/65 09/29/23 04:00 Pulse Ox 94 L 09/29/23 04:00 FiO2 Intake & Output 09/28/23 09/29/23 09/29/23 18:59 06:59 18:59 Intake Total 350 0 Output Total 0 Balance 350 0 Intake: IV 350 Oral 0 Output: Estimated Blood Loss 0 Other: Voiding Method Toilet Toilet # Voids 1 2 - Labs CBC & Chem 7: 09/25/23 08:22 09/29/23 06:54 Labs: Abnormal Lab Results - Last 24 Hours (Table) 09/25/23 09/25/23 09/28/23 Range/Units 12:22 12:22 09:19 Chloride 112 H (98-107) mmol/L Carbon Dioxide 20 L (22-30) mmol/L BUN 21 H (9-20) mg/dL Creatinine 2.28 H (0.66-1.25) mg/dL Glucose (74-99) mg/dL Alkaline Phosphatase (38-126) U/L Albumin (PEP) 3.71 L (3.80-4.90) g/dL Angiotensin Convert Enz 4 L (8-52) U/L Vit D 1,25-Dihydroxy 95 H (20 - 79) pg/mL 09/29/23 Range/Units 06:54 Chloride 111 H (98-107) mmol/L Carbon Dioxide 20 L (22-30) mmol/L BUN 26 H (9-20) mg/dL Creatinine 1.81 H (0.66-1.25) mg/dL Glucose 100 H (74-99) mg/dL Alkaline Phosphatase 132 H (38-126) U/L Albumin (PEP) (3.80-4.90) g/dL Angiotensin Convert Enz (8-52) U/L Vit D 1,25-Dihydroxy (20 - 79) pg/mL Assessment and Plan Plan: Assessment: 1. Acute kidney injury secondary to ATN secondary to hypercalcemia. Also concern for obstructive uropathy with recent CAT scan showing left-sided hydronephrosis. Renal function improving - creatinine 1.81 today. Creatinine 1.2 dated September 09, 2023. UA benign. 2. Hypercalcemia of malignancy further worsen with the use of Tums and vitamin D supplementation. Status post calcitonin and Zometa given September 25, 2023. PTH appropriately suppressed at 10.3. Vitamin D level 24.3. SARAI level 4. Calcitriol level elevated at 95. No monoclonality noted on immunofixation. 3. Left-sided hydronephrosis. Urology following. Status post ureteral stent placement this admission. 4. Recently diagnosed seminoma with significant adenopathy noted on CAT scan. Oncology following. 5. Hypomagnesemia from poor intake. Replaced. On oral magnesium oxide. 6. Benign hypertension. Stable. Plan: Hep-Lock IV fluids. Encouraged oral intake. Avoid nephrotoxins. Consult pulmonology due to elevated calcitriol level/hypercalcemia.
[2023-09-29 10:38] VITALS: RESP 17
[2023-09-29 11:24] VITALS: PULSE 80
--- NOTE | 2023-09-29 12:47 | P.PN ---
Subjective Progress Note Date: 09/29/23 Principal diagnosis: Left hydronephrosis Patient is a 48-year-old white male with left hydronephrosis due to retroperitoneal adenopathy. He underwent cystoscopy with left ureteral stent insertion in September 28, 2023. He has no complaints, and states that the dysuria he experienced postoperatively has essentially resolved. Objective - Vital Signs Vital signs: Vital Signs Temp 97.6 F 09/29/23 04:00 Pulse 87 09/29/23 04:00 Resp 16 09/29/23 04:00 BP 117/65 09/29/23 04:00 Pulse Ox 94 L 09/29/23 04:00 FiO2 Intake & Output 09/28/23 09/28/23 09/29/23 06:59 18:59 06:59 Intake Total 540 350 Output Total 0 Balance 540 350 Intake: IV 350 Oral 540 Output: Estimated Blood Loss 0 Other: Voiding Method Toilet Toilet Toilet # Voids 1 1 1 - Constitutional General appearance: Present: average body habitus, cooperative - Psychiatric Psychiatric: Present: A&O x's 3 - Labs CBC & Chem 7: 09/25/23 08:22 09/29/23 06:54 Labs: Abnormal Lab Results - Last 24 Hours (Table) 09/25/23 09/25/23 09/28/23 Range/Units 12:22 12:22 09:19 Chloride 112 H (98-107) mmol/L Carbon Dioxide 20 L (22-30) mmol/L BUN 21 H (9-20) mg/dL Creatinine 2.28 H (0.66-1.25) mg/dL Albumin (PEP) 3.71 L (3.80-4.90) g/dL Angiotensin Convert Enz 4 L (8-52) U/L Vit D 1,25-Dihydroxy 95 H (20 - 79) pg/mL Assessment and Plan (1) Unspecified hydronephrosis Current Visit: Yes Status: Acute Code(s): N13.30 - UNSPECIFIED HYDRONEPHROSIS SNOMED Code(s): 12850403 Plan: The patient's renal function has improved since undergoing placement of a ureteral stent. Patient was made aware of the fact that the stent should not remain in place for more than 3 months. If he still requires a stent in 3 months, it will need to be exchanged. He will follow-up with Dr. Tong as an outpatient in 2 months.
[2023-09-29 15:15] VITALS: BP 148/88; TEMP 97.8
--- NOTE | 2023-09-29 15:41 | P.CNPUL ---
History of Present Illness Consult date: 09/29/23 Requesting physician: Kendall Hester Reason for consult: other (Abnormal CT of the chest) Chief complaint: Elevated calcium noted on outpatient lab testing History of present illness: This is a 48-year-old white male with history of ADHD, history of lymphadenopathy, he was initially noted to have enlarged lymph nodes back on 04/15/2023. At that time the patient also had excessive fatigue fever chills night sweats anorexia weight loss, and there was evidence on the CT of the chest of lymph nodes enlarged in the right neck and right shoulder area largest measuring 4.3 x 3.2 there was also evidence of right hilar and mediastinal lymphadenopathy along with gastrohepatic and retroperitoneal lymphadenopathy. Biopsy of the right supraclavicular lymph node on May 12 2023 showed at ypical neoplasm. 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 Repeat biopsy of the right supraclavicular lymph node obtained on July 07 2013 showed positive vimentin and CD117. Cancer type identification noted that 96% probability of seminoma with less than 5% probability of nonseminoma. Patient has been following up with oncology, and apparently the diagnosis of seminoma made more sense than anything else, it was felt that the patient had a stage IIIb [id number] that is intermediate risk, and the plan is to proceed with a 3-4 cycles of BEP chemotherapy. First cycle is scheduled to begin on 09/28/2023. Patient came into the ER on this admission wherein he had an outpatient blood test and noted to have high calcium 13.5. Ionized calcium was 7.6. Patient received fluid boluses in the form of 0.9 normal saline, patient received Zometa and calcitonin. His renal functioning was noted to be abnormal, and the patient was diagnosed as having hydronephrosis. This was felt to be related to retroperitoneal peritoneal adenopathy, patient underwent cystoscopy and left ureteral stent insertion on September. Considering the patient has abnormal CT of the chest, this consult was initiated. I reviewed the CT of the chest from 09/07/2023,And it is showing progressive anterior middle and posterior mediastinal adenopathy with worsening rectal crural adenopathy increased pleural-based nodularity small right-sided and trace left-sided pleural effusion, and there is also worsening now conglomerate upper abdominal and retroperitoneal adenopathy with moderate left- sided hydronephrosis. The findings are all consistent with his diagnosis of seminoma/metastatic hence my recommendation is to continue present supportive care measures and treatment as outlined by oncology on the case for Review of Systems REVIEW OF SYSTEMS: CONSTITUTIONAL: Multiple confusional symptoms including fever, weight loss, not feeling well. EYES: Negative. ENT: Negative. CARDIAC: Negative. PULMONARY: As above. GI: Negative. GENITOURINARY: Negative. MUSCULOSKELETAL: Negative. SKIN: Negative. NEUROPSYCH: Negative. ENDOCRINE: Negative. HEMATOLOGIC: Negative. Past Medical History Past Medical History: Cancer, Hyperlipidemia, Hypertension Additional Past Medical History / Comment(s): cervical and supraclavicular lymphadenopathy , constipated recently .recent tx for bronchitis. prod cough. abx and steroids.( pt states Dr Dickerson is aware) .still testing to confirm cancer . recent PET scan. left foot pain from prior injury playing basketball History of Any Multi-Drug Resistant Organisms: None Reported Past Surgical History: No Surgical Hx Reported Additional Past Surgical History / Comment(s): lymph node core biopsy right suprclavicular x2. - xanax pt states he was not asleep Past Anesthesia/Blood Transfusion Reactions: No Reported Reaction Additional Past Anesthesia/Blood Transfusion Reaction / Comment(s): no history transfusions Past Psychological History: ADD/ADHD Smoking Status: Current every day smoker Past Alcohol Use History: None Reported Additional Past Alcohol Use History / Comment(s): smoking less when sick. 12-13 cigarettes Past Drug Use History: None Reported - Past Family History Father Family Medical History: Diabetes Mellitus Medications and Allergies Home Medications Medication Instructions Recorded Confirmed Type Dextroamphetamine/Amphetamine 30 mg PO TID PRN 04/30/23 09/24/23 History [Adderall] HYDROcodone/APAP 7.5-325MG [[place] 1 tab PO TID PRN 04/30/23 09/24/23 History 7.5-325] lisinopriL [Zestril] 10 mg PO DAILY 04/30/23 09/24/23 History Cholecalciferol (Vitamin D3) 1,250 mcg PO Q28D 09/24/23 09/24/23 History [Vitamin D3 (1250 Mcg = 50,000 Iu)] Cyanocobalamin [Vitamin B-12 1,000 mcg SQ TU 09/24/23 09/24/23 History Injection] OLANZapine [ZyPREXA] 2.5 - 5 mg PO DIRECTED 09/24/23 09/24/23 History ondansetron HCL [Zofran] 8 mg PO Q6H PRN 09/24/23 09/24/23 History amLODIPine [Norvasc] 5 mg PO DAILY #30 tab 09/29/23 Rx Allergies Allergy/AdvReac Type Severity Reaction Status Date / Time rosuvastatin [From Crestor] AdvReac Nausea & Verified 09/24/23 16:16 Vomiting Physical Exam Vitals: Vital Signs Temp Pulse Pulse Resp BP Pulse Ox 09/29/23 14:00 80 17 09/29/23 11:30 97.8 F 73 17 148/88 98 09/29/23 08:00 97.7 F 65 80 17 134/84 98 09/29/23 04:00 97.6 F 87 16 117/65 94 L 09/29/23 02:00 70 80 16 09/29/23 00:00 97.5 F L 70 16 150/84 95 09/28/23 20:00 97.4 F L 75 80 16 142/86 95 09/28/23 16:20 97.3 F L 80 16 144/93 94 L Intake and Output 09/29/23 09/29/23 09/29/23 06:59 14:59 22:59 Intake Total 180 Balance 180 Intake: Oral 180 Other: Voiding Method Toilet Toilet # Voids 2 3 General: Revealed 48-year-old white male in no distress Skin: Skin is warm and dry and no rashes or lesions are noted. Eye: Pupils are equal, round and reactive to light, extra-ocular movements are intact; there is normal conjunctiva bilaterally. Ears, nose, mouth and throat: There are moist mucous membranes and no oral lesions. Neck: Positive right cervical lymphadenopathy and supraclavicular adenopathy noted. Cardiovascular: There is a regular rate and rhythm. No murmur, rub or gallop is appreciated. Respiratory: Clear bilaterally no rhonchi no wheezes Gastrointestinal: Soft, non-distended, non-tender abdomen without masses or organomegaly noted. There is no rebound or guarding present. Bowel sounds are unremarkable. Back: There is no tenderness to palpation in the midline. There is no obvious deformity. Musculoskeletal: Normal ROM, no tenderness, There is no pedal edema. There is no calf tenderness or swelling. No cords were appreciated. Neurological: CN II-XII intact, Cranial nerves III through XII are intact. There are no obvious motor or sensory deficits. Coordination appears grossly intact. Speech is normal. Psychiatric: Cooperative, appropriate mood & affect, normal judgment. Results - Laboratory Findings CBC and BMP: 09/25/23 08:22 09/29/23 06:54 Abnormal lab findings: Abnormal Labs 09/24/23 09/24/23 09/25/23 14:38 14:38 08:22 WBC 10.7 H 12.9 H RBC 4.21 L Hgb 12.7 L 11.8 L Hct 37.3 L 35.7 L RDW 16.2 H 16.5 H Neutrophils # 8.3 H 10.2 H Lymphocytes # 0.7 L 0.9 L Monocytes # 1.2 H 1.3 H Sodium Chloride Carbon Dioxide BUN 33 H Creatinine 2.49 H Glucose Calcium 13.5 H* Ionized Calcium Rohit 7.6 H* Magnesium 1.5 L Alkaline Phosphatase Albumin (PEP) Angiotensin Convert Enz Vitamin D 25-Hydroxy Vit D 1,25-Dihydroxy PTH Intact 09/25/23 09/25/23 09/25/23 09:21 12:22 12:22 WBC RBC Hgb Hct RDW Neutrophils # Lymphocytes # Monocytes # Sodium Chloride 108 H Carbon Dioxide BUN 28 H Creatinine 2.50 H Glucose Calcium 12.9 H Ionized Calcium Rohit Magnesium 1.5 L Alkaline Phosphatase 132 H Albumin (PEP) Angiotensin Convert Enz 4 L Vitamin D 25-Hydroxy 24.3 L Vit D 1,25-Dihydroxy 95 H PTH Intact 09/25/23 09/25/23 09/26/23 12:22 12:22 07:13 WBC RBC Hgb Hct RDW Neutrophils # Lymphocytes # Monocytes # Sodium Chloride 109 H Carbon Dioxide BUN 24 H Creatinine 2.26 H Glucose Calcium 12.0 H Ionized Calcium Rohit Magnesium Alkaline Phosphatase 145 H Albumin (PEP) 3.71 L Angiotensin Convert Enz Vitamin D 25-Hydroxy Vit D 1,25-Dihydroxy PTH Intact 10.3 L 09/27/23 09/28/23 09/29/23 08:23 09:19 06:54 WBC RBC Hgb Hct RDW Neutrophils # Lymphocytes # Monocytes # Sodium 136 L Chloride 108 H 112 H 111 H Carbon Dioxide 21 L 20 L 20 L BUN 21 H 21 H 26 H Creatinine 2.42 H 2.28 H 1.81 H Glucose 100 H Calcium 10.5 H Ionized Calcium Rohit Magnesium 1.5 L Alkaline Phosphatase 132 H Albumin (PEP) Angiotensin Convert Enz Vitamin D 25-Hydroxy Vit D 1,25-Dihydroxy PTH Intact - Diagnostic Findings Additional studies: CT of the chest from 09/07/2023 was reviewed. And as noted in HPI. Assessment and Plan Assessment: Impression: Acute hypercalcemia secondary to metastatic seminoma, treated and resolved Acute kidney injury secondary to obstructive uropathy/hydronephrosis requiring stent placement Mediastinal adenopathy and abnormal CT of the chest consistent with metastatic seminoma unless proven otherwise. Recommendation: Fully agree with the present treatment plan as outlined by oncology on the case. No need for any pulmonary intervention or biopsies at this point unless felt necessary by oncology on the case. Will follow as needed. Time with Patient: Greater than 30
--- NOTE | 2023-10-02 06:44 | PN ---
PROGRESS NOTE DATE OF SERVICE: 09/28/2023 CHIEF COMPLAINTS: Hypercalcemia, acute kidney injury and metastatic testicular carcinoma. SUBJECTIVE: This gentleman is going for a stent placement for his ureteral obstruction. After that, he will probably be able to go home either later today or tomorrow. PHYSICAL EXAMINATION: CHEST: Clear. CARDIAC: Normal. ABDOMEN: Slightly distended in the lower aspects and has fullness and mild tenderness. IMPRESSION: 1. Metastatic seminoma. 2. Acute kidney injury. 3. Ureteral obstruction. 4. Retroperitoneal carcinomatosis. PLAN: Ureteral stent today and continue analgesics. MMODL / IJN: [id number] /
--- NOTE | 2023-10-02 08:08 | DS ---
DISCHARGE SUMMARY CHIEF COMPLAINT: Acute kidney injury, metastatic testicular carcinoma, abdominal pain. HISTORY OF PRESENT ILLNESS AND PHYSICAL EXAMINATION: Details of this man's history and physical can be found in the initial workup. LABORATORY STUDIES: While in the hospital, he had laboratory studies, details of which can be found in the laboratory section of his chart. COURSE IN THE HOSPITAL: After admission, he was placed on bedrest, started on intravenous fluids and analgesics. He was seen by Nephrology, Urology, and it was determined that his stent should be placed where he had ureteral obstruction due to retroperitoneal adenopathy. While he was in the hospital, his pain was significant. He was also seen by Oncology. It was felt that he was able to go home on the and was to follow up. FINAL DIAGNOSES: 1. Hypercalcemia. 2. Acute kidney injury. 3. Ureteral obstruction. 4. Retroperitoneal metastatic carcinoma. 5. Testicular carcinoma (seminoma). OPERATIONS: None. CONSULTATIONS: Oncology, Nephrology, and Urology. MMODL / LENYN: [id number] /
--- NOTE | 2023-10-06 12:55 | P.OP ---
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 Had a CT from September 06 showing evidence of left-sided hydronephrosis secondary to retroperitoneal lymphadenopathy. Continues to have elevated creatinine at 2.2-2 point prior despite improvement of his hypercalcemia of note creatinine was 1.4, 2 weeks ago. Discussed with him given the worsening renal function and the plan to start cisplatin based chemotherapy for his seminoma I do recommend proceeding with stent insertion. Risk benefit and rationale of doing stent was discussed with him in details. Discussed if there is improvement in retroperitoneal lymphadenopathy then he will require stent removal, but if there is persistent then he will require future stent exchange Operative Findings: Medialization of the left proximal ureter with severe hydronephrosis Description of Procedure: Patient brought to the operating room, general anesthesia was induced. He was prepped and draped in sterile fashion placed in dorsolithotomy position. Cystoscopy through the 22 Citizen [place] sheath was inserted per urethra, cystoscopy was performed which showed no abnormality within the bladder. Attention was then carried to the left ureteral orifice which was intubated with a 6 [place] open- ended catheter, retrograde pyelogram was performed which showed normal distal and mid ureter, along the proximal ureter and close proximity to the UPJ there was significant lateralization of the ureter secondary to his retroperitoneal lymphadenopathy, with severe hydronephrosis, at this point a sensor wire was advanced through the catheter and the catheter was removed with the wire in place, the location of the wire was confirmed to be within the renal pelvis. Next a ureteral stent was passed over the wire, the proximal curl visualized on fluoroscopy and the distal curl was visualized using the cystoscope. The bladder was emptied at the end the case, there was hydronephrotic drip seen from the stent. Patient tolerated procedure well was taken to recovery in stable condition. At this time if patient has improvement of his retroperitoneal lymphadenopathy and we will plan on removing the stent, if he has persistent lymphadenopathy then he will require stent exchange in 3 to 4 months
== END 2023-09-29 15:12 | disposition home or self-care (01) | DRG 660 ==
LOC: EC 14:15 → 5NMEDONC 16:42 → 3SCARD 21:03
PROVIDERS: ADMIT Family Medicine; ATTEND Family Medicine
PROC: 0T778DZ Dilation of Left Ureter with Intraluminal Device, Via Natural or Artificial Opening Endoscopic (ICD-10-PCS; principal; 2023-09-28 11:30)
PROC: 02HV33Z Insertion of Infusion Device into Superior Vena Cava, Percutaneous Approach (ICD-10-PCS; 2023-09-29)
DX: N17.0 Acute kidney failure with tubular necrosis (principal); C79.9 Secondary malignant neoplasm of unspecified site; E83.52 Hypercalcemia; N13.1 Hydronephrosis with ureteral stricture, not elsewhere classified; N18.9 Chronic kidney disease, unspecified; C62.90 Malignant neoplasm of unspecified testis, unspecified whether descended or undescended; R59.0 Localized enlarged lymph nodes; E53.8 Deficiency of other specified B group vitamins; E83.42 Hypomagnesemia; E78.5 Hyperlipidemia, unspecified; F17.210 Nicotine dependence, cigarettes, uncomplicated; F90.9 Attention-deficit hyperactivity disorder, unspecified type; I12.9 Hypertensive chronic kidney disease with stage 1 through stage 4 chronic kidney disease, or unspecified chronic kidney disease; D72.828 Other elevated white blood cell count; D75.839 Thrombocytosis, unspecified; Z79.899 Other long term (current) drug therapy; Z28.310 Unvaccinated for COVID-19; Z28.9 Immunization not carried out for unspecified reason; Z88.8 Allergy status to other drugs, medicaments and biological substances
CPT/HCPCS: 36415; 36573; 74420; 80048; 80053; 81003; 82164; 82306; 82330; 82652; 83735; 83970; 84100; 84165; 85025; 86334; 93005; 96361; 96374; 96376; 99291

== ENCOUNTER 2023-09-30 17:49 | Inpatient (IN) | payer BC ==
--- NOTE | 2023-09-30 18:23 | ED ---
Abdominal Pain HPI - General Source: patient, RN notes reviewed Mode of arrival: ambulatory Limitations: no limitations <Cherri Riley - Last Filed: 09/30/23 18:21> <Toby Abbott - Last Filed: 09/30/23 21:05> - General Chief Complaint: Abdominal Pain Stated Complaint: Abdominal Pain Time Seen by Provider: 09/30/23 18:19 - History of Present Illness Initial Comments: Quick noteis a 48-year-old male presents emergency department with a past medical history of stage IV testicular cancer with chief complaint of abdominal pain. Patient was admitted to [facility] and discharged on Thursday s/p urethral stent placement. Follows with Dr. Dickerson. Denies current chemo or radiation. (Cherri Riley) - Related Data Home Medications Medication Instructions Recorded Confirmed Dextroamphetamine/Amphetamine 30 mg PO TID PRN 04/30/23 09/30/23 [Adderall] HYDROcodone/APAP 7.5-325MG [[place] 1 tab PO TID PRN 04/30/23 09/30/23 7.5-325] lisinopriL [Zestril] 10 mg PO DAILY 04/30/23 09/30/23 Cholecalciferol (Vitamin D3) 1,250 mcg PO Q28D 09/24/23 09/30/23 [Vitamin D3 (1250 Mcg = 50,000 Iu)] Cyanocobalamin [Vitamin B-12 1,000 mcg SQ TU 09/24/23 09/30/23 Injection] OLANZapine [ZyPREXA] 2.5 - 5 mg PO DIRECTED 09/24/23 09/30/23 ondansetron HCL [Zofran] 8 mg PO Q6H PRN 09/24/23 09/30/23 Acetaminophen/Diphenhydramine 2 tab PO HS PRN 09/30/23 09/30/23 [Tylenol PM 500-25mg] Docusate [Colace] 100 mg PO DAILY PRN 09/30/23 09/30/23 amLODIPine [Norvasc] 5 mg PO DIRECTED 09/30/23 09/30/23 Allergies Allergy/AdvReac Type Severity Reaction Status Date / Time No Known Allergies Allergy Verified 09/30/23 19:26 Review of Systems ROS Other: All systems not noted in ROS Statement are negative. <Cherri Riley - Last Filed: 09/30/23 18:21> ROS Other: All systems not noted in ROS Statement are negative. <Toby Abbott Radha - Last Filed: 09/30/23 21:05> ROS Statement: Those systems with pertinent positive or pertinent negative responses have been documented in the HPI. Past Medical History Past Medical History: Cancer, Hyperlipidemia, Hypertension Additional Past Medical History / Comment(s): cervical and supraclavicular lymphadenopathy , constipated recently .recent tx for bronchitis. prod cough. abx and steroids.( pt states Dr Dickerson is aware) .still testing to confirm cancer . recent PET scan. left foot pain from prior injury playing basketball History of Any Multi-Drug Resistant Organisms: None Reported Past Surgical History: No Surgical Hx Reported Additional Past Surgical History / Comment(s): lymph node core biopsy right suprclavicular x2. - xanax pt states he was not asleep Past Anesthesia/Blood Transfusion Reactions: No Reported Reaction Additional Past Anesthesia/Blood Transfusion Reaction / Comment(s): no history transfusions Past Psychological History: ADD/ADHD Smoking Status: Current every day smoker Past Alcohol Use History: None Reported Past Drug Use History: None Reported - Past Family History Father Family Medical History: Diabetes Mellitus <Cherri Riley - Last Filed: 09/30/23 18:21> General Exam Limitations: no limitations <Cherri Riley - Last Filed: 09/30/23 18:21> - General Exam Comments Initial Comments: Visual Physical Exam Vital signs reviewed General: Well-appearing, nontoxic, no acute distress. Head: Normocephalic, atraumatic Eyes: PERRLA, EOMI ENT: Airway patent Chest: Nonlabored breathing Skin: No visual rash, normal skin tone Neuro: Alert and oriented 3 Musculoskeletal: No gross abnormalities (Cherri Riley) Course Vital Signs 09/30/23 09/30/23 17:53 20:20 Temperature 97.7 F Pulse Rate 84 88 Respiratory 18 20 Rate Blood Pressure 178/90 138/79 O2 Sat by Pulse 96 93 L Oximetry Medical Decision Making <Cherri Riley - Last Filed: 09/30/23 18:21> - Lab Data Result diagrams: 09/30/23 18:38 09/30/23 18:38 <Toby Abbott N - Last Filed: 09/30/23 21:05> - Medical Decision Making I completed the quick note portion of this chart signed Cherri Riley PA-C (Cherri Riley) Was pt. sent in by a medical professional or institution (JORGE James, CRIMINAL ANALYST, urgent care, hospital, or jail...) When possible be specific @ -No Did you speak to anyone other than the patient for history (EMS, parent, family, police, friend...)? What history was obtained from this source @ -No Did you review nursing and triage notes (agree or disagree)? Why? @ -I reviewed and agree with nursing and triage notes Were old charts reviewed (outside hosp., previous admission, EMS record, old EKG, old radiological studies, urgent care reports/EKG's, jail records)? Report findings @ -No old charts were reviewed Differential Diagnosis (differential Abdominal Pain Men: Appendicitis, cholecystitis, diverticulosis, ischemic bowel, pancreatitis, hepatitis, UTI, gastroenteritis, AAA, incarcerated hernia, bowel obstruction, constipation, inflammatory bowel, hepatitis, peptic ulcer disease, splenic infarction, perforated viscus, testicular torsion, this is not meant to be an all-inclusive list EKG interpreted by me (3pts min.). @ -As above X-rays interpreted by me (1pt min.). @ -None done CT interpreted by me (1pt min.). @CT shows a chronic stable findings, no acute process. U/S interpreted by me (1pt. min.). @ -None done What testing was considered but not performed or refused? (CT, X-rays, U/S, labs)? Why? @ -None What meds were considered but not given or refused? Why? @ -None Did you discuss the management of the patient with other professionals (professionals i.e. JORGE James, CRIMINAL ANALYST, lab, RT, psych nurse, psychosocial rehabilitation counselor, software sales executive, teacher, school services officer, nurse outreach case manager)? Give summary @ -No Was smoking cessation discussed for >3mins.? @ -No Was critical care preformed (if so, how long)? @ -No Were there social determinants of health that impacted care today? How? (Homelessness, low income, unemployed, alcoholism, drug addiction, transporta tion, low edu. Level, literacy, decrease access to med. care, assisted, rehab)? @ -No Was there de-escalation of care discussed even if they declined (Discuss DNR or withdrawal of care, Hospice)? DNR status @ -No What co-morbidities impacted this encounter? (DM, HTN, Smoking, COPD, CAD, Cancer, CVA, ARF, Chemo, Hep., AIDS, mental health diagnosis, sleep apnea, morbid obesity)? @ -Metastatic cancer Was patient admitted / discharged? Hospital course, mention meds given and route, prescriptions, significant lab abnormalities, going to OR and other pertinent info. @48-year-old male with generalized abdominal pain, metastatic cancer. Workup is initiated, laboratory testing and CT. Patient will be admitted for pain control, case discussed with Dr. Hester. Undiagnosed new problem with uncertain prognosis? @ -No Drug Therapy requiring intensive monitoring for toxicity (Heparin, Nitro, Insulin, Cardizem)? @ -No Were any procedures done? @ -No Diagnosis/symptom? @ -[Generalized abdominal pain, metastatic cancer Acute, or Chronic, or Acute on Chronic? @ -Default Uncomplicated (without systemic symptoms) or Complicated (systemic symptoms)? @Complicated Side effects of treatment? @ -No Exacerbation, Progression, or Severe Exacerbation? @ -No Poses a threat to life or bodily function? How? (Chest pain, [place], [place], pneumonia, PE, COPD, DKA, ARF, appy, cholecystitis, CVA, Diverticulitis, Homicidal, Suicidal, threat to staff... and all critical care pts) @ -[Yes, admit metastatic cancer (Toby Abbott) - Lab Data Lab Results 09/30/23 09/30/23 09/30/23 Range/Units 18:38 18:38 18:38 WBC 16.3 H (3.8-10.6) k/uL RBC 4.30 (4.30-5.90) m/uL Hgb 11.7 L (13.0-17.5) gm/dL Hct 35.8 L (39.0-53.0) % MCV 83.4 (80.0-100.0) fL MCH 27.1 (25.0-35.0) pg MCHC 32.6 (31.0-37.0) g/dL RDW 16.3 H (11.5-15.5) % Plt Count 457 H (150-450) k/uL MPV 9.1 Neutrophils % 86 % Lymphocytes % 3 % Monocytes % 7 % Eosinophils % 3 % Basophils % 0 % Neutrophils # 14.0 H (1.3-7.7) k/uL Lymphocytes # 0.5 L (1.0-4.8) k/uL Monocytes # 1.1 H (0-1.0) k/uL Eosinophils # 0.5 (0-0.7) k/uL Basophils # 0.0 (0-0.2) k/uL Anisocytosis Slight Sodium 135 L (137-145) mmol/L Potassium 3.8 (3.5-5.1) mmol/L Chloride 103 (98-107) mmol/L Carbon Dioxide 24 (22-30) mmol/L Anion Gap 8 mmol/L BUN 19 (9-20) mg/dL Creatinine 1.37 H (0.66-1.25) mg/dL Est GFR (CKD-EPI)AfAm 70 (>60 ml/min/1.73 sqM) Est GFR (CKD-EPI)NonAf 61 (>60 ml/min/1.73 sqM) Glucose 92 (74-99) mg/dL Plasma Lactic Acid Marcus 0.7 (0.7-2.0) mmol/L Calcium 9.5 (8.4-10.2) mg/dL Total Bilirubin 0.4 (0.2-1.3) mg/dL AST 30 (17-59) U/L ALT 13 (4-49) U/L Alkaline Phosphatase 160 H (38-126) U/L Total Protein 7.2 (6.3-8.2) g/dL Albumin 3.9 (3.5-5.0) g/dL Lipase 37 (23-300) U/L Urine Color Urine Appearance (Clear) Urine pH (5.0-8.0) Ur Specific [place] (1.001-1.035) Urine Protein (Negative) Urine Glucose (UA) (Negative) Urine Ketones (Negative) Urine Blood (Negative) Urine Nitrite (Negative) Urine Bilirubin (Negative) Urine Urobilinogen (<2.0) mg/dL Ur Leukocyte Esterase (Negative) Urine RBC (0-5) /hpf Urine WBC (0-5) /hpf Urine Bacteria (None) /hpf Urine Mucus (None) /hpf 09/30/23 Range/Units 19:25 WBC (3.8-10.6) k/uL RBC (4.30-5.90) m/uL Hgb (13.0-17.5) gm/dL Hct (39.0-53.0) % MCV (80.0-100.0) fL MCH (25.0-35.0) pg MCHC (31.0-37.0) g/dL RDW (11.5-15.5) % Plt Count (150-450) k/uL MPV Neutrophils % % Lymphocytes % % Monocytes % % Eosinophils % % Basophils % % Neutrophils # (1.3-7.7) k/uL Lymphocytes # (1.0-4.8) k/uL Monocytes # (0-1.0) k/uL Eosinophils # (0-0.7) k/uL Basophils # (0-0.2) k/uL Anisocytosis Sodium (137-145) mmol/L Potassium (3.5-5.1) mmol/L Chloride (98-107) mmol/L Carbon Dioxide (22-30) mmol/L Anion Gap mmol/L BUN (9-20) mg/dL Creatinine (0.66-1.25) mg/dL Est GFR (CKD-EPI)AfAm (>60 ml/min/1.73 sqM) Est GFR (CKD-EPI)NonAf (>60 ml/min/1.73 sqM) Glucose (74-99) mg/dL Plasma Lactic Acid Marcus (0.7-2.0) mmol/L Calcium (8.4-10.2) mg/dL Total Bilirubin (0.2-1.3) mg/dL AST (17-59) U/L ALT (4-49) U/L Alkaline Phosphatase (38-126) U/L Total Protein (6.3-8.2) g/dL Albumin (3.5-5.0) g/dL Lipase (23-300) U/L Urine Color Colorless Urine Appearance Clear (Clear) Urine pH 6.0 (5.0-8.0) Ur Specific [place] 1.006 (1.001-1.035) Urine Protein Negative (Negative) Urine Glucose (UA) Negative (Negative) Urine Ketones Negative (Negative) Urine Blood Small H (Negative) Urine Nitrite Negative (Negative) Urine Bilirubin Negative (Negative) Urine Urobilinogen <2.0 (<2.0) mg/dL Ur Leukocyte Esterase Moderate H (Negative) Urine RBC 20 H (0-5) /hpf Urine WBC 3 (0-5) /hpf Urine Bacteria Rare H (None) /hpf Urine Mucus Rare H (None) /hpf Disposition <Cherri Riley - Last Filed: 09/30/23 18:21> Is patient prescribed a controlled substance at d/c from ED?: No Time of Disposition: 21:05 <Toby Abbott - Last Filed: 09/30/23 21:05> Clinical Impression: Intractable abdominal pain Disposition: ADMITTED IP TO THIS HOSP Condition: Stable Referrals: Kendall Hester MD [Primary Care Provider] - 1-2 days
[2023-09-30] MEDS: HYDROmorphone 1 MG/ML 1 ML SYRINGE IVP STA ×2 (18:42→20:20)
[2023-09-30] MEDS: SODIUM CHLORIDE 0.9% 500 ML 500 ML IV STA (18:54)
[2023-09-30 18:58] LABS: Anisocytosis Slight; Basophils % (A) 0 %; Eosinophils # (A) 0.5 k/uL (0-0.7); Eosinophils % (A) 3 %; HCT 35.8 % (39.0-53.0); HGB 11.7 gm/dL (13.0-17.5); Lymphocytes # (A) 0.5 k/uL (1.0-4.8); Lymphocytes % (A) 3 %; MCH 27.1 pg (25.0-35.0); MCHC 32.6 g/dL (31.0-37.0); MCV 83.4 fL (80.0-100.0); Mean Platelet Volume 9.1; Monocytes # (A) 1.1 k/uL (0-1.0); Monocytes % (A) 7 %; Neutrophils % (A) 86 %; Platelet Count 457 k/uL (150-450); RDW 16.3 % (11.5-15.5); WBC 16.3 k/uL (3.8-10.6)
[2023-09-30 19:01] LABS: ALT 13 U/L (4-49); AST 30 U/L (17-59); African American GFR (CKD) 70 (>60 ml/min/1.73 sqM); Albumin 3.9 g/dL (3.5-5.0); Alkaline Phosphatase 160 U/L (38-126); Anion Gap 8 mmol/L; Blood Urea Nitrogen 19 mg/dL (9-20); Calcium 9.5 mg/dL (8.4-10.2); Carbon Dioxide 24 mmol/L (22-30); Chloride 103 mmol/L (98-107); Glucose 92 mg/dL (74-99); Lipase 37 U/L (23-300); Non-African American GFR(CKD) 61 (>60 ml/min/1.73 sqM); Potassium 3.8 mmol/L (3.5-5.1); Sodium 135 mmol/L (137-145); Total Bilirubin 0.4 mg/dL (0.2-1.3); Total Protein 7.2 g/dL (6.3-8.2)
--- NOTE | 2023-09-30 19:11 | CT ---
EXAMINATION TYPE: CT abdomen pelvis wo con CT DLP: 914.8 mGycm, Automated exposure control for dose reduction was used. DATE OF EXAM: 09/30/2023 6:57 PM COMPARISON: CT chest abdomen pelvis most recent from 09/07/2023. CLINICAL INDICATION:Male, 48 years old with history of abdominal pain; generalized abd pain. TECHNIQUE: Standard CT of the abdomen and pelviswithout IV or oral contrast. Lack of IV or oral con trast limits evaluation of solid and hollow organ viscera. Coronal and sagittal reformats were perfor med. FINDINGS: LOWER CHEST: Small bilateral pleural effusions with associated atelectasis, right greater than left. Increase from prior exam. Small pericardial effusion. Multiple enlarged posterior mediastinal lymph n odes identified within the periaortic 3.1 cm short axis lymph node (series 21, image 9). Relatively s imilar size from prior exam. Additional multi paraspinal enlarged lymph nodes. ABDOMEN LIVER: Unremarkable noncontrast appearance. GALLBLADDER AND BILE DUCTS: Underdistended with circumferential wall thickening identified. PANCREAS: Unremarkable noncontrast appearance. SPLEEN: Unremarkable noncontrast appearance ADRENAL GLANDS: Unremarkable noncontrast appearance. KIDNEYS AND URETERS: No hydronephrosis. Left ureteral stent demonstrated. Prominent left renal sinus which is decreased in size from prior exam. Nonobstructive bilateral renal calculi redemonstrated. PELVIS BLADDER: Left ureteral stent is identified. REPRODUCTIVE: Unremarkable. ABDOMEN & PELVIS STOMACH AND BOWEL: No focal bowel wall thickening. No surrounding inflammatory changes. The appendix is within normal limits. No evidence of bowel obstruction. PERITONEUM: No evidence of pneumoperitoneum. Small amount of free fluid in the pelvis. VASCULATURE: No evidence of aortic aneurysm. Atherosclerotic calcification of aorta and its branches. MUSCULOSKELETAL: No acute osseous abnormalities LYMPH NODES: Multiple extensive gastrohepatic and loulou hepatic adenopathy redemonstrated. There is e xtension of the retroperitoneum with conglomerate adenopathy measuring up to 14.2 cm which is unchang ed from prior exam. SOFT TISSUE/ABDOMINAL WALL: Fat filled left inguinal hernia. Small fat filled umbilical hernia. IMPRESSION: 1. Redemonstration of extensive adenopathy involving the posterior mediastinum and throughout the up per abdomen and retroperitoneal regions. Overall similar in size to prior exam. 2. Slight increase in small bilateral pleural effusions with right greater than left. Extent 3. Small ascites throughout the abdomen and pelvis which is slightly increased from prior exam. 4. Left ureteral stent identified with improvement of hydronephrosis. Nonobstructive bilateral renal calculi. 5. Small pericardial effusion.
[2023-09-30 20:14] LABS: Appearance,Urine Clear (Clear); Bacteria,Urine Rare /hpf; Bilirubin,Urine Negative (Negative); Blood,Urine Small (Negative); Color,Urine Colorless; Glucose,Urine (UA) Negative (Negative); Ketones,Urine Negative (Negative); Leukocyte Esterase,Urine Moderate (Negative); Mucus,Urine Rare /hpf; Nitrite,Urine Negative (Negative); Protein,Urine Negative (Negative); RBC,Urine 20 /hpf (0-5); Specific Gravity,Urine 1.006 (1.001-1.035); Urobilinogen,Urine <2.0 mg/dL (<2.0); WBC,Urine 3 /hpf (0-5)
[2023-09-30] MEDS ORDERED: NALOXONE 0.4 MG/ML 1 ML VIAL IV PRN (20:32)
[2023-09-30] MEDS: HYDROmorphone 0.5 MG/0.5 ML SYRINGE IVP PRN (21:36)
[2023-09-30] MEDS: HYDROmorphone 1 MG/ML 1 ML SYRINGE IVP PRN (23:12)
[2023-10-01] MEDS: HYDROmorphone 1 MG/ML 1 ML SYRINGE IVP PRN (09:29)
--- NOTE | 2023-10-01 11:54 | CT ---
EXAMINATION TYPE: CT angio chest CT DLP: 603 mGycm, Automated exposure control for dose reduction was used. DATE OF EXAM: 10/01/2023 11:46 AM COMPARISON: 09/30/2023, 09/07/2023, 06/04/2023 CLINICAL INDICATION:Male, 48 years old with history of short of breath, r/o PE; SOB, rule out PE, hx testicular ca TECHNIQUE/CONTRAST: CTA scan of the thorax is performed with IV Contrast, patient injected with 80 mL of Isovue 370, MIP images are created and reviewed these are created on a separate workstation.. FINDINGS: Pulmonary Artery: There is no evidence for a filling defect within the pulmonary vasculature to sugge st acute pulmonary embolism. The pulmonary artery is of normal size. Lungs/Pleura: Small right and trace left pleural effusions. No pulmonary nodules definitively visuali zed. No evidence of focal consolidation pneumothorax. Airway: Large airways are patent. Heart: Heart is within normal limits for size. Vasculature: No evidence of aortic aneurysm. Mediastinum: Stents of lymphadenopathy throughout the mediastinum. Examples include 21 mm in short ax is right. Tracheal., 18 mm prevascular space, 20 mm left paratracheal, subcarinal measuring 23 mm. Musculoskeletal: Mild degenerative disc disease changes are present throughout the thoracolumbar spin e. Soft Tissues: Lymph nodes within the lower neck most proximal in the right measuring up to 24 mm in s hort axis and on the left measuring up to 22 mm. Lower neck: No significant findings. Upper Abdomen: Evidence of lymphadenopathy in the upper abdomen. IMPRESSION: 1. No evidence of pulmonary embolism. 2. Mediastinal, lower neck and upper abdominal lymphadenopathy compatible with metastatic disease. 3. Trace bilateral pleural effusions.
--- NOTE | 2023-10-01 17:23 | P.CONS ---
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 The patient was recently admitted to the hospital because of hypercalcemia and symptoms related to the same. This improved with treatment. During this admission the patient also had a PICC line placed, and underwent cystoscopy with left ureteral stent placement for hydronephrosis. He was discharged in 09/29/23. The patient states that he has had some upper abdominal and flank pain as well as back pain off and on. He states that he started having pain radiating around the upper abdomen, and going down both flanks as well as radiating around to the lower back and lower abdomen the night of his discharge. The symptoms persisted and apparently became worse. He states that he took one [place] that he has at home without improvement. He was also having some associated nausea and therefore came into the hospital. The patient had been constipated when admitted to the hospital recently, was states that he had a small bowel movement on 09/30/23. He reports his abdomen feeling "tight". According to his there appeared to be possibly some difficulty breathing. There was no bleeding in the stool or urine noted. The patient had a CT of the abdomen and pelvis that showed extensive adenopathy involving the posterior mediastinum, upper abdomen and retroperitoneum. This did not appear to be significantly different from before. There was some increase in ascites, but this was still overall small in amount. The patient had initially presented as metastatic malignancy, with primary difficult to determine. 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 Details of his presentation and workup regarding malignancy diagnosis has been detailed in our consultation from his recent admission. The patient was supposed to start BEP on 09/28/23, but this was postponed due to the afore-mentioned admission. Review of Systems Constitutional: Reports fatigue, Reports poor appetite, Reports weakness Eyes: denies blurred vision, denies pain Ears: deny: decreased hearing, ear discharge, earache, tinnitus Ears, nose, mouth and throat: Denies headache, Denies sore throat Cardiovascular: Denies chest pain, Denies shortness of breath Respiratory: Denies cough Gastrointestinal: Reports abdominal pain, Reports constipation Genitourinary: Reports as per HPI Integumentary: Denies pruritus, Denies rash Neurological: Reports weakness, Denies numbness Psychiatric: Denies anxiety, Denies depression Endocrine: Reports fatigue Hematologic/Lymphatic: Reports as per HPI Past Medical History Past Medical History: Cancer, Hyperlipidemia, Hypertension Additional Past Medical History / Comment(s): cervical and supraclavicular lymphadenopathy , constipated recently .recent tx for bronchitis. prod cough. abx and steroids.( pt states Dr Dickerson is aware) .still testing to confirm cancer . recent PET scan. left foot pain from prior injury playing basketball History of Any Multi-Drug Resistant Organisms: None Reported Past Surgical History: No Surgical Hx Reported Additional Past Surgical History / Comment(s): lymph node core biopsy right suprclavicular x2. - xanax pt states he was not asleep Past Anesthesia/Blood Transfusion Reactions: No Reported Reaction Additional Past Anesthesia/Blood Transfusion Reaction / Comm: no history transfusions Past Psychological History: ADD/ADHD Smoking Status: Current every day smoker Past Alcohol Use History: None Reported Additional Past Alcohol Use History / Comment(s): smoking less when sick. 12-13 cigarettes Past Drug Use History: None Reported - Past Family History Father Family Medical History: Diabetes Mellitus Medications and Allergies Home Medications Medication Instructions Recorded Confirmed Type Dextroamphetamine/Amphetamine 30 mg PO TID PRN 04/30/23 09/30/23 History [Adderall] HYDROcodone/APAP 7.5-325MG [[place] 1 tab PO TID PRN 04/30/23 09/30/23 History 7.5-325] lisinopriL [Zestril] 10 mg PO DAILY 04/30/23 09/30/23 History Cholecalciferol (Vitamin D3) 1,250 mcg PO Q28D 09/24/23 09/30/23 History [Vitamin D3 (1250 Mcg = 50,000 Iu)] Cyanocobalamin [Vitamin B-12 1,000 mcg SQ TU 09/24/23 09/30/23 History Injection] OLANZapine [ZyPREXA] 2.5 - 5 mg PO DIRECTED 09/24/23 09/30/23 History ondansetron HCL [Zofran] 8 mg PO Q6H PRN 09/24/23 09/30/23 History Acetaminophen/Diphenhydramine 2 tab PO HS PRN 09/30/23 09/30/23 History [Tylenol PM 500-25mg] Docusate [Colace] 100 mg PO DAILY PRN 09/30/23 09/30/23 History amLODIPine [Norvasc] 5 mg PO DIRECTED 09/30/23 09/30/23 History Allergies Allergy/AdvReac Type Severity Reaction Status Date / Time No Known Allergies Allergy Verified 09/30/23 19:26 Physical Exam Vitals: Vital Signs Temp Pulse Pulse Resp BP BP Pulse Ox 10/01/23 13:38 98.5 F 97 19 158/87 92 L 10/01/23 07:57 98.2 F 89 19 147/87 95 10/01/23 01:56 97.4 F L 95 18 142/77 93 L 09/30/23 23:58 98.9 F 84 17 138/81 94 L 09/30/23 23:24 80 16 139/77 93 L 09/30/23 20:20 88 20 138/79 93 L 09/30/23 17:53 97.7 F 84 18 178/90 96 Intake and Output 10/01/23 10/01/23 10/01/23 06:59 14:59 22:59 Intake Total 600 Balance 600 Intake: Oral 600 Other: # Voids 1 Weight 102.058 kg - Constitutional General appearance: no acute distress - EENT Eyes: EOMI, PERRLA ENT: hearing grossly normal, normal oropharynx - Neck Neck: no lymphadenopathy - Respiratory Respiratory: bilateral: CTA - Cardiovascular Rhythm: regular Heart sounds: normal: S1, S2 - Gastrointestinal General gastrointestinal: normal bowel sounds, soft - Integumentary Integumentary: normal - Neurologic Neurologic: CNII-XII intact - Musculoskeletal Musculoskeletal: generalized weakness, strength equal bilaterally - Psychiatric Psychiatric: A&O x's 3, appropriate affect Results CBC & Chem 7: 09/30/23 18:38 09/30/23 18:38 Labs: Abnormal Lab Results - Last 24 Hours (Table) 09/30/23 09/30/23 09/30/23 Range/Units 18:38 18:38 19:25 WBC 16.3 H (3.8-10.6) k/uL Hgb 11.7 L (13.0-17.5) gm/dL Hct 35.8 L (39.0-53.0) % RDW 16.3 H (11.5-15.5) % Plt Count 457 H (150-450) k/uL Neutrophils # 14.0 H (1.3-7.7) k/uL Lymphocytes # 0.5 L (1.0-4.8) k/uL Monocytes # 1.1 H (0-1.0) k/uL Sodium 135 L (137-145) mmol/L Creatinine 1.37 H (0.66-1.25) mg/dL Alkaline Phosphatase 160 H (38-126) U/L Urine Blood Small H (Negative) Ur Leukocyte Esterase Moderate H (Negative) Urine RBC 20 H (0-5) /hpf Urine Bacteria Rare H (None) /hpf Urine Mucus Rare H (None) /hpf CT scan - abdomen: report reviewed CT scan - pelvis: report reviewed Assessment and Plan (1) Intractable abdominal pain Narrative/Plan: The patient is pending with severe lower chest and abdominal pain. The pain is somewhat difficult to Rise, as according to the patient it involves the lower chest, upper abdomen, but seems to radiate around to the back both upper and lower, and also into the flanks. There does not appear to be any definite aggravating or relieving factor. His physical exam as well as CT of the abdomen and pelvis are unrevealing. - As the description of his symptoms includes possibly an inspiratory component and some shortness of breath with symptoms related to the lower chest also, I will check a CT angiogram to rule out PE. - If this is negative, consult urology to see if his symptoms are possibly related to the stent. However this is unlikely given the location of the stent, and the patient's symptoms. - If the above etiologies aren't ruled out, recommend adequate treatment for constipation, and symptomatic pain control. The patient CT abdomen and pelvis does not appear to show any significant change in terms of disease burden, Current Visit: Yes Status: Acute Code(s): R10.9 - UNSPECIFIED ABDOMINAL PAIN SNOMED Code(s): 29941876 (2) Seminoma Narrative/Plan: The patient has not yet started treatment. His chemotherapy regimen, specifica lly BEP will be rescheduled to after discharge Current Visit: No Status: Acute Priority: High Code(s): C62.90 - MALIG NEOPLASM OF UNSP TESTIS, UNSP DESCENDED OR UNDESCENDED SNOMED Code(s): 534610435
--- NOTE | 2023-10-01 22:42 | P.GSCN ---
History of Present Illness Consult date: 10/01/23 Reason for Consult: Left hydronephrosis, abdominal pain Requesting physician: Kendall Hester History of present illness: The patient is a 48-year-old white male with a history of metastatic seminoma. He has left hydronephrosis due to retroperitoneal adenopathy. He was recently hospitalized and underwent insertion of a left ureteral stent on September 28, 2023. He is now admitted with bilateral upper abdominal and flank pain. He does indicate that his discomfort is greater on the right than the left. Repeat CT s can yesterday shows the left ureteral stent to be in good position, and the hydronephrosis improved. His serum creatinine level has declined since he underwent stent placement. Past Medical History Past Medical History: Cancer, Hyperlipidemia, Hypertension Additional Past Medical History / Comment(s): cervical and supraclavicular ly mphadenopathy , constipated recently .recent tx for bronchitis. prod cough. abx and steroids.( pt states Dr Dickerson is aware) .still testing to confirm cancer . recent PET scan. left foot pain from prior injury playing basketball History of Any Multi-Drug Resistant Organisms: None Reported Past Surgical History: No Surgical Hx Reported Additional Past Surgical History / Comment(s): lymph node core biopsy right suprclavicular x2. - xanax pt states he was not asleep Past Anesthesia/Blood Transfusion Reactions: No Reported Reaction Additional Past Anesthesia/Blood Transfusion Reaction / Comm: no history transfusions Past Psychological History: ADD/ADHD Smoking Status: Current every day smoker Past Alcohol Use History: None Reported Additional Past Alcohol Use History / Comment(s): smoking less when sick. 12-13 cigarettes Past Drug Use History: None Reported - Past Family History Father Family Medical History: Diabetes Mellitus Medications and Allergies Home Medications Medication Instructions Recorded Confirmed Type Dextroamphetamine/Amphetamine 30 mg PO TID PRN 04/30/23 09/30/23 History [Adderall] HYDROcodone/APAP 7.5-325MG [[place]ana 1 tab PO TID PRN 04/30/23 09/30/23 History 7.5-325] lisinopriL [Zestril] 10 mg PO DAILY 04/30/23 09/30/23 History Cholecalciferol (Vitamin D3) 1,250 mcg PO Q28D 09/24/23 09/30/23 History [Vitamin D3 (1250 Mcg = 50,000 Iu)] Cyanocobalamin [Vitamin B-12 1,000 mcg SQ TU 09/24/23 09/30/23 History Injection] OLANZapine [ZyPREXA] 2.5 - 5 mg PO DIRECTED 09/24/23 09/30/23 History ondansetron HCL [Zofran] 8 mg PO Q6H PRN 09/24/23 09/30/23 History Acetaminophen/Diphenhydramine 2 tab PO HS PRN 09/30/23 09/30/23 History [Tylenol PM 500-25mg] Docusate [Colace] 100 mg PO DAILY PRN 09/30/23 09/30/23 History amLODIPine [Norvasc] 5 mg PO DIRECTED 09/30/23 09/30/23 History Allergies Allergy/AdvReac Type Severity Reaction Status Date / Time No Known Allergies Allergy Verified 09/30/23 19:26 Surgical - Exam Vital Signs Temp Pulse Resp BP Pulse Ox 97.7 F 84 18 178/90 96 09/30/23 17:53 09/30/23 17:53 09/30/23 17:53 09/30/23 17:53 09/30/23 17:53 - General well developed, well nourished, no distress - Respiratory normal respiratory effort - Abdomen Abdomen: soft, non tender, no guarding, no rigid, no rebound - Psychiatric oriented to time, oriented to person, oriented to place, speech is normal, memory intact Results - Labs 09/30/23 18:38 09/30/23 18:38 Abnormal Lab Results - Last 24 Hours (Table) 09/30/23 Range/Units 19:25 Urine Blood Small H (Negative) Ur Leukocyte Esterase Moderate H (Negative) Urine RBC 20 H (0-5) /hpf Urine Bacteria Rare H (None) /hpf Urine Mucus Rare H (None) /hpf - Imaging CT scan - abdomen: report reviewed, image reviewed Assessment and Plan (1) Unspecified hydronephrosis Current Visit: No Status: Acute Code(s): N13.30 - UNSPECIFIED HYDRONEPHROSIS SNOMED Code(s): 95496904 Plan: CT scan shows the left ureteral stent to be properly positioned, and given the improvement in hydronephrosis and renal function I feel that is functioning properly. The patient's discomfort is bilateral but greater on the right, and I thus do not believe that the stent is the cause of his pain. I explained this to the patient in detail. Time with Patient: Greater than 30
--- NOTE | 2023-10-02 04:43 | HP ---
HISTORY AND PHYSICAL CHIEF COMPLAINT: Intractable abdominal pain with metastatic testicular carcinoma. HISTORY OF PRESENT ILLNESS: This gentleman was just sent home several days ago, but his lower abdominal pain became progressively more severe and he is back. He is to be treated for metastatic seminoma. When he was in the hospital, a ureteral stent was placed due to blockage secondary to his retroperitoneal adenopathy. He denies fever, chills, vomiting, etc. Past medical history, family history, personal and social histories are all otherwise unremarkable and unchanged. He has had a history of hypertension. PHYSICAL EXAMINATION: VITAL SIGNS: Normal. CHEST: Clear. CARDIAC: Normal. ABDOMEN: Slightly distended and he is quite tender in the lower aspects where there is firmness in both lower quadrants. EXTREMITIES: Normal. NEUROLOGICAL: He is intact. DIAGNOSES: He is admitted to the hospital with diagnoses, 1. Intractable lower abdominal and back pain secondary to metastatic seminoma. 2. History of hypertension. 3. History of renal failure. PLAN: 1. Bed rest. 2. IV fluids. 3. Increase analgesics. 4. Consult with Oncology. MMODL / IJN: [id number] /
--- NOTE | 2023-10-02 06:53 | PN ---
PROGRESS NOTE DATE OF SERVICE: 10/01/2023 CHIEF COMPLAINT: Intractable lower abdominal and back pain. HISTORY OF PRESENT ILLNESS: This gentleman is still having severe pain in the lower abdomen and back. He is on Dilaudid and will increase the dose and frequency. PHYSICAL EXAMINATION: CHEST: Clear. CARDIAC: Normal. ABDOMEN: Tender and full in the lower quadrants. IMPRESSION: 1. Metastatic testicular carcinoma. 2. Intractable abdominal back pain. PLAN: 1. Increase analgesics. 2. Consult Oncology. MMODL / IJN: [id number] /
[2023-10-02] MEDS ORDERED: ONDANSETRON 4 MG TAB PO PRN (09:58)
[2023-10-02] MEDS ORDERED: ACETAMINOPHEN TAB 500 MG TAB PO PRN (09:58)
[2023-10-02] MEDS ORDERED: NON FORMULARY DRUG (Dextroamphetamine/Amphetamine [Adderall] 30 MG Tablet) PO PRN (09:58)
[2023-10-02] MEDS ORDERED: DOCUSATE 100 MG CAP PO PRN (09:58)
[2023-10-02] MEDS ORDERED: diphenhydrAMINE 50 MG CAP PO PRN (10:04)
[2023-10-02] MEDS: amLODIPine 5 MG TAB PO SCH (11:26)
[2023-10-02] MEDS: HYDROmorphone 1 MG/ML 1 ML SYRINGE IVP PRN (11:26)
[2023-10-02 11:32] LABS: ALT 11 U/L (4-49); AST 28 U/L (17-59); African American GFR (CKD) 75 (>60 ml/min/1.73 sqM); Albumin 3.8 g/dL (3.5-5.0); Albumin/Globulin Ratio 1.2; Alkaline Phosphatase 177 U/L (38-126); Anion Gap 8 mmol/L; Blood Urea Nitrogen 14 mg/dL (9-20); Calcium 8.6 mg/dL (8.4-10.2); Carbon Dioxide 27 mmol/L (22-30); Chloride 94 mmol/L (98-107); Globulin 3.2 g/dL; Glucose 88 mg/dL (74-99); Magnesium 1.4 mg/dL (1.6-2.3); Non-African American GFR(CKD) 65 (>60 ml/min/1.73 sqM); Sodium 129 mmol/L (137-145); Total Bilirubin 0.9 mg/dL (0.2-1.3)
[2023-10-02 12:11] LABS: Anisocytosis Slight; Basophils # (A) 0.1 k/uL (0-0.2); Basophils % (A) 0 %; Eosinophils # (A) 0.1 k/uL (0-0.7); Eosinophils % (A) 0 %; HGB 11.7 gm/dL (13.0-17.5); Lymphocytes # (A) 0.7 k/uL (1.0-4.8); Lymphocytes % (A) 3 %; MCH 27.7 pg (25.0-35.0); MCHC 32.5 g/dL (31.0-37.0); MCV 85.2 fL (80.0-100.0); Mean Platelet Volume 11.2; Monocytes % (A) 8 %; Neutrophils # (A) 20.9 k/uL (1.3-7.7); Neutrophils % (A) 87 %; Platelet Count 410 k/uL (150-450); RBC 4.22 m/uL (4.30-5.90); RDW 16.2 % (11.5-15.5); WBC 24.1 k/uL (3.8-10.6)
[2023-10-02] MEDS: HYDROcodone/APAP 7.5-325MG 1 EACH TAB PO PRN (13:21)
[2023-10-02] MEDS ORDERED: OLANZapine 2.5 MG TAB PO SCH (13:45)
--- NOTE | 2023-10-02 13:52 | XR ---
EXAMINATION TYPE: XR chest 1V portable DATE OF EXAM: 10/02/2023 COMPARISON: 10/01/2023 HISTORY: Shortness of breath TECHNIQUE: Single frontal view of the chest is obtained. FINDINGS: Mediastinal widening with a large mass in the right upper lobe mediastinum. Heart enlarged and there is bilateral consolidation with small effusion. Right-sided PICC line. No pneumothorax. Os seous structures are stable. IMPRESSION: 1. Small bilateral pleural effusion greater on the right with basilar infiltrate. 2. Large mediastinal mass impressing upon the right upper lobe.
--- NOTE | 2023-10-02 14:23 | PN ---
PROGRESS NOTE DATE OF SERVICE: 10/02/2023 I am covering for Dr. Hester. SUBJECTIVE: This is a 48-year-old gentleman with metastatic seminoma, was complaining of severe abdominal pain. The patient is necessitating very extremely high dose of Dilaudid 2 mg IV q.2h p.r.n. Multiple consultants are following the patient closely. The left ureteral stent was properly positioned. Chest CTA showed mediastinal and upper abdominal lymphadenopathy. The CAT scan showed extensive adenopathy and small ascites and left ureteral stent. PAST MEDICAL HISTORY: Reviewed. REVIEW OF SYSTEMS: A 14-point review is negative except as mentioned earlier. CURRENT MEDICATIONS: Reviewed include Dilaudid. OBJECTIVE: VITAL SIGNS: Pulse 106, blood pressure 110/62, respirations 18. CHEST: Clear to auscultation. CARDIOVASCULAR: S1, S2. ABDOMEN: Soft, mild diffuse tenderness present. No guarding, no rigidity, no mass. Bowel sounds present. LEGS: No edema, no swelling. SKIN: No ulcer, rash, bleeding. JOINTS: No active deforming arthropathy. LABORATORY DATA: WBC 24.1, sodium 129. ASSESSMENT: 1. Severe intractable abdominal pain with metastatic seminoma. 2. Extensive lymphadenopathy. 3. Elevated WBC. 4. Hypertension. 5. History of renal failure. 6. Multiple medical issues. 7. Hyponatremia. RECOMMENDATIONS AND DISCUSSION: I recommended to continue current management, continue symptomatic treatment. At this time, I would recommend to initiate [place] 1 mg and cut down the dose of Dilaudid to 1 mg and slowly to 0.5 mg possible. Otherwise, DVT prophylaxis. Continue the rest of medications. The patient's white count is also elevated. I will recommend a set of blood cultures also, repeat labs will be ordered. Prognosis extremely guarded because of multiple complex medical issues and further recommendations, see orders for details. CT scan reviewed. MMODL / IJN: [id number] /
[2023-10-02] MEDS: PANTOPRAZOLE 40 MG/10 ML VIAL IVP SCH (14:33)
[2023-10-02] MEDS: HEPARIN SODIUM,PORCINE 5,000 UNIT/ML 1 ML VIAL SQ SCH (14:33)
[2023-10-02] MEDS: HYDROcodone/APAP 7.5-325MG 1 EACH TAB PO SCH (17:50)
[2023-10-02] MEDS: DOCUSATE 100 MG CAP PO SCH (20:57)
[2023-10-03] MEDS: lisinopriL 10 MG TAB PO SCH (08:18)
[2023-10-03 09:21] LABS: HCT 31.9 % (39.6-50.0); HGB 10.3 g/dL (13.0-17.0); MCH 26.8 pg (27.0-32.0); MCHC 32.3 g/dL (32.0-37.0); MCV 83.1 FL (80.0-97.0); Mean Platelet Volume 11.5 FL (9.5-12.2); NRBC Per 100 WBC 0 X 10*3/uL (0.00-0.01); Platelet Count 456 X 10*3/uL (140-440); RBC 3.84 X 10*6/uL (4.40-5.60); RDW 17.2 % (11.5-14.5); WBC 19.02 X 10*3/uL (4.50-10.00)
[2023-10-03 09:26] LABS: ALT 11 U/L (10-49); AST 30 U/L (14-35); Albumin 3.7 g/dL (3.8-4.9); Albumin/Globulin Ratio 1.42 Ratio (1.60-3.17); Alkaline Phosphatase 180 U/L (41-126); BUN/Creat Ratio 10.08 Ratio (12.00-20.00); Blood Urea Nitrogen 12.1 mg/dL (9.0-27.0); Calcium 8.5 mg/dL (8.7-10.3); Carbon Dioxide 25.4 mmol/L (21.6-31.8); Chloride 94 mmol/L (96-109); Globulin 2.6 g/dL (1.6-3.3); Glucose 107 mg/dL (70-110); Potassium 3.8 mmol/L (3.5-5.5); Sodium 133 mmol/L (135-145); Total Bilirubin 0.5 mg/dL (0.3-1.2); Total Protein 6.3 g/dL (6.2-8.2)
[2023-10-03 10:41] LABS: Basophils # (A) 0.05 X 10*3/uL (0.00-0.10); Basophils % (A) 0.3 %; Eosinophils # (A) 0.06 X 10*3/uL (0.04-0.35); Eosinophils % (A) 0.3 %; Lymphocytes # (A) 0.47 X 10*3/uL (0.90-5.00); Lymphocytes % (A) 2.5 %; Monocytes # (A) 2.09 X 10*3/uL (0.20-1.00); Neutrophils # (A) 15.95 X 10*3/uL (1.80-7.70); Neutrophils % (A) 83.8 %
--- NOTE | 2023-10-03 12:30 | P.PN ---
Subjective Progress Note Date: 10/02/23 Patient reporting improvement in abdominal pain since admission. Reports he had a bowel movement. Low-grade temperature of 99.7 noted, with increase in WBCs, today 24.1. Urine culture pending. Will obtain blood cultures. Kidney function continues to improve. Objective - Vital Signs Vital signs: Vital Signs Temp 98.7 F 10/02/23 12:27 Pulse 94 10/02/23 12:27 Resp 17 10/02/23 12:27 BP 126/73 10/02/23 12:27 Pulse Ox 93 L 10/02/23 12:27 FiO2 Intake & Output 10/01/23 10/02/23 10/02/23 18:59 06:59 18:59 Intake Total 540 600 Balance 540 600 Intake: Oral 540 600 Other: Voiding Method Toilet Toilet # Voids 2 3 - Constitutional General appearance: Present: average body habitus, no acute distress - EENT Eyes: Present: anicteric sclerae, EOMI ENT: Present: hearing grossly normal - Respiratory Details: breathing is even and unlabored - Cardiovascular Details: skin warm and dry - Gastrointestinal General gastrointestinal: Present: soft. Absent: tenderness - Integumentary Integumentary: Absent: cyanotic - Neurologic Neurologic: Present: CNII-XII intact - Musculoskeletal Musculoskeletal: Present: strength equal bilaterally - Psychiatric Psychiatric: Present: A&O x's 3 - Labs CBC & Chem 7: 10/03/23 05:20 10/03/23 05:20 Labs: Abnormal Lab Results - Last 24 Hours (Table) 10/02/23 10/02/23 Range/Units 10:45 10:45 WBC 24.1 H (3.8-10.6) k/uL RBC 4.22 L (4.30-5.90) m/uL Hgb 11.7 L (13.0-17.5) gm/dL Hct 36.0 L (39.0-53.0) % RDW 16.2 H (11.5-15.5) % Neutrophils # 20.9 H (1.3-7.7) k/uL Lymphocytes # 0.7 L (1.0-4.8) k/uL Monocytes # 2.0 H (0-1.0) k/uL Sodium 129 L (137-145) mmol/L Chloride 94 L (98-107) mmol/L Creatinine 1.30 H (0.66-1.25) mg/dL Magnesium 1.4 L (1.6-2.3) mg/dL Alkaline Phosphatase 177 H (38-126) U/L Assessment and Plan (1) Intractable abdominal pain Current Visit: Yes Status: Acute Priority: High Code(s): R10.9 - UNSPECIFIED ABDOMINAL PAIN SNOMED Code(s): 78890903 (2) Seminoma Current Visit: Yes Status: Acute Priority: High Code(s): C62.90 - MALIG NEOPLASM OF UNSP TESTIS, UNSP DESCENDED OR UNDESCENDED SNOMED Code(s): 880758516 Plan: Intractable abdominal pain: The patient is presented with severe lower chest and abdominal pain. The pain is somewhat difficult to Rise, as according to the patient it involves the lower chest, upper abdomen, but seems to radiate around to the back both upper and lower, and also into the flanks, right greater than left. There does not appear to be any definite aggravating or relieving factor. His physical exam as well as CT of the abdomen and pelvis are unrevealing and scan does not appear to show any significant change in terms of disease burden - As the description of his symptoms includes possibly an inspiratory component and some shortness of breath with symptoms related to the lower chest also, I will check a CT angiogram to rule out PE. -CTA chest negative for PE. Trace bilateral effusions, and known abnormal lymphadenopathy - Since scan negative, urology was consulted to see if his symptoms are possibly related to the stent. However, this is unlikely given the location of the stent, and the patient's symptoms. - Low-grade temperature of 99.7 noted, with increase in WBCs, today WBC 24.1. Urine culture pending. Will obtain blood cultures - Reports he had a bowel movement. Colace added daily. Continue symptomatic pain control with goal to transition patient off IV pain meds.IM team have adjusted pain medications. Discussed pain management and use of pain meds at home Seminoma: -The patient has not yet started treatment, as treatment has been delayed due to multiple hospital admissions -His chemotherapy regimen, BEP will be rescheduled upon discharge Doctor attests: I performed a history and physical examination of this patient, developed impression and plan of care. Discussed with dictator. I agree with dictators note, documented as a scribe.
--- NOTE | 2023-10-03 20:02 | PN ---
PROGRESS NOTE DATE OF SERVICE: 10/03/2023 SUBJECTIVE: This 48-year-old gentleman admitted with possible seminoma with multiple intractable severe pain with failure of outpatient treatment. The patient was given Dilaudid 2 mg. I have cut down the Dilaudid with some alleviation of the pain, however, the patient needs continuous monitoring. The patient also had elevated WBC. I am also planning to start some empiric antibiotics and obtain the cultures to rule out the possibility of sepsis at this time. PAST MEDICAL HISTORY: Reviewed. REVIEW OF SYSTEMS: A 14-point review of systems is negative except as mentioned earlier. CURRENT MEDICATIONS: Reviewed include [place], dose and rest of medications noted. OBJECTIVE: VITAL SIGNS: Pulse is 97, blood pressure 156/70, respirations 18. CHEST: Few scattered rhonchi. ABDOMEN: Soft. NERVOUS SYSTEM: Nonfocal. LABORATORY DATA: WBC 19.02. Sodium 133. ASSESSMENT: 1. Severe intractable abdominal pain with multiple metastasis and metastatic seminoma. 2. Extensive lymphadenopathy. 3. Elevated WBC, rule out sepsis. 4. Hypertension. 5. History of renal failure. 6. Multiple medical issues. 7. Hyponatremia. RECOMMENDATIONS AND DISCUSSION: I recommended to continue current management as mentioned earlier. Continue the low dose of pain medications and I would also recommend empiric antibiotics and obtain cultures. Procalcitonin. Prognosis guarded because of multiple complex medical issues. Further recommendations to follow. See orders for details. Dr. Hester will follow on Thursday. MADISONL / LENYN: [id number] / MTDD
[2023-10-04 08:16] LABS: ALT 17 U/L (4-49); AST 33 U/L (17-59); African American GFR (CKD) 80 (>60 ml/min/1.73 sqM); Albumin 3.4 g/dL (3.5-5.0); Albumin/Globulin Ratio 1.1; Alkaline Phosphatase 258 U/L (38-126); Anion Gap 6 mmol/L; Blood Urea Nitrogen 12 mg/dL (9-20); Calcium 8.2 mg/dL (8.4-10.2); Carbon Dioxide 28 mmol/L (22-30); Chloride 99 mmol/L (98-107); Globulin 3.2 g/dL; Glucose 96 mg/dL (74-99); Non-African American GFR(CKD) 69 (>60 ml/min/1.73 sqM); Sodium 133 mmol/L (137-145); Total Bilirubin 0.5 mg/dL (0.2-1.3); Total Protein 6.6 g/dL (6.3-8.2)
[2023-10-04 08:30] LABS: Anisocytosis Slight; Basophils # (A) 0.1 k/uL (0-0.2); Basophils % (A) 0 %; Eosinophils # (A) 0.2 k/uL (0-0.7); Eosinophils % (A) 1 %; HCT 33.1 % (39.0-53.0); HGB 10.7 gm/dL (13.0-17.5); Lymphocytes # (A) 0.4 k/uL (1.0-4.8); Lymphocytes % (A) 3 %; MCH 27.4 pg (25.0-35.0); MCHC 32.2 g/dL (31.0-37.0); MCV 85.2 fL (80.0-100.0); Mean Platelet Volume 9.8; Monocytes # (A) 1.5 k/uL (0-1.0); Monocytes % (A) 11 %; Neutrophils # (A) 11.7 k/uL (1.3-7.7); Neutrophils % (A) 83 %; Platelet Count 439 k/uL (150-450); RBC 3.89 m/uL (4.30-5.90); RDW 16.2 % (11.5-15.5); WBC 14.1 k/uL (3.8-10.6)
[2023-10-04] MEDS: LACTULOSE 20 GM/30 ML CUP PO SCH (13:31)
--- NOTE | 2023-10-04 22:44 | PN ---
PROGRESS NOTE DATE OF SERVICE: 10/04/2023 SUBJECTIVE: This is a 48-year-old gentleman admitted with severe intractable abdominal pain. He is on IV pain medications. No chest pain. No palpitations. No fever. Hematology, Oncology following the patient closely. OBJECTIVE: VITAL SIGNS: Pulse is 107, blood pressure 115/69, respirations 20. CHEST: A few scattered rhonchi. ABDOMEN: Soft, minimal diffuse discomfort on the lower part of the abdomen especially. NERVOUS SYSTEM: No focal deficits. LABORATORY DATA: Noted. WBC 14.1. ASSESSMENT: 1. Severe intractable abdominal pain with multiple metastatic seminoma. 2. Extensive lymphadenopathy. 3. Elevated WBC, rule out sepsis on empiric antibiotics. 4. Hypertension. 5. History of renal failure. 6. Multiple medical issues. 7. Hyponatremia. 8. Mediastinal lymphadenopathy. RECOMMENDATIONS AND DISCUSSION: This is a 48-year-old gentleman who presented with multiple complex medical issues, we will monitor the patient closely. Symptomatic treatment of the pain will be continued. Follow closely with Hematology, Oncology. Empiric antibiotics initiated as mentioned earlier. Follow the cultures which are negative so far and I would recommend follow up labs and follow up with Dr. Hester tomorrow morning. Further recommendations to follow. MMODL / IJN: [id number] /
[2023-10-05 11:10] LABS: ALT 31 U/L (10-49); AST 58 U/L (14-35); Albumin 3.5 g/dL (3.8-4.9); Albumin/Globulin Ratio 1.17 Ratio (1.60-3.17); Alkaline Phosphatase 396 U/L (41-126); BUN/Creat Ratio 7.23 Ratio (12.00-20.00); Blood Urea Nitrogen 9.4 mg/dL (9.0-27.0); Calcium 8.1 mg/dL (8.7-10.3); Carbon Dioxide 22.3 mmol/L (21.6-31.8); Chloride 94 mmol/L (96-109); Glucose 98 mg/dL (70-110); Potassium 4.1 mmol/L (3.5-5.5); Sodium 131 mmol/L (135-145); Total Bilirubin 0.6 mg/dL (0.3-1.2); Total Protein 6.5 g/dL (6.2-8.2)
[2023-10-05 11:47] LABS: Basophils # (A) 0.07 X 10*3/uL (0.00-0.10); Basophils % (A) 0.4 %; Eosinophils # (A) 0.22 X 10*3/uL (0.04-0.35); Eosinophils % (A) 1.4 %; HCT 31.1 % (39.6-50.0); HGB 9.9 g/dL (13.0-17.0); Lymphocytes # (A) 0.43 X 10*3/uL (0.90-5.00); Lymphocytes % (A) 2.7 %; MCH 26.9 pg (27.0-32.0); MCHC 31.8 g/dL (32.0-37.0); MCV 84.5 FL (80.0-97.0); Mean Platelet Volume 11.6 FL (9.5-12.2); Monocytes # (A) 1.58 X 10*3/uL (0.20-1.00); Monocytes % (A) 9.8 %; NRBC Per 100 WBC 0 X 10*3/uL (0.00-0.01); Neutrophils # (A) 13.34 X 10*3/uL (1.80-7.70); Neutrophils % (A) 82.8 %; Platelet Count 438 X 10*3/uL (140-440); RBC 3.68 X 10*6/uL (4.40-5.60); RDW 17.8 % (11.5-14.5)
[2023-10-05] MEDS: MORPHINE SULFATE ER 60 MG TABLET PO SCH (14:35)
--- NOTE | 2023-10-05 14:45 | P.PN ---
Subjective Progress Note Date: 10/05/23 Principal diagnosis: abd pain, ruby malignancy Pt c/o persistent pain in the abd/low back, associated with abd spasms. "That one drug works really good, but I need it all the time". We had a long discussion of reason for his [id number] expectations for pain control, and need to transition to oral pain meds. Pt needs to start treatment Objective - Vital Signs Vital signs: Vital Signs Temp 97.2 F L 10/05/23 12:19 Pulse 80 10/05/23 12:19 Resp 16 10/05/23 12:19 BP 110/68 10/05/23 12:19 Pulse Ox 97 10/05/23 12:19 FiO2 Intake & Output 10/04/23 10/05/23 10/05/23 18:59 06:59 18:59 Intake Total 600 Output Total 30 Balance -30 600 Intake: Oral 600 Output: Post Void Residual 30 Other: Voiding Method Toilet # Voids 2 3 # Bowel Movements 1 - Constitutional General appearance: Present: average body habitus, cooperative, no acute distress - EENT Eyes: Present: anicteric sclerae, EOMI ENT: Present: hearing grossly normal - Respiratory Details: resp even and unlabored - Cardiovascular Details: skin warm and dry, well perfused - Gastrointestinal General gastrointestinal: Present: distended, hyperactive bowel sounds, soft. Absent: absent bowel sounds, decreased bowel sounds, hepatomegaly, normal bowel sounds, organomegaly, rigid, scaphoid, splenomegaly, tenderness, umbilical hernia, ventral hernia - Integumentary Integumentary: Present: normal - Neurologic Neurologic: Present: CNII-XII intact - Musculoskeletal Musculoskeletal: Present: strength equal bilaterally - Psychiatric Psychiatric: Present: A&O x's 3, appropriate affect, intact judgment & insight - Labs CBC & Chem 7: 10/05/23 07:14 10/05/23 07:14 Labs: Abnormal Lab Results - Last 24 Hours (Table) 10/05/23 10/05/23 Range/Units 07:14 07:14 WBC 16.10 H (4.50-10.00) X 10*3/uL RBC 3.68 L (4.40-5.60) X 10*6/uL Hgb 9.9 L (13.0-17.0) g/dL Hct 31.1 L (39.6-50.0) % MCH 26.9 L (27.0-32.0) pg MCHC 31.8 L (32.0-37.0) g/dL RDW 17.8 H (11.5-14.5) % Immature Gran # 0.46 H (0.00-0.04) X 10*3/uL Neutrophils # 13.34 H (1.80-7.70) X 10*3/uL Lymphocytes # 0.43 L (0.90-5.00) X 10*3/uL Monocytes # 1.58 H (0.20-1.00) X 10*3/uL Sodium 131 L (135-145) mmol/L Chloride 94 L (96-109) mmol/L Anion Gap 14.70 H (4.00-12.00) mmol/L BUN/Creatinine Ratio 7.23 L (12.00-20.00) Ratio Calcium 8.1 L (8.7-10.3) mg/dL AST 58 H (14-35) U/L Alkaline Phosphatase 396 H (41-126) U/L Albumin 3.5 L (3.8-4.9) g/dL Albumin/Globulin Ratio 1.17 L (1.60-3.17) Ratio Microbiology - Last 24 Hours (Table) 10/02/23 14:06 Blood Culture - Preliminary Blood 10/02/23 14:06 Blood Culture - Preliminary Blood Assessment and Plan (1) Intractable abdominal pain Current Visit: Yes Status: Acute Priority: High Code(s): R10.9 - UNSPECIFIED ABDOMINAL PAIN SNOMED Code(s): 95244633 (2) Seminoma Current Visit: Yes Status: Acute Priority: High Code(s): C62.90 - MALIG NEOPLASM OF UNSP TESTIS, UNSP DESCENDED OR UNDESCENDED SNOMED Code(s): 369371837 (3) Unspecified hydronephrosis Current Visit: No Status: Chronic Priority: Medium Code(s): N13.30 - UNSPECIFIED HYDRONEPHROSIS SNOMED Code(s): 35344250 Plan: Intractable abdominal pain -Persists per pt today -Patient has a history of pain as he was on [place] prior to ever seeing oncology. -Unclear the exact reason for this exacerbation of pain. No pain on physical exam of the abd today. CT AP does not show any significant changes in disease or new disease. -CTA neg for PE -Urology has seen pt, not felt to be r/t stent. -Urine and blood cultures neg at 48 hours, no overt fevers. -Had a long discussion with patient today regarding pain management goals. Realistic goal of pain control is going to be for pain score between 2-4. Treatment is what will help the most with pain. -Conversion of narcotic dosing discussed with Pharm.D. IV narcotics have converted to oral, IV pain medications are being discontinued. Will recheck pain control in AM. Hopeful that pt can be discharged soon -Narcotic contract will be signed in Med Onc office with a plan for tapering starting LAYO after start of treatment -Reporting difficulty with BM, likely from significant narcotic use. Senna/colace 2 BID ordered scheduled. Lactulose is available. Seminoma: -The patient has not yet started treatment, as treatment has been delayed due to multiple hospital admissions. Now trying to manage pain -Double lumen PICC placed -Plan for treatment to start next Thursday at 8 AM in office. Hydronephrosis -Secondary to extrinsic compression of ureter from malignancy -Urology has seen and evaluated patient. Current complaints not felt to be related to the same. -Anticipate with treatment of seminoma extrinsic compression will resolve and stent will be able to be removed. Doctor attests: I performed a history and physical examination of this patient, developed impression and plan of care. Discussed with dictator. I agree with dictators note, documented as a scribe.
[2023-10-05] MEDS: HYDROcodone/APAP 10-325MG 1 EACH TAB PO SCH (18:38)
[2023-10-05] MEDS: SENNOSIDES-DOCUSATE SODIUM 1 EACH TAB PO SCH (20:52)
[2023-10-06] MEDS: CYANOCOBALAMIN 1,000 MCG/ML 1 ML VIAL SQ SCH (09:30)
[2023-10-06 13:05] VITALS: BP 101/56; PULSE 85; RESP 16; TEMP 98
--- NOTE | 2023-10-06 16:20 | P.PN ---
Subjective Progress Note Date: 10/06/23 Principal diagnosis: abd pain, grand traverse malignancy In f/u today pt reporting reasonable pain control on oral regimen. He feels that he can be discharged now. Does have concerns for constipation Objective - Vital Signs Vital signs: Vital Signs Temp 98 F 10/06/23 11:50 Pulse 85 10/06/23 11:50 Resp 16 10/06/23 11:50 BP 101/56 10/06/23 11:50 Pulse Ox 95 10/06/23 11:50 FiO2 Intake & Output 10/05/23 10/06/23 10/06/23 18:59 06:59 18:59 Intake Total 50 540 Balance 50 540 Intake: Intake, IV Titration 50 Amount cefTRIAXone 1 gm In 50 Sodium Chloride 0.9% 50 ml @ 100 mls/hr IVPB Q24HR [facility] Rx#:[id number] Oral 540 Other: Voiding Method Toilet Toilet # Voids 2 - Constitutional General appearance: Present: average body habitus, cooperative, no acute dis tress - EENT Eyes: Present: anicteric sclerae, EOMI ENT: Present: hearing grossly normal - Respiratory Details: resp even and unlabored - Cardiovascular Details: skin warm and dry - Peripheral edema leg Peripheral Edema: bilateral: None - Gastrointestinal General gastrointestinal: Present: normal bowel sounds, soft - Integumentary Integumentary: Present: normal - Neurologic Neurologic: Present: CNII-XII intact - Musculoskeletal Musculoskeletal: Present: strength equal bilaterally - Psychiatric Psychiatric: Present: A&O x's 3, appropriate affect, intact judgment & insight - Labs CBC & Chem 7: 10/05/23 07:14 10/05/23 07:14 Labs: Microbiology - Last 24 Hours (Table) 10/02/23 14:06 Blood Culture - Preliminary Blood 10/02/23 14:06 Blood Culture - Preliminary Blood Assessment and Plan (1) Intractable abdominal pain Current Visit: Yes Status: Acute Priority: High Code(s): R10.9 - UNSPECIFIED ABDOMINAL PAIN SNOMED Code(s): 02490930 (2) Seminoma Current Visit: Yes Status: Acute Priority: High Code(s): C62.90 - MALIG NEOPLASM OF UNSP TESTIS, UNSP DESCENDED OR UNDESCENDED SNOMED Code(s): 433953834 (3) Unspecified hydronephrosis Current Visit: No Status: Chronic Priority: Medium Code(s): N13.30 - UNSPECIFIED HYDRONEPHROSIS SNOMED Code(s): 08438226 Plan: Intractable abdominal pain -Pt reporting decent pain control on oral regimen started yesterday -Still not exactly clear as to the exact reason for this exacerbation of pain. He does not have pain on physical exam of the abd. CT AP does not show any significant changes in disease or new disease. -Urology has seen pt, not felt to be r/t stent. No reports or urinary retention -Urine and blood cultures neg at 72 hours, no fevers. -We again reviewed pain management goals, realistic goals of pain control and plan for titration down of pain meds over time. Treatment is what will help the most with pain. He verbalized understanding plan -Narcotic contract will be signed in Med Onc office with a plan for tapering starting LAYO after start of treatment -Reporting difficulty with BM, likely from significant narcotic use. Senna/colace 2 BID ordered scheduled. Lactulose is available. -MS contin, norco and senna Rx sent to [facility] per pt preference. They were sent from office. Communicated that with RN Seminoma: -The patient has not yet started treatment, as treatment has been delayed due to multiple hospital admissions. -Double lumen PICC placed -Plan for treatment to start next Thursday at 8 AM in office. Hydronephrosis -Secondary to extrinsic compression of ureter from malignancy -Urology has seen and evaluated patient. Current complaints not felt to be related to the same. -Anticipate with treatment of seminoma extrinsic compression will resolve and stent will be able to be removed. Pt ok for DC from Onc standpoint once cleared by Attending and other consulting MDs Time with Patient: Greater than 30
[2023-10-21] MEDS ORDERED: CHOLECALCIFEROL 125 MCG (5000 IU) TABLET PO SCH (09:00)
== END 2023-10-06 18:20 | disposition home or self-care (01) | DRG 723 ==
LOC: EC 17:49 → 5NMEDONC 20:34
PROVIDERS: ADMIT Family Medicine; ATTEND Family Medicine
DX: C62.90 Malignant neoplasm of unspecified testis, unspecified whether descended or undescended (principal); C79.9 Secondary malignant neoplasm of unspecified site; E87.1 Hypo-osmolality and hyponatremia; N13.30 Unspecified hydronephrosis; R18.8 Other ascites; R10.9 Unspecified abdominal pain; I10 Essential (primary) hypertension; Z85.47 Personal history of malignant neoplasm of testis; E78.5 Hyperlipidemia, unspecified; G89.3 Neoplasm related pain (acute) (chronic); F90.9 Attention-deficit hyperactivity disorder, unspecified type; R59.0 Localized enlarged lymph nodes; F17.210 Nicotine dependence, cigarettes, uncomplicated; Z71.6 Tobacco abuse counseling; M54.50 Low back pain, unspecified; Z79.899 Other long term (current) drug therapy
CPT/HCPCS: 36415; 71045; 71275; 74176; 80053; 81001; 83605; 83690; 83735; 84145; 85025; 86140; 87040; 87086; 87636; 96361; 96374; 96376; 99285

== ENCOUNTER → 2024-01-07 | Outpatient (CLI) | payer BC ==
--- NOTE | 2024-01-31 09:18 | CT ---
Site ID [facility] Patient William Dumas S ID [id number] Age/Gender: 48Y, M Order # N/A Procedure CT ChestAbdPelvis w con Date 01/07/2024 9:15:00 AM EXAMINATION TYPE: CT ChestAbdPelvis w con CT DLP: 2770 mGycm, Automated exposure control for dose reduction was used. DATE OF EXAM: 01/14/2024 5:57 PM COMPARISON: CTA chest 10/01/2023, CT abdomen and pelvis 09/30/2023, CT chest abdomen and pelvis 09/07/2023 , PET CT 06/04/2023 CLINICAL INDICATION: Male, 48 year old with history of testicular cancer, follow-up. Technique: Multiple axial images of the chest, abdomen, and pelvis were obtained following the intrav enous administration of 100 mL Isovue-300. Oral contrast was administered. Two-dimensional coronal an d sagittal reconstructions were obtained. Findings: CHEST: LUNGS/ PLEURA: No pneumothorax. No suspicious pulmonary nodule or mass. Trace right pleural effusion with adjacent atelectasis. Bibasilar interstitial thickening. AIRWAY: Patent and unremarkable.. HEART: Size within normal limits. No pericardial effusion. Mild coronary arterial calcifications. MEDIASTINUM: Previous CT demonstrated mediastinal and hilar adenopathy has decreased in size from karine or examination. Examples include a decrease size of superior mediastinal lymph node now measuring 0.8 cm, previously 2.2 cm. Subcarinal lymph node now measures 1.8 cm short axis, previously 2.3 cm. Ther e is some calcification identified indicating treatment. Right hilar lymph node now measures 2.4 cm, previously 3.1 cm with now internal calcification. VASCULATURE: No aortic aneurysm. Right PICC line identified with tip terminating in the high SVC. MUSCULOSKELETAL: No acute osseous abnormalities. No aggressive osseous lesion. SOFT TISSUES/LYMPH NODES: Decrease in size of paraesophageal and para-aortic lymphadenopathy from karine or exam. LOWER NECK: Decreased size of right supraclavicular lymph node measuring 1.4 cm short axis, previousl y 2.4 cm. ABDOMEN: ABDOMEN LIVER: Tiny subcentimeter hypodense focus within the left hepatic lobe which is too small to characte rize. GALLBLADDER AND BILE DUCTS: Contracted gallbladder. No biliary duct dilatation. PANCREAS: Unremarkable. SPLEEN: Unremarkable. ADRENAL GLANDS: Unremarkable. KIDNEYS AND URETERS: No evidence of hydronephrosis. The kidneys enhance symmetrically. Decreased left hydronephrosis status post ureteral stent. Prominent left extrarenal pelvis. Nonobstructive left inf erior pole 5 mm calculus. PELVIS BLADDER: Underdistended with left ureteral stent identified. REPRODUCTIVE: Unremarkable. ABDOMEN & PELVIS STOMACH AND BOWEL: Stomach and duodenum are unremarkable. Enteric contrast is reaching the mid small bowel. No focal bowel wall thickening or surrounding inflammatory changes. The appendix is within nor mal limits. No evidence of bowel obstruction. PERITONEUM: No evidence of pneumoperitoneum or free fluid. VASCULATURE: Mild atherosclerotic calcifications are present throughout the abdominal aorta and its b ranches. No abdominal aortic aneurysm. Portal venous system appears patent. There is continued encase ment of the celiac axis and extends into the common hepatic artery and splenic artery by conglomerate lymphadenopathy. MUSCULOSKELETAL: No acute osseous abnormalities. No aggressive osseous lesion. Degenerative disc dise ase L5-S1. LYMPH NODES: Decreased size of iliac chain lymph nodes measuring less than 5 mm short axis. Decreased size of periaortic lymph nodes with exams including a left paracolic lymph node measuring 2.0 cm alysa rt axis, previously 6.8 cm. Decreased size of portal venous lymph nodes with examples including a 2.2 cm lymph node, previously 5.2 cm. SOFT TISSUE/ABDOMINAL WALL: Small left fat filled inguinal hernia. Small fat filled umbilical hernia. IMPRESSION: 1. Positive response to therapy with marked decreased size of metastatic mediastinal, supraclavicular , retroperitoneal and pelvic lymphadenopathy. 2. Decreased now trace right pleural effusion with resolution of left pleural effusion.
== END | disposition home or self-care (01) ==
LOC: RADCTMAIN 07:26
PROVIDERS: ATTEND Internal Medicine
DX: C62.90 Malignant neoplasm of unspecified testis, unspecified whether descended or undescended (principal); D50.9 Iron deficiency anemia, unspecified; D51.8 Other vitamin B12 deficiency anemias; J90 Pleural effusion, not elsewhere classified; Z71.3 Dietary counseling and surveillance; Z85.47 Personal history of malignant neoplasm of testis
CPT/HCPCS: 71260; 74177; 36415; Q9967

== ENCOUNTER → 2024-02-16 | Outpatient (CLI) | payer BC ==
[2024-02-16 21:16] LABS: Basophils # (A) 0.06 X 10*3/uL (0.00-0.10); Basophils % (A) 0.4 %; Eosinophils # (A) 0.28 X 10*3/uL (0.04-0.35); Eosinophils % (A) 1.7 %; HCT 36.9 % (39.6-50.0); HGB 11.8 g/dL (13.0-17.0); Lymphocytes # (A) 1.04 X 10*3/uL (0.90-5.00); Lymphocytes % (A) 6.4 %; MCH 30.5 pg (27.0-32.0); MCV 95.3 FL (80.0-97.0); Monocytes % (A) 6.8 %; NRBC Per 100 WBC 0 X 10*3/uL (0.00-0.01); Neutrophils # (A) 13.55 X 10*3/uL (1.80-7.70); Neutrophils % (A) 83.6 %; Platelet Count 377 X 10*3/uL (140-440); RBC 3.87 X 10*6/uL (4.40-5.60); RDW 15.4 % (11.5-14.5); WBC 16.21 X 10*3/uL (4.50-10.00)
[2024-02-16 21:51] LABS: Blood Urea Nitrogen 13.7 mg/dL (9.0-27.0); Calcium 9.8 mg/dL (8.7-10.3); Carbon Dioxide 23.7 mmol/L (21.6-31.8); Chloride 101 mmol/L (96-109); Glucose 115 mg/dL (70-110); Potassium 4.1 mmol/L (3.5-5.5); Sodium 138 mmol/L (135-145)
== END | disposition home or self-care (01) ==
LOC: LABPAT 16:16
PROVIDERS: ATTEND Urology
DX: Z01.812 Encounter for preprocedural laboratory examination (principal); N13.30 Unspecified hydronephrosis
CPT/HCPCS: 80048; 85025

== ENCOUNTER 2024-02-25 07:27 | Day surgery (SDC) | payer BC ==
--- NOTE | 2024-02-12 13:07 | P.GSHP ---
History of Present Illness H&P Date: 02/12/24 Chief Complaint: Left hydronephrosis The patient is a 49-year-old white male with a history of metastatic seminoma. He has left hydronephrosis due to retroperitoneal adenopathy. He was recently hospitalized and underwent insertion of a left ureteral stent on September 28, 2023. F ollowing stent placement, his hydronephrosis improved and his renal function likewise improved. Recent CT scan has shown diminished size of his adenopathy. However, because the adenopathy has not resolved I have suggested that he undergo Arrington catheter exchange rather than removal. - Cardiovascular Cardiovascular: Reports high blood pressure - Genitourinary (Male) Genitourinary: Reports urinary frequency, Denies dysuria, Denies hematuria Past Medical History Past Medical History: Cancer, Hyperlipidemia, Hypertension Additional Past Medical History / Comment(s): cervical and supraclavicular lymphadenopathy , constipated recently .recent tx for bronchitis. prod cough. abx and steroids.( pt states Dr Dickerson is aware) .still testing to confirm cancer . recent PET scan. left foot pain from prior injury playing basketball History of Any Multi-Drug Resistant Organisms: None Reported Past Surgical History: No Surgical Hx Reported Additional Past Surgical History / Comment(s): lymph node core biopsy right suprclavicular x2. - xanax pt states he was not asleep Past Anesthesia/Blood Transfusion Reactions: No Reported Reaction Additional Past Anesthesia/Blood Transfusion Reaction / Comment(s): no history transfusions Past Psychological History: ADD/ADHD Smoking Status: Current every day smoker - Past Family History Father Family Medical History: Diabetes Mellitus Medications and Allergies Home Medications Medication Instructions Recorded Confirmed Type Dextroamphetamine/Amphetamine 30 mg PO TID PRN 04/30/23 09/30/23 History [Adderall] lisinopriL [Zestril] 10 mg PO DAILY 04/30/23 09/30/23 History Cholecalciferol (Vitamin D3) 1,250 mcg PO Q28D 09/24/23 09/30/23 History [Vitamin D3 (1250 Mcg = 50,000 Iu)] Cyanocobalamin [Vitamin B-12 1,000 mcg SQ TU 09/24/23 09/30/23 History Injection] OLANZapine [ZyPREXA] 2.5 - 5 mg PO DIRECTED 09/24/23 09/30/23 History ondansetron HCL [Zofran] 8 mg PO Q6H PRN 09/24/23 09/30/23 History Acetaminophen/Diphenhydramine 2 tab PO HS PRN 09/30/23 09/30/23 History [Tylenol PM 500-25mg] amLODIPine [Norvasc] 5 mg PO DIRECTED 09/30/23 09/30/23 History HYDROcodone/APAP 10-325MG [[place] 1 tab PO Q6HR PRN 15 Days #30 tab 10/06/23 Rx 10-325] Morphine Sulfate ER [Ms Contin] 60 mg PO Q12HR 15 Days #30 tab 10/06/23 Rx Sennosides/Docusate Sodium [Senna 2 each PO BID #120 tablet 10/06/23 Rx Plus 8.6-50 mg Tablet] Allergies Allergy/AdvReac Type Severity Reaction Status Date / Time No Known Allergies Allergy Verified 09/30/23 19:26 Surgical - Exam - General well developed, well nourished, no distress - Respiratory normal respiratory effort - Abdomen Abdomen: soft, non tender, no guarding, no rigid, no rebound - Genitourinary normal penis with no external lesions, testicles non-tender - Psychiatric oriented to time, oriented to person, oriented to place, speech is normal, memory intact Results - Imaging CT scan - abdomen: report reviewed, image reviewed Assessment and Plan (1) Unspecified hydronephrosis Status: Chronic Priority: Medium Code(s): N13.30 - UNSPECIFIED HYDRONEPHROSIS SNOMED Code(s): 67703800 Plan: Cystoscopy, left ureteral stent change. The procedure has been reviewed in detail with the patient. He is aware of potential risks, which include anesthesia, bleeding, infection, and ureteral injury.
[~2024-02-25 07:27] MED LIST changes: -BEBTELOVIMAB (EUA) 175 MG/2 ML VIAL IV NR; +HYDROmorphone 0.5 MG/0.5 ML SYRINGE IVP PRN; +LIDOCAINE 1% (10MG/ML) FOR IV START INTRADERMA PRN; +MIDAZOLAM 2 MG/2 ML VIAL IV PRN; -SODIUM CHLORIDE 0.9% 500 ML 500 ML in EMPTY BAG 1 BAG IV PRN; +fentaNYL (PF) 50 MCG/ML 2 ML AMP IVP PRN
[2024-02-25] MEDS: LACTATED RINGERS 1,000 ML IV SCH (08:07)
[2024-02-25] MEDS: DEXAMETHASONE SOD PHOSPHATE 4 MG/ML 1 ML VIAL IV ONE (08:09)
[2024-02-25] MEDS: ONDANSETRON 4 MG/2 ML VIAL IVP ONE (08:09)
[2024-02-25] MEDS: IV FLUID CONTINUATION 1,000 ML IV ONE (08:12)
[2024-02-25] MEDS ORDERED: fentaNYL (PF) 50 MCG/ML 2 ML AMP ONE (09:00)
[2024-02-25] MEDS ORDERED: GLYCOPYRROLATE 0.2 MG/ML 2 ML VIAL ONE (09:00)
[2024-02-25] MEDS ORDERED: KETAMINE HCL IN 0.9 % NACL 50 MG/5 ML SYRINGE ONE (09:00)
[2024-02-25] MEDS ORDERED: MIDAZOLAM 2 MG/2 ML VIAL ONE (09:00)
[2024-02-25] MEDS ORDERED: PROPOFOL 10 MG/ML 20 ML VIAL IV ONE (09:00)
--- NOTE | 2024-02-25 09:35 | P.OP ---
Date of Procedure: 02/25/24 Preoperative Diagnosis: Left hydronephrosis Postoperative Diagnosis: Same Procedure(s) Performed: Cystoscopy, left ureteral stent change Anesthesia: MAC Surgeon: Phani Camacho Estimated Blood Loss (ml): 0 IV fluids (ml): 700 Pathology: none sent Condition: stable Disposition: PACU Indications for Procedure: The patient is a 49-year-old white male with a history of metastatic seminoma. He has left hydronephrosis due to retroperitoneal adenopathy. He was recently hospitalized and underwent insertion of a left ureteral stent on September 28, 2023. Following stent placement, his hydronephrosis improved and his renal function likewise improved. Recent CT scan has shown diminished size of his adenopathy. However, because the adenopathy has not resolved I have suggested that he undergo Arrington catheter exchange rather than removal. Operative Findings: Successful left ureteral stent change. The removed stent was partially calcified but patent. Description of Procedure: The patient was taken to the operating room and placed in the dorsolithotomy position, with legs supported in Smith stirrups. The external genitalia was prepped and draped sterilely. The 30 lens was used to introduce the 22-Citizen Of [place] Stortz cystoscopic sheath through the urethra and into the bladder under direct vision. The prostatic urethra showed evidence of mild lateral lobe enlargement. The bladder was examined in its entirety. The right ureteral orifice appeared normal. No tumors or foreign bodies were seen. Grasping forceps were used to grasp the distal end of the left ureteral stent, which was then withdrawn. A 0.035 inch Glidewire was passed through the stent and up to the left renal pelvis. The stent was somewhat calcified but patent. After removing the old stent, a silicone 26 cm, 6-Citizen [place] double-J ureteral stent was placed over the wire. Proper stent positioning was verified fluoroscopically and endoscopically. The bladder was emptied and the cystoscope removed. The patient tolerated the procedure well and was taken to the recovery room in stable condition.
[2024-02-25 09:49] VITALS: TEMP 97
[2024-02-25 09:50] VITALS: RESP 16
--- NOTE | 2024-02-25 10:37 | FL ---
EXAMINATION TYPE: FL guidance operating room DATE OF EXAM: 02/25/2024 9:48 AM COMPARISON: Pre Operative Images if available both CT/MRI or plain film CLINICAL INDICATION: Male, 48 years old with history of Cysto with LT stent; TECHNIQUE: FL guidance operating room, multiple fluoroscopic images provided for procedure. Total fluoroscopy time: 8 seconds Total submitted images to PACS: 1 DAP: 0.78527 mGym2 Gycm2 uGym2 cGycm2 or equivalent. FINDINGS: Multiple intraoperative fluoroscopic images were taken resulting in ureteral stent placement with sup erior pigtail in appropriate position projecting over the renal pelvis. No immediate intraoperative c omplication. Multilevel degeneration changes throughout the spine. IMPRESSION: 1. No evidence for intraoperative complication. 2. Please see the operative/procedural note for further details. [facility], , 02/25/2024 10:35 AM
[2024-02-25 11:01] VITALS: BP 122/77; PULSE 77
== END 2024-02-25 11:15 | disposition home or self-care (01) ==
LOC: OR 07:27
PROVIDERS: ATTEND Urology
DX: N13.30 Unspecified hydronephrosis

== ENCOUNTER → 2024-05-03 | Outpatient (CLI) | payer BC, OTHER ==
--- NOTE | 2024-05-03 10:36 | CT ---
EXAMINATION TYPE: CT ChestAbdPelvis w con CT DLP: 1938.80 mGycm, Automated exposure control for dose reduction was used. DATE OF EXAM: 05/03/2024 10:17 AM COMPARISON: CT chest abdomen and pelvis 01/14/2024, CTA chest 10/01/2023, CT abdomen and pelvis 09/30/2023 , CT chest abdomen and pelvis 09/07/2023, PET CT 06/04/2023 CLINICAL INDICATION:Male, 48 years old with history of C62.90 MALIG NEOPLASM OF UNSP TESTIS, UNSP DIANDRA CEND; [facility], f/u testicular cancer Technique: Multiple axial images of the chest, abdomen, and pelvis were obtained following the intrav enous administration of 100 mL Isovue-300. Two-dimensional coronal and sagittal reconstructions were obtained. Findings: CHEST: LUNGS/ PLEURA: No pneumothorax with resolution of previously seen trace right pleural effusion. No le ft pleural effusion. No suspicious pulmonary nodule or mass. Right basilar intralobular septal thicke puneet. AIRWAY: Patent and unremarkable.. HEART: Size within normal limits.Trace pericardial effusion. Mild coronary arterial calcifications. MEDIASTINUM: Previous CT demonstrated mediastinal and hilar adenopathy has decreased in size from karine or examination. Examples include a stable superior mediastinal lymph node now measuring 0.9 cm, previ ously 2.2 cm. Subcarinal lymph node now measures 1.4 cm short axis, previously 1.8 cm. There is some calcification identified indicating treatment again. Right hilar lymph node now measures 2.2 cm with internal calcification, previously 2.3 cm. VASCULATURE: No aortic aneurysm. Right PICC line identified with tip terminating in the high SVC. MUSCULOSKELETAL: No acute osseous abnormalities. No aggressive osseous lesion. Right pectoralis intra muscular lipoma redemonstrated. SOFT TISSUES/LYMPH NODES: Decrease in size of paraesophageal and para-aortic lymphadenopathy from karine or exam. LOWER NECK: Stable size of right supraclavicular lymph node measuring 1.4 cm short axis. ABDOMEN: ABDOMEN LIVER: Tiny subcentimeter hypodense focus within the left hepatic lobe which is too small to characte rize. GALLBLADDER AND BILE DUCTS: Contracted gallbladder. No biliary duct dilatation. PANCREAS: Unremarkable. SPLEEN: Unremarkable. ADRENAL GLANDS: Unremarkable. KIDNEYS AND URETERS: No evidence of hydronephrosis. The kidneys enhance symmetrically. Stable mild le ft hydronephrosis status post ureteral stent. Prominent left extrarenal pelvis. Nonobstructive left i nferior pole 6 mm calculus. Contrast is demonstrated within bilateral collecting systems on the delay ed phase. PELVIS BLADDER: Underdistended with left ureteral stent identified. REPRODUCTIVE: Unremarkable. ABDOMEN & PELVIS STOMACH AND BOWEL: Stomach and duodenum are unremarkable. No focal bowel wall thickening or surroundi ng inflammatory changes. The appendix is within normal limits. No evidence of bowel obstruction. PERITONEUM: No evidence of pneumoperitoneum or free fluid. VASCULATURE: Mild atherosclerotic calcifications are present throughout the abdominal aorta and its b ranches. No abdominal aortic aneurysm. Portal venous system appears patent. There is continued encase ment of the celiac axis and extends into the common hepatic artery and splenic artery by conglomerate lymphadenopathy. MUSCULOSKELETAL: No acute osseous abnormalities. No aggressive osseous lesion. Degenerative disc dise ase L5-S1. LYMPH NODES: Multiple enlarged and prominent retroperitoneal lymph nodes redemonstrated. Examples inc lude a marginal decrease in size of gastrohepatic lymph node measuring 2.0 cm, previously 2.2 cm. Dec reased size of 2.3 cm gastrohepatic lymph node with peripheral calcification, previously measured 3.0 cm. Marginal decrease in size of left periaortic lymph node measuring 1.9 cm, previously measured 2. 0 cm. SOFT TISSUE/ABDOMINAL WALL: Small left fat filled inguinal hernia. Small fat filled umbilical hernia. IMPRESSION: Marginal decrease to stable lymphadenopathy within the supraclavicular, mediastinal/hilar, periportal and retroperitoneal adenopathy from prior exam. No new adenopathy identified. [facility], , 05/03/2024 10:33 AM
== END | disposition home or self-care (01) ==
LOC: RADCTMAIN 09:29
PROVIDERS: ATTEND Internal Medicine
DX: C62.90 Malignant neoplasm of unspecified testis, unspecified whether descended or undescended (principal); D50.9 Iron deficiency anemia, unspecified; D51.8 Other vitamin B12 deficiency anemias; R59.0 Localized enlarged lymph nodes; R59.1 Generalized enlarged lymph nodes; Z71.3 Dietary counseling and surveillance; K42.9 Umbilical hernia without obstruction or gangrene; I70.0 Atherosclerosis of aorta; N13.39 Other hydronephrosis
CPT/HCPCS: 71260; 74177; Q9967

== ENCOUNTER → 2024-07-26 | Outpatient (CLI) | payer BC, OTHER ==
[2024-07-26 18:15] LABS: Basophils # (A) 0.09 X 10*3/uL (0.00-0.10); Basophils % (A) 0.7 %; Eosinophils # (A) 0.29 X 10*3/uL (0.04-0.35); Eosinophils % (A) 2.4 %; HCT 44.9 % (39.6-50.0); HGB 14.7 g/dL (13.0-17.0); Lymphocytes # (A) 1.67 X 10*3/uL (0.90-5.00); Lymphocytes % (A) 13.7 %; MCH 29.2 pg (27.0-32.0); MCHC 32.7 g/dL (32.0-37.0); MCV 89.1 FL (80.0-97.0); Mean Platelet Volume 9.3 FL (9.5-12.2); Monocytes # (A) 1.35 X 10*3/uL (0.20-1.00); Monocytes % (A) 11.1 %; NRBC Per 100 WBC 0 X 10*3/uL (0.00-0.01); Neutrophils # (A) 8.51 X 10*3/uL (1.80-7.70); Platelet Count 339 X 10*3/uL (140-440); RBC 5.04 X 10*6/uL (4.40-5.60); RDW 13.9 % (11.5-14.5); WBC 12.16 X 10*3/uL (4.50-10.00)
[2024-07-26 18:21] LABS: BUN/Creat Ratio 13.56 Ratio (12.00-20.00); Blood Urea Nitrogen 12.2 mg/dL (9.0-27.0); Carbon Dioxide 27.8 mmol/L (21.6-31.8); Chloride 103 mmol/L (96-109); Glucose 95 mg/dL (70-110); Potassium 4.4 mmol/L (3.5-5.5); Sodium 143 mmol/L (135-145)
[2024-07-26 18:22] LABS: Calcium 10.1 mg/dL (8.7-10.3)
== END | disposition home or self-care (01) ==
LOC: LABPAT 14:20
PROVIDERS: ATTEND Urology
DX: Z01.812 Encounter for preprocedural laboratory examination (principal); N13.30 Unspecified hydronephrosis
CPT/HCPCS: 80048; 85025

== ENCOUNTER 2024-07-28 11:15 | Day surgery (SDC) | payer BC, OTHER ==
--- NOTE | 2024-07-27 21:40 | P.GSHP ---
History of Present Illness H&P Date: 07/27/24 Chief Complaint: Left hydronephrosis The patient is a 48-year-old white male with a history of metastatic seminoma. He has left hydronephrosis due to retroperitoneal adenopathy. He was recently hospitalized and underwent insertion of a left ureteral stent on September 28, 2023. F ollowing stent placement, his hydronephrosis improved and his renal function likewise improved. Follow-up CT scan showed diminished adenopathy. He underwent cystoscopy with left ureteral stent change February 25, 2024. The stent was noted at that time to be partially calcified but patent. CT scan in April 2024 showed persistent adenopathy, with no evidence of right hydronephrosis. He does report hematuria with activity, as well as increased urinary frequency. - Genitourinary (Male) Genitourinary: Reports as per HPI Past Medical History Past Medical History: Cancer, Hyperlipidemia Additional Past Medical History / Comment(s): hx cervical and supraclavicular lymphadenopathy- .recent tx for bronchitis. prod cough. abx and steroids.06/2024 .testicular cancer dx09/2023, chemo last 12/2023. left foot pain from prior injury playing basketball. some blood in urine from kidney stent per pt. dr nugent. History of Any Multi-Drug Resistant Organisms: None Reported Past Surgical History: No Surgical Hx Reported Additional Past Surgical History / Comment(s): lymph node core biopsy right suprclavicular x2. - ureteral stents placed. teeth pulled. Past Anesthesia/Blood Transfusion Reactions: No Reported Reaction Additional Past Anesthesia/Blood Transfusion Reaction / Comment(s): no history transfusions Smoking Status: Current every day smoker - Past Family History Father Family Medical History: Diabetes Mellitus Medications and Allergies Home Medications Medication Instructions Recorded Confirmed Type Dextroamphetamine/Amphetamine 30 mg PO TID PRN 04/30/23 07/25/24 History [Adderall] Cholecalciferol (Vitamin D3) 1,250 mcg PO Q28D 09/24/23 07/25/24 History [Vitamin D3 (1250 Mcg = 50,000 Iu)] Cyanocobalamin [Vitamin B-12 1,000 mcg SQ Q30D 09/24/23 07/25/24 History Injection] ondansetron HCL [Zofran] 8 mg PO Q6H PRN 09/24/23 07/25/24 History HYDROcodone/APAP 10-325MG [[place] 1 tab PO Q6HR PRN 15 Days #30 tab 10/06/23 07/25/24 Rx 10-325] Morphine Sulfate ER [Ms Contin] 60 mg PO Q12HR 15 Days #30 tab 10/06/23 07/25/24 Rx Rosuvastatin [Crestor] 20 mg PO DAILY 07/25/24 07/25/24 History Allergies Allergy/AdvReac Type Severity Reaction Status Date / Time No Known Allergies Allergy Verified 07/25/24 15:58 Surgical - Exam - General well developed, well nourished, no distress - Respiratory normal respiratory effort - Abdomen Abdomen: soft, non tender, no guarding, no rigid, no rebound - Psychiatric oriented to time, oriented to person, oriented to place, speech is normal, memory intact Assessment and Plan (1) Unspecified hydronephrosis Status: Chronic Priority: Medium Code(s): N13.30 - UNSPECIFIED HYDRONEPHROSIS SNOMED Code(s): 94163267 Plan: Cystoscopy, left ureteral stent change. The procedure has been reviewed in detail with the patient. He is aware of potential risks, which include anesthesia, bleeding, infection, and ureteral injury.
[~2024-07-28 11:15] MED LIST changes: -LIDOCAINE 1% (10MG/ML) FOR IV START INTRADERMA PRN; -MIDAZOLAM 2 MG/2 ML VIAL IV PRN; -fentaNYL (PF) 50 MCG/ML 2 ML AMP IVP PRN
[2024-07-28] MEDS: IV FLUID CONTINUATION 1,000 ML IV ONE (11:30)
[2024-07-28] MEDS: LACTATED RINGERS 1,000 ML IV SCH (11:41)
[2024-07-28] MEDS: DEXAMETHASONE SOD PHOSPHATE 4 MG/ML 1 ML VIAL IV ONE (11:43)
[2024-07-28] MEDS: ONDANSETRON 4 MG/2 ML VIAL IVP ONE (11:43)
[2024-07-28 11:52] LABS: Glucose,Whole Blood 95 mg/dL (70-110)
[2024-07-28] MEDS ORDERED: MIDAZOLAM 2 MG/2 ML VIAL ONE (14:35)
[2024-07-28] MEDS ORDERED: PROPOFOL 10 MG/ML 20 ML VIAL IV ONE (14:35)
[2024-07-28] MEDS ORDERED: KETAMINE HCL IN 0.9 % NACL 50 MG/5 ML SYRINGE ONE (14:35)
[2024-07-28] MEDS ORDERED: fentaNYL (PF) 50 MCG/ML 2 ML AMP ONE (14:35)
--- NOTE | 2024-07-28 15:03 | P.OP ---
Date of Procedure: 07/28/24 Preoperative Diagnosis: Left hydronephrosis Postoperative Diagnosis: Same Procedure(s) Performed: Cystoscopy, left ureteral stent change Anesthesia: MAC Surgeon: Phani Camacho Estimated Blood Loss (ml): 0 IV fluids (ml): 400 Pathology: none sent Condition: stable Disposition: PACU Indications for Procedure: The patient is a 48-year-old white male with a history of metastatic seminoma. He has left hydronephrosis due to retroperitoneal adenopathy. He was recently hospitalized and underwent insertion of a left ureteral stent on September 28, 2023. Following stent placement, his hydronephrosis improved and his renal function likewise improved. Follow-up CT scan showed diminished adenopathy. He underwent cystoscopy with left ureteral stent change February 25, 2024. The stent was noted at that time to be partially calcified but patent. CT scan in 2023 showed persistent adenopathy, with no evidence of right hydronephrosis. He does report hematuria with activity, as well as increased urinary frequency. Operative Findings: The removed stent was calcified distally and it appeared that the lumen was occluded. Description of Procedure: The patient was taken to the operating room and placed in the dorsolithotomy position, with legs supported in Smith stirrups. The external genitalia was prepped and draped sterilely. 2% lidocaine gel was administered intraurethrally. The 30 lens was used to introduce the 22-Iranian Stortz cystoscopic sheath through the urethra and into the bladder under direct vision. The prostatic urethra showed evidence of mild lateral lobe enlargement. The b ladder was examined in its entirety. No abnormalities were seen. The distal end of the left ureteral stent was noted to be calcified. Grasping forceps were used to grasp the distal end of the stent, which was then removed. A 0.035 inch Glidewire was passed through the stent, but the lumen was occluded. The distal 2 cm of the stent were cut away, and it was then possible to pass the Glidewire through the stent and up to the left renal pelvis, where it coiled. A 26 cm, 6- Iranian double-J silicone ureteral stent was placed over the wire. Proper stent positioning was verified fluoroscopically and endoscopically. The bladder was emptied and the cystoscope removed. The patient tolerated the procedure well and was taken to the recovery room in stable condition.
[2024-07-28 15:10] VITALS: TEMP 97
--- NOTE | 2024-07-28 15:22 | FL ---
EXAMINATION TYPE: FL guidance operating room DATE OF EXAM: 07/28/2024 3:17 PM COMPARISON: Pre Operative Images if available both CT/MRI or plain film CLINICAL INDICATION: Male, 48 years old with history of CYSTOSCOPY LEFT HYDRONEPHROSIS; TECHNIQUE: FL guidance operating room, multiple fluoroscopic images provided for procedure. DAP: 0.5728 mGym2 Gycm2 uGym2 cGycm2 or equivalent. FINDINGS: Multiple intraoperative fluoroscopic images were taken resulting in ureteral stent placement with sup erior pigtail in appropriate position projecting over the renal pelvis. No immediate intraoperative c omplication. Multilevel degeneration changes throughout the spine. IMPRESSION: 1. No evidence for intraoperative complication. 2. Please see the operative/procedural note for further details. [facility], , 07/28/2024 3:19 PM
[2024-07-28 15:53] VITALS: RESP 16
[2024-07-28 16:18] VITALS: PULSE 70
[2024-07-28 16:19] VITALS: BP 117/74
== END 2024-07-28 16:38 | disposition home or self-care (01) ==
LOC: OR 11:15
PROVIDERS: ATTEND Urology
DX: T83.85XA Stenosis due to genitourinary prosthetic devices, implants and grafts, initial encounter (principal); N13.39 Other hydronephrosis; E78.5 Hyperlipidemia, unspecified; R31.9 Hematuria, unspecified; R35.0 Frequency of micturition; R59.0 Localized enlarged lymph nodes; F17.200 Nicotine dependence, unspecified, uncomplicated; Z79.891 Long term (current) use of opiate analgesic; Z79.899 Other long term (current) drug therapy; Z85.47 Personal history of malignant neoplasm of testis
CPT/HCPCS: 52332; J1100; J0690; J2405

== ENCOUNTER → 2024-08-01 | Outpatient (CLI) | payer BC, OTHER ==
--- NOTE | 2024-08-02 06:59 | CT ---
EXAMINATION TYPE: CT ChestAbdPelvis w con DATE OF EXAM: 08/01/2024 COMPARISON: Prior CT May 03, 2024 and older studies. CLINICAL INDICATION: Male, 48 years old with history of C62.90 MALIG NEOPLASM OF UNSP TESTIS, UNSP DE SCEND, testicular cancer, TECHNIQUE: CT scan of the thorax, abdomen and pelvis is performed with IV Contrast, patient injected with 80 mL of Isovue 300. CT DLP: 1630 mGycm. Automated Exposure Control for Dose Reduction was Utilized. FINDINGS: LUNGS: The lungs are grossly clear, there is no concerning parenchymal mass or nodule identified. T here is no pleural effusion or pneumothorax seen. The tracheobronchial tree is patent. HEART: Size within normal limits. Moderate coronary artery calcifications present. MEDIASTINUM: Fairly stable 1.6 x 1.3 cm heterogeneous lymph node adjacent to right thyroid gland axia l image 4. Fairly stable heterogeneous lymph nodes throughout the mediastinum and bilateral hilar reg ion. For reference is 2.1 x 1.6 cm lymph node right hilar level axial image 31. Trace pericardial eff usion is redemonstrated. Other: Small right pectoralis intramuscular lipoma axial image 3 is stable. LIVER/GB: Contracted gallbladder redemonstrated. PANCREAS: No significant abnormality is seen. SPLEEN: No significant abnormality is seen. ADRENALS: No significant abnormality is seen. KIDNEYS: Stable 2 mm nonobstructing calculus right kidney axial image 78. Persistent left-sided doubl e-J ureter stent. Stable 5-6 mm lower pole left renal calculus on axial image 80. Symmetric excretion redemonstrated. Prominent left renal pelvis again seen. BOWEL: No significant abnormality is seen. GENITAL ORGANS: No gross abnormality seen. LYMPH NODES: Abnormal adenopathy in the upper and mid abdomen and retroperitoneum remains present. Th is appears slightly less prominent or improved from most recent CT. For reference left periaortic lym ph node measures 2.2 x 1.6 cm there is a 77 slightly improved from prior where it was 1.9 cm short ax is. OSSEOUS STRUCTURES: Persistent mild/moderate disc space narrowing with vacuum disc phenomenon at the lumbosacral junction. OTHER: Moderate mixed plaque in the aorta extends into branch vessels. Stable small fat-containing le ft inguinal hernia. Stable small fat-containing umbilical hernia. IMPRESSION: Suspect slight improved adenopathy in the abdomen. Stable adenopathy felt present in the thorax. No new or enlarging adenopathy identified. [facility], , 08/02/2024 6:57 AM
== END | disposition home or self-care (01) ==
LOC: RADCTMAIN 15:49
PROVIDERS: ATTEND Internal Medicine
DX: C62.90 Malignant neoplasm of unspecified testis, unspecified whether descended or undescended (principal); D51.8 Other vitamin B12 deficiency anemias; R59.0 Localized enlarged lymph nodes; Z71.3 Dietary counseling and surveillance
CPT/HCPCS: 71260; 74177; Q9967

== ENCOUNTER → 2024-09-22 | Outpatient (CLI) | payer BC, OTHER ==
--- NOTE | 2024-09-22 16:51 | CT ---
EXAMINATION TYPE: CT abdomen pelvis w con DATE OF EXAM: 09/22/2024 3:56 PM COMPARISON: 08/01/2024 CLINICAL INDICATION: Male, 49 years old with history of C62.90 MALIG NEOPLASM OF UNSP TESTIS, follow up testicular cancer TECHNIQUE:CT scan of the abdomen and pelvis is performed with Oral Contrast and with IV Contrast, pat ient injected with 100 mL of Isovue 300. CT DLP: 1829.7 mGycm, Automated exposure control for dose reduction was used. FINDINGS: LUNG BASES-: No visible nodule. No infiltrate. LIVER/GB: No calcified gallstones. No space occupying hepatic lesion. Biliary tree is of normal ca liber. PANCREAS: No inflammation. No distinct mass. SPLEEN: No splenic enlargement. No lesion seen. ADRENALS: No nodule. No thickening. KIDNEYS/BLADDER: Left ureteral stent is unchanged in position. Persistent left-sided hydronephrosis. Nonobstructing nephrolithiasis redemonstrated. . No distinct renal mass. Urinary bladder grossly un remarkable. BOWEL: Normal appendix. Normal bowel caliber. No inflammation. GENITAL ORGANS: No gross abnormality. LYMPH NODES: Stable adenopathy within the periportal region measuring 2.6 cm. Stable celiac axis dominick opathy with lymph nodes measuring 2.1 cm and 1.4 cm respectively. Small lymph nodes less than 1 cm ab ove the SMA axis. Left para-aortic adenopathy measuring up to 1.8 cm. No definite pelvic adenopathy. AORTA: No significant abnormality. OSSEOUS STRUCTURES: No significant abnormality is seen. OTHER: No significant additional abnormality is seen. IMPRESSION: 1. Stable retroperitoneal adenopathy. 2. Stable fullness of the left renal collecting system with left ureteral stent in place. [facility], , 09/22/2024 4:49 PM
== END | disposition home or self-care (01) ==
LOC: RADCTMAIN 13:57
PROVIDERS: ATTEND Internal Medicine
DX: Z03.89 Encounter for observation for other suspected diseases and conditions ruled out (principal); C62.90 Malignant neoplasm of unspecified testis, unspecified whether descended or undescended; R59.0 Localized enlarged lymph nodes; Z96.0 Presence of urogenital implants
CPT/HCPCS: 74177; Q9967

== ENCOUNTER → 2024-10-25 | Outpatient (CLI) | payer BC, OTHER ==
[2024-10-25 10:59] LABS: African American GFR (CKD) >90 (>60 ml/min/1.73 sqM); Blood Urea Nitrogen 11 mg/dL (9-20); Non-African American GFR(CKD) >90 (>60 ml/min/1.73 sqM)
--- NOTE | 2024-10-29 17:18 | CT ---
EXAMINATION TYPE: CT chest w con DATE OF EXAM: 10/25/2024 11:23 AM COMPARISON: 08/01/2024 CLINICAL INDICATION: Male, 49 years old with history of C62.90 MALIG NEOPLASM OF UNSP TESTIS, UNSP DE SCEND, Testicular CA TECHNIQUE: Axial images were obtained at 5 mm thick sections. Reconstructed images are reviewed on [employer] computer in the coronal plane. Contrast used:100ml mL of Isovue 300 with IV Contrast, (none if empty) Oral contrast used: (none if empty) CT DLP: 484.4 mGycm, Automated exposure control for dose reduction was used. FINDINGS: Portion of the thyroid visualized is normal. No suspicious lung nodules or focal infiltrates are present. There are mildly prominent lymph nodes within the mediastinum and right hilum, present previously Th e ascending aorta diameter at the level of the main pulmonary artery is 3.7 cm. The main pulmonary a rtery diameter at the bifurcation is 2.8 cm. Mild coronary artery calcifications present. Limited CT sections are obtained through the upper abdomen. Abdomen is essentially unremarkable. IMPRESSION: 1. Stable appearing mildly prominent lymph nodes within the mediastinum. 2. No significant interval change [facility], , 10/29/2024 5:15 PM
== END | disposition home or self-care (01) ==
LOC: RADCTMAIN 10:20
PROVIDERS: ATTEND Internal Medicine
DX: C62.90 Malignant neoplasm of unspecified testis, unspecified whether descended or undescended (principal); D50.9 Iron deficiency anemia, unspecified; D51.8 Other vitamin B12 deficiency anemias; R59.0 Localized enlarged lymph nodes; Z71.3 Dietary counseling and surveillance
CPT/HCPCS: 82565; 84520; 71260; 36415; Q9967

== ENCOUNTER → 2024-11-21 | Outpatient (CLI) | payer BC, OTHER ==
[2024-11-21 19:25] LABS: Basophils % (A) 0.9 %; Eosinophils # (A) 0.38 X 10*3/uL (0.04-0.35); Eosinophils % (A) 3.5 %; HCT 42.1 % (39.6-50.0); HGB 13.5 g/dL (13.0-17.0); Lymphocytes # (A) 1.87 X 10*3/uL (0.90-5.00); Lymphocytes % (A) 17.4 %; MCH 28.4 pg (27.0-32.0); MCHC 32.1 g/dL (32.0-37.0); MCV 88.4 FL (80.0-97.0); Mean Platelet Volume 9.5 FL (9.5-12.2); Monocytes # (A) 1.09 X 10*3/uL (0.20-1.00); Monocytes % (A) 10.1 %; NRBC Per 100 WBC 0 X 10*3/uL (0.00-0.01); Neutrophils # (A) 6.91 X 10*3/uL (1.80-7.70); Neutrophils % (A) 64.3 %; Platelet Count 307 X 10*3/uL (140-440); RBC 4.76 X 10*6/uL (4.40-5.60); WBC 10.76 X 10*3/uL (4.50-10.00)
[2024-11-21 19:29] LABS: BUN/Creat Ratio 14.44 Ratio (12.00-20.00); Calcium 9.7 mg/dL (8.7-10.3); Carbon Dioxide 25.1 mmol/L (21.6-31.8); Chloride 102 mmol/L (96-109); Glucose 97 mg/dL (70-110); Potassium 4.7 mmol/L (3.5-5.5); Sodium 142 mmol/L (135-145)
== END | disposition home or self-care (01) ==
LOC: LABPAT 13:46
PROVIDERS: ATTEND Urology
DX: Z01.812 Encounter for preprocedural laboratory examination (principal); N13.30 Unspecified hydronephrosis
CPT/HCPCS: 80048; 85025

== ENCOUNTER 2024-11-24 06:16 | Day surgery (SDC) | payer BC, OTHER ==
[2024-11-22 14:22] VITALS: BMI 32.9
--- NOTE | 2024-11-23 22:17 | P.GSHP ---
History of Present Illness H&P Date: 11/23/24 Chief Complaint: Left hydronephrosis The patient is a 48-year-old white male with a history of metastatic seminoma. He has left hydronephrosis due to retroperitoneal adenopathy. He initially underwent insertion of a left ureteral stent on September 28, 2023. Following stent placement, his hydronephrosis improved and his renal function likewise improved. Follow-up CT scan showed diminished adenopathy. CT scan performed September 22, 2024 showed persistent adenopathy and left hydronephrosis, with no evidence of right hydronephrosis. His stent was changed most recently on July 28, 2024. The stent was noted to be calcified at that time. He does report hematuria with activity, as well as increased urinary frequency. - Genitourinary (Male) Genitourinary: Reports as per HPI Past Medical History Past Medical History: Cancer, Hyperlipidemia Additional Past Medical History / Comment(s): Hx cervical and supraclavicular lymphadenopathy, hx bronchitis,testicular cancer 09/2023, last chemo 12/2023, metastatic seminoma, left foot pain from prior injury playing basketball, left hydronephrosis due to retropertioneal adenopathy with left uretral stent, some blood in urine from kidney stent per pt. Dr nugent. History of Any Multi-Drug Resistant Organisms: None Reported Past Surgical History: No Surgical Hx Reported Additional Past Surgical History / Comment(s): Lymph node core biopsy right suprclavicular X2, ureteral stent placement and changes, teeth pulled. Past Anesthesia/Blood Transfusion Reactions: No Reported Reaction Additional Past Anesthesia/Blood Transfusion Reaction / Comment(s): No history transfusions. Smoking Status: Current every day smoker - Past Family History Father Family Medical History: Diabetes Mellitus Medications and Allergies Home Medications Medication Instructions Recorded Confirmed Type Dextroamphetamine/Amphetamine 30 mg PO TID PRN 04/30/23 11/22/24 History [Adderall] Cholecalciferol (Vitamin D3) 1,250 mcg PO Q28D 09/24/23 11/22/24 History [Vitamin D3 (1250 Mcg = 50,000 Iu)] Cyanocobalamin [Vitamin B-12 1,000 mcg SQ Q30D 09/24/23 11/22/24 History Injection] ondansetron HCL [Zofran] 8 mg PO Q6H PRN 09/24/23 11/22/24 History HYDROcodone/APAP 10-325MG [[place] 1 tab PO Q6HR PRN 15 Days #30 tab 10/06/23 11/22/24 Rx 10-325] Morphine Sulfate ER [Ms Contin] 60 mg PO Q12HR 15 Days #30 tab 10/06/23 11/22/24 Rx Rosuvastatin [Crestor] 20 mg PO DAILY 07/25/24 11/22/24 History Allergies Allergy/AdvReac Type Severity Reaction Status Date / Time No Known Allergies Allergy Verified 11/22/24 14:04 Surgical - Exam - General well developed, well nourished, no distress - Respiratory normal respiratory effort - Abdomen Abdomen: soft, non tender, no guarding, no rigid, no rebound - Genitourinary normal penis with no external lesions, testicles non-tender - Psychiatric oriented to time, oriented to person, oriented to place, speech is normal, me mónica intact Assessment and Plan (1) Unspecified hydronephrosis Status: Chronic Priority: Medium Code(s): N13.30 - UNSPECIFIED HYDRONEPHROSIS SNOMED Code(s): 46295543 Plan: Cystoscopy, left ureteral stent change. The procedure has been reviewed in detail with the patient. He is aware of potential risks, which include anesthesia, bleeding, infection, and ureteral injury.
[~2024-11-24 06:16] MED LIST changes: +LIDOCAINE 1% (10MG/ML) FOR IV START INTRADERMA PRN; +droPERidol 2.5 MG/ML VIAL IVP ONE
[2024-11-24] MEDS: IV FLUID CONTINUATION 1,000 ML IV ONE (06:35)
[2024-11-24] MEDS: DEXAMETHASONE SOD PHOSPHATE 4 MG/ML 1 ML VIAL IV ONE (07:09)
[2024-11-24] MEDS: LACTATED RINGERS 1,000 ML IV SCH (07:09)
[2024-11-24] MEDS: ONDANSETRON 4 MG/2 ML VIAL IVP ONE (07:09)
[2024-11-24] MEDS ORDERED: fentaNYL (PF) 50 MCG/ML 2 ML AMP ONE (07:35)
[2024-11-24] MEDS ORDERED: PROPOFOL 10 MG/ML 20 ML VIAL IV ONE (07:35)
[2024-11-24] MEDS ORDERED: LIDOCAINE 1% INJ 10MG/ML (20 ML MDV) ONE (07:35)
[2024-11-24] MEDS ORDERED: MIDAZOLAM 2 MG/2 ML VIAL ONE (07:35)
--- NOTE | 2024-11-24 08:05 | P.OP ---
Date of Procedure: 11/24/24 Preoperative Diagnosis: Left hydronephrosis Postoperative Diagnosis: Same Procedure(s) Performed: Cystoscopy, left ureteral stent change Anesthesia: QUINTINA Surgeon: Phani Camacho Estimated Blood Loss (ml): 0 IV fluids (ml): 500 Pathology: none sent Condition: stable Disposition: PACU Indications for Procedure: The patient is a 48-year-old white male with a history of metastatic seminoma. He has left hydronephrosis due to retroperitoneal adenopathy. He initially underwent insertion of a left ureteral stent on September 28, 2023. Following stent placement, his hydronephrosis improved and his renal function likewise improved. Follow-up CT scan showed diminished adenopathy. CT scan performed September 22, 2024 showed persistent adenopathy and left hydronephrosis, with no evidence of right hydronephrosis. His stent was changed most recently on July 28, 2024. The stent was noted to be calcified at that time. He does report hematuria with activity, as well as increased urinary frequency. Operative Findings: Successful left ureteral stent exchange. The removed stent was calcified and occluded. Description of Procedure: The patient was taken to the operating room and placed in the dorsolithotomy position, with legs supported in Smith stirrups. The external genitalia was prepped and draped sterilely. 2% lidocaine gel was administered intraurethrally. The 30 lens was used to introduce the 22-Sami Stortz cystoscopic sheath through the urethra and into the bladder under direct vision. The prostatic urethra showed evidence of mild lateral lobe enlargement. The bladder was examined in its entirety. No abnormalities were seen. The distal end of the left ureteral stent was noted to be calcified. Grasping forceps were used to grasp the distal end of the stent, which was then removed along with the cystoscope. A 0.035 inch Glidewire was passed through the stent, but the lumen was occluded. The distal 2 cm of the stent were cut away, but it was still not possible to pass the Glidewire through the stent due to occlusion of the lumen. Therefore, the stent was removed and the cystoscope was replaced into the bladder. The Glidewire was passed through the cystoscope. The left ureteral orifice was cannulated, and the Glidewire was advanced up to the left renal pelvis. A 26 cm, 6-Sami double-J ureteral stent was placed over the wire. Proper stent positioning was verified fluoroscopically and endoscopically. The bladder was emptied and the cystoscope removed. The patient tolerated the procedure well and was taken to the recovery room in stable condition.
[2024-11-24 08:17] VITALS: TEMP 98
[2024-11-24 09:13] VITALS: RESP 16
[2024-11-24 09:27] VITALS: BP 116/83; PULSE 68
--- NOTE | 2024-11-24 13:16 | FL ---
EXAMINATION TYPE: FL guidance operating room Intraoperative/procedural fluoroscopic services were pro vided. CLINICAL INDICATION:Male, 49 years old with history of Left kidney stone/stent insertion; , [facility] FINDINGS: Single fluoroscopic image demonstrating left ureteral stent. No radiographic evidence for complicatio n. Total fluoroscopy time is 5.7 seconds. DAP: 0.65978 mGym2 Please see the operative/procedural note for further details. [facility], , 11/24/2024 1:13 PM
== END 2024-11-24 09:52 | disposition home or self-care (01) ==
LOC: OR 06:16
PROVIDERS: ATTEND Urology
DX: N13.30 Unspecified hydronephrosis (principal); E78.5 Hyperlipidemia, unspecified; F90.9 Attention-deficit hyperactivity disorder, unspecified type; F17.200 Nicotine dependence, unspecified, uncomplicated; Z85.47 Personal history of malignant neoplasm of testis; Z79.899 Other long term (current) drug therapy
CPT/HCPCS: 52332; C2625; C1769; J2250; J1100; J0690; J2405; J2003; J3010; J2704

== ENCOUNTER → 2024-12-01 | Outpatient (CLI) | payer BC, OTHER ==
--- NOTE | 2024-12-01 12:13 | XR ---
EXAMINATION TYPE: XR KUB DATE OF EXAM: 12/01/2024 COMPARISON: CT abdomen and pelvis 09/23/2019 HISTORY: N13.30 HYDRONEPHROSIS TECHNIQUE: Single supine KUB image of the abdomen is obtained FINDINGS: Limited examination due to patient's body habitus. Small bowel demonstrates no evidence for dilatation or air fluid levels. Gas and fecal material is seen in non-distended colon. No convincing evidence for pneumoperitoneum. Left ureteral stent identified which appears to be in proper position. No definitive renal or uretera l calculi identified. The osseous structures are intact. IMPRESSION: 1. Overall nonobstructive bowel gas pattern. 2. Stable left ureteral stent. [facility], , 12/01/2024 12:11 PM
== END | disposition home or self-care (01) ==
LOC: RADXRMAIN 11:46
PROVIDERS: ATTEND Urology
DX: N13.30 Unspecified hydronephrosis (principal)
CPT/HCPCS: 74018